=== PATIENT | male | born 1975 | race Two or more races ===

== ENCOUNTER 2017-02-21 17:59 | Inpatient (IN) | payer OTHER ==
--- NOTE | 2017-02-21 18:03 | PDOC ---
Rapid Medical Evaluation Time Seen by Provider: 02/21/17 18:01 Medical Evaluation: Allergies Allergy/AdvReac Type Severity Reaction Status Date / Time No Known Allergies Allergy Verified 11/16/16 15:15 02/21/17 18:01 41 year old male with a history of IDDM, HTN, dyslipidemia, complaining of lower abdominal pain, vomiting, and urinary retention since morning. V/s notable for HR 135, BP 170/100 -EKG -FSBG -Labs including CBC, comp, acetone, VBG -To Main ED for further evaluation
--- NOTE | 2017-02-21 18:34 | PDOC ---
History of Present Illness <Cas Jason - Last Filed: 02/21/17 23:07> - History of Present Illness Initial Comments: 02/21/17 19:25 Patient is a 41 year old male with significant medical hx of HTN, HLD, DM, and bilateral leg wounds (secondary to fall) who is presenting to the ED with lower abdominal pain, abdominal distention, and urinary retention since this morning. Patient complains of non-radiating lower abdominal pain that makes him feel as if he has to urinate but cannot. The patient endorses some associated nausea and multiple episodes of vomiting. His last BM occurred one hour prior to the onset of his symptoms and it was reported normal without any blood or mucous. The patient was able to urinate once but states that he was only able to expel a very small amount. Denies fever, chills, past abdominal surgeries. <Melissa Rick - Last Filed: 02/21/17 23:15> - General Chief Complaint: Pain Stated Complaint: CONSTIPATION Time Seen by Provider: 02/21/17 18:01 Past History - Past Medical History Diabetes: Yes HTN: Yes Hypercholesterolemia: Yes - Psycho/Social/Smoking Cessation Hx Suicidal Ideation: No Smoking History: Never smoked Have you smoked in the past 12 months: No Information on smoking cessation initiated: No <Cas Jason - Last Filed: 02/21/17 23:07> <Melissa Rick - Last Filed: 02/21/17 23:15> - Past Medical History Allergies/Adverse Reactions: Allergies Allergy/AdvReac Type Severity Reaction Status Date / Time No Known Allergies Allergy Verified 02/21/17 18:04 Home Medications: Ambulatory Orders Atorvastatin Ca [Lipitor] 10 mg PO DAILY 11/16/16 Exenatide Microspheres [Bydureon Pen] 2 mg SQ WEEKLY 11/16/16 Insulin Lispro Protamin/Lispro [Humalog Mix 75-25 Kwikpen] 8 unit SQ TID Lisinopril 5 mg PO DAILY 11/16/16 Metformin HCl [Metformin HCl ER] 2 tab PO DAILY 11/16/16 Lasix 20 mg PO DAILY 12/13/16 Review of Systems - Review of Systems Comments:: 02/21/17 19:27 GENERAL/CONSTITUTIONAL: No fever or chills. No weakness. HEAD, EYES, EARS, NOSE AND THROAT: No change in vision. No ear pain or discharge. No sore throat. CARDIOVASCULAR: No chest pain or shortness of breath. RESPIRATORY: No cough, wheezing, or hemoptysis. GASTROINTESTINAL: Lower abdominal pain, abdominal distention, nausea, vomiting. No diarrhea or constipation. GENITOURINARY: Urinary retention. No dysuria, or frequency. MUSCULOSKELETAL: No joint or muscle swelling or pain. No neck or back pain. SKIN: No rash NEUROLOGIC: No headache, vertigo, loss of consciousness, or change in strength/ sensation. <Melissa Rick - Last Filed: 02/21/17 23:15> *Physical Exam - Vital Signs Last Vital Signs Temp Pulse Resp BP Pulse Ox 97.6 F 130 H 18 170/100 96 02/21/17 18:00 02/21/17 18:00 02/21/17 18:00 02/21/17 18:00 02/21/17 18:00 <Cas Jason - Last Filed: 02/21/17 23:07> - Vital Signs Last Vital Signs Temp Pulse Resp BP Pulse Ox 97.6 F 130 H 18 170/100 96 02/21/17 18:00 02/21/17 18:00 02/21/17 18:00 02/21/17 18:00 02/21/17 18:00 - Physical Exam Comments: 02/21/17 19:28 GENERAL: Morbidly obese. Awake, alert, and fully oriented. Obviously very uncomfortable, cannot sit still on bed, secondary to inability to urinate. HEAD: No signs of trauma EYES: PERRLA, EOMI, sclera anicteric, conjunctiva clear ENT: Auricles normal inspection, hearing grossly normal, nares patent, oropharynx clear without exudates. Moist mucosa NECK: Normal ROM, supple, no lymphadenopathy, JVD, or masses LUNGS: Breath sounds equal, clear to auscultation bilaterally. No wheezes, and no crackles HEART: Regular rate and rhythm, normal S1 and S2, no murmurs, rubs or gallops ABDOMEN: Massive, protuberant, distended. Bowel sounds are high pitched and far apart. No guarding, no rebound. EXTREMITIES: Normal range of motion, no edema. No clubbing or cyanosis. No cords, erythema, or tenderness NEUROLOGICAL: Cranial nerves II through XII grossly intact. Normal speech, normal gait SKIN: Ulcers on both feet, draining green pus. Warm, Dry, normal turgor, no rashes or lesions noted. ENDOCRINE: No increased thirst. No abnormal weight change. HEMATOLOGIC/LYMPHATIC: No anemia, easy bleeding, or history of blood clots. ALLERGIC/IMMUNOLOGIC: No hives or skin allergy. <Melissa Rick - Last Filed: 02/21/17 23:15> ED Treatment Course - LABORATORY CBC & Chemistry Diagram: 02/21/17 19:00 02/21/17 19:00 <Cas Jason - Last Filed: 02/21/17 23:07> - LABORATORY CBC & Chemistry Diagram: 02/21/17 19:00 02/21/17 19:00 <Melissa Rick - Last Filed: 02/21/17 23:15> Medical Decision Making - Medical Decision Making 02/21/17 23:13 Unable to receive good abdominal x-ray film of the patient due to the impediment of his size. The patient is also too large to receive CAT scan, so he will be treated based on clinical impression. <Melissa Rick - Last Filed: 02/21/17 23:15> *DC/Admit/Observation/Transfer - Discharge Dispostion Admit: Yes - Attestations Physician Attestion: 02/21/17 18:34 I, Dr. Cas Jason, attest that this document has been prepared under my direction and personally reviewed by me in its entirety. I further attest, that it accurately reflects all work, treatment, procedures and medical decision -making performed by me. <Cas Jason - Last Filed: 02/21/17 23:07> - Attestations Scribe Attestion: 02/21/17 19:31 Documentation prepared by Melissa Rick, acting as medical laboratory assistant for Cas Jason MD. <Melissa Rick - Last Filed: 02/21/17 23:15> Diagnosis at time of Disposition: Lymphedema, Bilateral lower leg cellulitis, Acute urinary retention, Partial obstruction of small intestine Uncontrolled diabetes mellitus Qualifiers: Diabetes mellitus type: due to underlying condition Diabetes mellitus complication status: with unspecified complications - Referrals Referrals: New De Guzman MD [Primary Care Provider] -
[2017-02-21 19:31] LABS: VENOUS BLOOD GAS HCO3 24.4 meq/L (19-25); VENOUS PH 7.42 (7.32-7.42)
[2017-02-21 19:52] LABS: BASOPHIL 0.8 % (0-2.0); EOSINOPHIL 0.2 % (0-4.5); MCH 28.3 pg (25.7-33.7); MCHC 33.2 g/dl (32.0-35.9); MEAN CELL VOLUME 85.3 fl (80-96); MEAN PLT VOLUME 8.9 fl (7.5-11.1); NEUTROPHILS 76.8 % (42.8-82.8); PLATELET COUNT 256 K/MM3 (134-434); RDW 14.3 % (11.9-15.9); WHITE BLOOD COUNT 12.3 K/mm3 (4.0-10.0)
[2017-02-21 19:58] LABS: URINE APPEARANCE SLCLOUDY; URINE BILIRUBIN NEGATIVE (NEGATIVE); URINE COLOR LTYELLOW; URINE GLUCOSE (UA) NEGATIVE (NEGATIVE); URINE KETONE TRACE (NEGATIVE); URINE LEUK ESTERASE NEGATIVE (NEGATIVE); URINE NITRITE NEGATIVE (NEGATIVE); URINE PROTEIN NEGATIVE (NEGATIVE); URINE UROBILINOGEN NEGATIVE E.U./dl (0.2-1.0)
[2017-02-21 19:59] LABS: URINE BLOOD 3+ (NEGATIVE)
[2017-02-21 20:04] LABS: URIC ACID CRYSTALS RARE /hpf (NONE SEEN); URINE MUCUS RARE; URINE RBC 386 /hpf (0-3); URINE WBC 18 /hpf (3-5)
[2017-02-21] MEDS ORDERED: ONDANSETRON 4 MG/2 ML VIAL IVPB ONE (20:08)
[2017-02-21] MEDS ORDERED: HYDROmorphone HCL CARPU-JECT 2 MG/1 ML DISP.SYRIN IVPB ONE (20:08)
[2017-02-21] MEDS ORDERED: SODIUM CHLORIDE 1,000 ML IV STA (20:09)
[2017-02-21] MEDS ORDERED: HYDROmorphone HCL CARPU-JECT 1 MG/1 ML DISP.SYRIN ONE (20:10)
[2017-02-21] MEDS ORDERED: ONDANSETRON 4 MG/2 ML VIAL ONE (20:10)
[2017-02-21 20:16] LABS: ALBUMIN 3.6 g/dl (3.4-5.0); ANION GAP 11 (8-16); CALCIUM 9.2 mg/dL (8.5-10.1); CO2 25 mmol/L (21-32); GLUCOSE,RANDOM 184 mg/dL (74-106); SGOT/AST 15 U/L (15-37); SGPT/ALT 23 U/L (12-78)
[2017-02-21 20:18] LABS: ALK PHOS 72 U/L (45-117); BILIRUBIN,TOTAL 0.4 mg/dL (0.2-1.0); TOT PROT 7.3 g/dl (6.4-8.2)
[2017-02-21] MEDS ORDERED: PIPERACILLIN/TAZOB 3.375 GM/50 ML PRE-DOCKED IV ONE (21:27)
[2017-02-21] MEDS ORDERED: VANCOMYCIN 1 GRAM (PRE-DOCKED) 1,000 MG/250 ML BAG IVPB ONE (21:27)
[2017-02-21] MEDS ORDERED: PIPERACILLIN/TAZOB 3.375 GM 50 ML IVPB ONE (23:07)
[2017-02-21] MEDS ORDERED: VANCOMYCIN 1 GRAM (PRE-DOCKED) 250 ML IVPB ONE (23:07)
[2017-02-21] MEDS ORDERED: FAMOTIDINE 20 MG/50 ML IVPB 50 ML IVPB ONE ×2 (23:36→23:47)
[2017-02-21] MEDS ORDERED: methylPREDNISolone NA SUCC 125 MG/2 ML VIAL IVPB ONE (23:37)
[2017-02-21] MEDS ORDERED: methylPREDNISolone NA SUCC 125 MG/2 ML VIAL ONE (23:47)
[2017-02-21 23:51] LABS: ACETONE SERUM NEGATIVE (NEGATIVE)
--- NOTE | 2017-02-22 00:03 | PN ---
<Lupe Villeda - Last Filed: 02/22/17 00:03> Teaching Attending Note Name of Resident: Alison Sanchez <Sayda Merchant - Last Filed: 02/22/17 01:19> Teaching Attending Note ATTENDING PHYSICIAN STATEMENT I saw and evaluated the patient. I reviewed the resident's note and discussed the case with the resident. I agree with the resident's findings and plan as documented. SUBJECTIVE: 41 yo M with PMHx of morbid obesity, who presents to the ED with lower abdominal pain and urinary retention since this morning. The patient reports associated nausea, and multiple episodes of vomiting after having lunch ( vegetable soup). He notes his last BM occurred before the onset of his pain ( nonbloody, nonmucoid). The patient states he was able to void urine however denies any dysuria, frequency, urgency or hematuria. He denies chest pain, headache or dizziness. He denies fever, chills, diarrhea or constipation. PMHx: HTN, HLD, DM, bilateral leg wounds s/p fall, kidney stones PSHx: Denies Social History: Denies toxic habits Family hx: Mother diagnosed with bone CA, HTN, liver chirrosis OBJECTIVE: Last Vital Signs Temp Pulse Resp BP Pulse Ox 97.9 F 78 16 145/88 99 02/22/17 00:15 02/22/17 00:15 02/22/17 00:15 02/22/17 00:15 02/22/17 00:15 GENERAL: +Morbidly obese. Awake, alert, and fully oriented, in no acute distress. +Pseudomonas like odor. HEENT: Atraumatic. PERRLA, EOMI. Moist mucosa. No JVD. +NG tube in place at low suction in place with clear fluid w food particles draining. LUNGS: No distress, speaks full sentences, clear to auscultation bilaterally HEART: Regular rate and rhythm, normal S1 and S2, no murmurs, rubs or gallops, peripheral pulses normal and equal bilaterally. ABDOMEN: + Obese. Soft, nontender, normoactive bowel sounds. No guarding, no rebound. No masses.+Lower abdomen with slight erythema and peau dorange appearance. : +Genitalia with oconnell catheter and dark brown and yellow urine with some blood at urethra. +Folliculitis at groin area. EXTREMITIES: +Bilateral LE edematous with weeping lesions with hyperkeratosis with clean dressing in place. +Palpable pulses and limited ROM secondary to obesity. Normal inspection, Normal range of motion. No clubbing or cyanosis. NEUROLOGICAL: Cranial nerves II through XII grossly intact. Normal speech, gait deffered, no focal sensorimotor deficits SKIN: Warm, Dry, normal turgor, no rashes or lesions noted. CBCD WBC 12.3 K/mm3 (4.0-10.0) H 02/21/17 19:00 RBC 4.62 M/mm3 (4.00-5.60) 02/21/17 19:00 Hgb 13.1 GM/dL (11.7-16.9) 02/21/17 19:00 Hct 39.4 % (35.4-49) 02/21/17 19:00 MCV 85.3 fl (80-96) 02/21/17 19:00 MCHC 33.2 g/dl (32.0-35.9) 02/21/17 19:00 RDW 14.3 % (11.9-15.9) 02/21/17 19:00 Plt Count 256 K/MM3 (134-434) 02/21/17 19:00 MPV 8.9 fl (7.5-11.1) 02/21/17 19:00 CMP Sodium 136 mmol/L (136-145) 02/21/17 19:00 Potassium 4.2 mmol/L (3.5-5.1) 02/21/17 19:00 Chloride 100 mmol/L (98-107) 02/21/17 19:00 Carbon Dioxide 25 mmol/L (21-32) 02/21/17 19:00 Anion Gap 11 (8-16) 02/21/17 19:00 BUN 19 mg/dL (7-18) H 02/21/17 19:00 Creatinine 1.0 mg/dL (0.7-1.3) D 02/21/17 19:00 Creat Clearance w eGFR > 60 (>60) 02/21/17 19:00 Calcium 9.2 mg/dL (8.5-10.1) 02/21/17 19:00 Total Bilirubin 0.4 mg/dL (0.2-1.0) D 02/21/17 19:00 AST 15 U/L (15-37) 02/21/17 19:00 ALT 23 U/L (12-78) D 02/21/17 19:00 Alkaline Phosphatase 72 U/L (45-117) D 02/21/17 19:00 Total Protein 7.3 g/dl (6.4-8.2) 02/21/17 19:00 Albumin 3.6 g/dl (3.4-5.0) 02/21/17 19:00 ASSESSMENT AND PLAN: Wound care consult Vancomycin and Zosyn Add Flagyl Surgical consult for possible obstruction NGtube at low suction IV protonix Zofran PRN Follow up Lactic Acid and labs in AM Sliding Scale insulin NPO IVF-- D5 half NS Nutrition consult Social work and PT consult Fluconazole powder DVT PPx Heparin 5,000 SQ Surgical consult- Dr. Pang Documentation prepared by Sayda Merchant, acting as certified court/medical interpreter for Lupe Villeda MD
[2017-02-22] MEDS ORDERED: ONDANSETRON 4 MG/2 ML VIAL IVPB PRN (00:05)
[2017-02-22] MEDS ORDERED: DEXTROSE 5%-0.45% SALINE 1,000 ML IV SCH (00:15)
--- NOTE | 2017-02-22 01:45 | HP ---
CHIEF COMPLAINT: Abdominal pain and urinary retention PCP: No PCP ( would like to find a PCP in [place]) Yasir Jarvis ( Wound care at [facility]) HISTORY OF PRESENT ILLNESS: Patient is a 41 year old male presented with the chief complaints of severe abdominal pain and urinary retention. As per the patient, it started yesterday morning with abdominal discomfort, feeling 'queasy', burning sensation over the supra pubic area, had a small bowel movement then had vomiting, non projectile, non bloody, containing food particles. Initially thought it was a stomach bug. He then drank a couple of glasses of water but was able to urinate only scanty in amount. He was surprised as normally he has increased frequency since he is on Lasix. He then had 6 episodes of vomiting all day with severe suprapubic and left/ right lumbar area pain, intermittent in nature, 7/10 in intensity, non radiating. Also had gassy feeling upto his throat. Due to his abdominal pain, he was unable to move. No aggravating or relieving factors. Since it was unbearable, he came to the ED. No other urinary symptoms except for mild urinary retention. Patient mentioned he tried to eat vegetable soup for lunch but couldn't keep anything down. He states that he has had B/L leg wound, since 2 years after he scracted both legs in stairs with a metal at the edge. Now the wound is getting worse, describes as draining fowl smelling serosanguinous fluids from the wounds. Patient has been going to wound care once a week at [facility] which seems to be helping. Hasn't gone since 2 weeks. He says its difficult for him to take care of the wound himself as he can't bend due to obesity. Due to his leg wound and ankle sprain (2 years ago), his mobility has been limited and gained weight quickly. Has been on DASH diet since a month and has lost about 16 lbs. While performing a physical examination in the ED, and noticed rashes around his face with hives. Found out that patient had just received zosyn. Hence, zosyn was immediately stopped and he was given IV Benadryl, IV solumedrol 125mg and IV Famotidine stat. ER course was notable for: (1) Afebrile, Tachycardic (130bpm), Hypertensive 170/100 mmHg); Leukocytosis 12.3; RBS 184; UA-Trace ketones (2) Abdominal X-ray- Dilated bowel loops (3) Nacl 1L; Dilaudid 2mg Recent Travel: None PAST MEDICAL HISTORY: Hypertension, HLD, Diabetes Mellitus, Lymphedema, B/L leg wound, ankle sprain, Nephrolithiasis PAST SURGICAL HISTORY: None Social History: Smoking: Denies Alcohol: Denies Drugs: Denies Family History: Mother diagnosed with bone CA, HTN, liver chirrosis Allergies Penicillins Allergy (Verified 02/21/17 23:40) HOME MEDICATIONS: Home Medications Medication Instructions Recorded Atorvastatin Ca [Lipitor] 10 mg PO DAILY 11/16/16 Exenatide Microspheres [Bydureon 2 mg SQ WEEKLY 11/16/16 Pen] Insulin Lispro Protamin/Lispro 8 unit SQ TID 11/16/16 [Humalog Mix 75-25 Kwikpen] Lisinopril 5 mg PO DAILY 11/16/16 Metformin HCl [Metformin HCl ER] 2 tab PO DAILY 11/16/16 Lasix 20 mg PO DAILY 12/13/16 REVIEW OF SYSTEMS CONSTITUTIONAL: Absent: fever, chills, diaphoresis, generalized weakness, malaise, loss of appetite, weight change HEENT: Absent: rhinorrhea, nasal congestion, throat pain, throat swelling, difficulty swallowing, mouth swelling, ear pain, eye pain, visual changes CARDIOVASCULAR: Absent: chest pain, syncope, palpitations, irregular heart rate, lightheadedness , peripheral edema RESPIRATORY: Absent: cough, shortness of breath, dyspnea with exertion, orthopnea, wheezing, stridor, hemoptysis GASTROINTESTINAL: Present: abdominal pain, abdominal distension, nausea, vomiting Absent: diarrhea, constipation, melena, hematochezia GENITOURINARY: Present: urinary retention Absent: dysuria, frequency, urgency, hesitancy, hematuria, flank pain, genital pain MUSCULOSKELETAL: Absent: myalgia, arthralgia, joint swelling, back pain, neck pain SKIN: Absent: rash, itching, pallor HEMATOLOGIC/IMMUNOLOGIC: Absent: easy bleeding, easy bruising, lymphadenopathy, frequent infections ENDOCRINE: Absent: unexplained weight gain, unexplained weight loss, heat intolerance, cold intolerance NEUROLOGIC: Absent: headache, focal weakness or paresthesias, dizziness, unsteady gait, seizure, mental status changes, bladder or bowel incontinence PSYCHIATRIC: Absent: anxiety, depression, suicidal or homicidal ideation, hallucinations. PHYSICAL EXAMINATION Vital Signs - 24 hr 02/22/17 00:15 Temperature 97.9 F Pulse Rate [ 78 Apical] Respiratory 16 Rate Blood Pressure 145/88 [Left Arm] O2 Sat by Pulse 99 Oximetry (%) GENERAL: Morbidly obese, Awake, alert, and fully oriented, in no acute distress , NGT in place. HEAD: Normal with no signs of trauma. EYES: EOM intact, no pallor or icterus. EARS, NOSE, THROAT: Ears normal. Moist mucous membranes. NECK: Normal range of motion, supple without lymphadenopathy, JVD, or masses. LUNGS: Breath sounds equal, clear to auscultation bilaterally. No wheezes, and no crackles. No accessory muscle use. HEART: Regular rate and rhythm, normal S1 and S2 without murmur, rub or gallop. ABDOMEN: Soft, tenderness over the supra pubic area and left and right lumbar area, distended +, normoactive bowel sounds, no guarding, no rebound, no masses. Hepatosplenomegaly couldn't be appreciated due to obesity. MUSCULOSKELETAL: Normal range of motion at all joints. No bony deformities or tenderness. No CVA tenderness. UPPER EXTREMITIES: 2+ pulses, warm, well-perfused. No cyanosis. No clubbing. No peripheral edema. LOWER EXTREMITIES: B/L lymphedema, dressing applied over the wound, no soakage, fowl smellling. NEUROLOGICAL: Cranial nerves II-XII intact. Normal speech. Gait not observed. PSYCHIATRIC: Cooperative. Good eye contact. Appropriate mood and affect. GENITOURINARY: Oconnell catheter in place, dark brown and yellow urine with some blood at urethra. SKIN: Warm, dry, normal turgor, rashes with hives all over the face; folliculitis over the pubic area; fungal infection over the supra pubic area. ASSESSMENT/PLAN: Patient is a 41 year old male with significant past medical history of Hypertension, HLD, Diabetes Mellitus, Lymphedema, B/L leg wound, ankle sprain, Nephrolithiasis presented with the chief complaints of severe abdominal pain and urinary retention. # Possible Small bowel Obstruction Patient presented with severe abdominal pain with nausea, 6 episodes of vomiting and mild urinary retention On arrival, Afebrile, Tachycardic (130bpm), Hypertensive 170/100 mmHg); Leukocytosis 12.3; RBS 184; UA-Trace ketones In the ED, he received Nacl 1L; Dilaudid 2mg, Vancomycin and Zosyn. As soon as he received zosyn, he developed rashes with hives all over his face. It was stopped immediately and IV Benadryl, IV solumedrol and IV famotidine was given Stat. CT scan of abdomen/pelvis couldn't be done as patient is morbidly obese and overweight for the CT scan. Abdominal x-ray report as mentioned above. Admitted in Med-Surg NPO NG tube IV fluids-D5-1/2 NS IV Flagyl Q8H IV Levofloxacin 750mg Daily Pain control Zofran 8mg Q6H PRN Dr. Pang consult placed # Sepsis likely due to B/L leg wound Has B/L leg wound since 2 years, getting worse, visits wound care once a week x 2months, hasn't visited since 2 weeks. Draining serosanguinous fluids, fowl smelling SIRS criteria (leukocytosis of 12.3; Tachycardic 130bpm + source) Lactic acid 0.9 IVF continued IV Vancomycin 1250mg continued, vanc trough to be sent one hour before the 4th dose Wound care consult placed Wound culture pending Needs penitentiary rehab vamp cut out worker consult placed # Morbidly obese Discussed in depth about various possiblities to reduce weight. Patient currently unable to exercise due to his leg wounds. Swimming would be an option after his wound heals Wash Driller Helper consult placed Needs penitentiary rehab # Uncontrolled Diabetes Last HbA1c- 16 Finger stick glucose monitoring Insulin sliding scale HbA1c pending # Mild urinary retention with no other urinary symptoms In the ED, while placing oconnell, got 300mls of urine. Oconnell catheter in place. # Hypertension Lisinopril 5mg on hold due to NPO RN to notify MD if BP > 150/90mmHg # Hyperlipidemia Lipitor on hold Lipid panel pending # Lymphedema Tried the pressure machine but is unable to do so due to muscle cramps. Maybe after the wound heals, compression stockings can help. # Fungal Infection In the groin area Nystatin powder Maintain hygiene, keep the area dry # FEN IV D5-1/2 NS @ 100mls/hr Electrolytes to be repeated tomorrow NPO # Prophylaxis For DVT- On Heparin 5000 IU sq For GI- IV Pantoprazole 40mg BID # Code Status: Full Code # Dispo: Admitted in Med-Surg. Duration of stay unknown. Case seen and discussed with Dr. Villeda. Illness, Investigation and Plan of care explained to the patient. He verbalized understanding. Case seen and discussed with Dr. Villeda. Visit type - Emergency Visit Emergency Visit: Yes ED Registration Date: 02/21/17 Care time: The patient presented to the Emergency Department on the above date and was hospitalized for further evaluation of their emergent condition. - New Patient This patient is new to me today: Yes Date on this admission: 02/21/17 - Critical Care Critical Care patient: No
[2017-02-22 04:14] VITALS: BMI 90.8
[2017-02-22] MEDS: METRONIDAZOLE PREMIXED IVPB 50 ML IVPB SCH ×2 (04:26→09:51)
[2017-02-22] MEDS: HEPARIN NA (PORCINE) 5,000 UNITS/ML 1ML VIAL SQ SCH ×3 (05:58→21:34)
[2017-02-22] MEDS: LEVOFLOXACIN 750 MG IVPB 150 ML IVPB SCH (05:58)
[2017-02-22] MEDS: INSULIN SLIDING SCALE (NOVOLOG) 1 VIAL SQ SCH ×4 (06:09→21:36)
[2017-02-22 08:25] LABS: BASOPHIL 0.3 % (0-2.0); MCH 28.3 pg (25.7-33.7); MCHC 32.7 g/dl (32.0-35.9); MEAN CELL VOLUME 86.4 fl (80-96); MEAN PLT VOLUME 8.6 fl (7.5-11.1); NEUTROPHILS 89.2 % (42.8-82.8); PLATELET COUNT 242 K/MM3 (134-434); RDW 14.6 % (11.9-15.9); WHITE BLOOD COUNT 8.6 K/mm3 (4.0-10.0)
[2017-02-22 08:30] LABS: INR 1.17 (0.82-1.09); PROTHROMBIN TIME (PATIENT) 12.9 SEC (9.98-11.88)
[2017-02-22 08:33] LABS: ACTIVATED PTT 29.2 SECONDS (26.9-34.4)
[2017-02-22 08:47] LABS: CHOLESTEROL 109 mg/dL (50-200)
[2017-02-22 08:53] LABS: ALBUMIN 3.2 g/dl (3.4-5.0); ANION GAP 11 (8-16); CALCIUM 8.9 mg/dL (8.5-10.1); CO2 27 mmol/L (21-32); GLUCOSE,RANDOM 289 mg/dL (74-106); MAGNESIUM 2.3 mg/dL (1.8-2.4); PHOSPHOROUS 3.4 mg/dL (2.5-4.9); SGOT/AST 12 U/L (15-37)
[2017-02-22 09:01] LABS: ALK PHOS 62 U/L (45-117); BILIRUBIN,TOTAL 0.5 mg/dL (0.2-1.0); CREATININE 0.9 mg/dL (0.7-1.3); SGPT/ALT 20 U/L (12-78); TOT PROT 6.8 g/dl (6.4-8.2)
[2017-02-22] MEDS: PANTOPRAZOLE SODIUM 40 MG/100 ML PRE-DOCKED IVPB SCH ×2 (09:50→21:34)
[2017-02-22] MEDS ORDERED: PANTOPRAZOLE SODIUM 40 MG in SODIUM CHLORIDE 100 ML IVPB SCH (10:00)
[2017-02-22] MEDS ORDERED: FUROSEMIDE 40 MG/4 ML INJECTABLE VIAL IVPB SCH (10:00)
[2017-02-22] MEDS ORDERED: VANCOMYCIN 1,250 MG in DEXTROSE 5%-WATER - 250 ML IVPB SCH (10:00)
--- NOTE | 2017-02-22 10:03 | EKG ---
Test Reason : Blood Pressure : / mmHG Vent. Rate : 088 BPM Atrial Rate : 088 BPM P-R Int : 120 ms QRS Dur : 108 ms QT Int : 384 ms P-R-T Axes : 020 027 017 degrees QTc Int : 464 ms POOR DATA QUALITY, INTERPRETATION MAY BE ADVERSELY AFFECTED NORMAL SINUS RHYTHM INCOMPLETE RIGHT BUNDLE BRANCH BLOCK NO PREVIOUS ECGS AVAILABLE Confirmed by SID GREEN MD ([id number]) on 02/22/2017 10:03:26 AM Referred By: Confirmed By:SID GREEN MD
--- NOTE | 2017-02-22 11:15 | CONSULT ---
Consult Consult Specialty:: surgery Reason for Consultation:: SBO? - History of Present Illness Chief Complaint: abd pain History of Present Illness: pt is a 41M with lower abd pain and urinary retention. he is a BMI 90 patient and only had xray. could not fit in CT. Patient got NGT and put out 150cc overnight. +flatus. got oconnell and it is full of clear urine. his wbc is now 8. glucose poorly controlled. he denies any kind of abd pain right now. - Smoking History Smoking history: Never smoked Have you smoked in the past 12 months: No Home Medications - Allergies Allergies/Adverse Reactions: Allergies Allergy/AdvReac Type Severity Reaction Status Date / Time Penicillins Allergy Verified 02/21/17 23:40 piperacillin sodium Allergy Verified 02/22/17 03:52 [From Zosyn] tazobactam sodium Allergy Verified 02/22/17 03:52 [From Zosyn] - Home Medications Home Medications: Ambulatory Orders Atorvastatin Ca [Lipitor] 10 mg PO DAILY 11/16/16 Exenatide Microspheres [Bydureon Pen] 2 mg SQ WEEKLY 11/16/16 Insulin Lispro Protamin/Lispro [Humalog Mix 75-25 Kwikpen] 8 unit SQ TID Lisinopril 5 mg PO DAILY 11/16/16 Metformin HCl [Metformin HCl ER] 2 tab PO DAILY 11/16/16 Lasix 20 mg PO DAILY 12/13/16 Family Disease History - Family Disease History Family History: Denies Review of Systems - Review of Systems Constitutional: denies: Chills, Fever Eyes: denies: Blind Spots, Blurred Vision HENT: denies: Difficult Swallowing, Mouth Swelling Neck: denies: Decreased ROM, Lumps Cardiovascular: denies: Chest Pain, Edema Respiratory: denies: Cough, SOB Gastrointestinal: reports: Abdominal Pain Genitourinary: reports: Other (retention?) Breasts: denies: Pain, Skin Changes Musculoskeletal: denies: Back Pain, Crepitus Integumentary: reports: Other (legs with chronic infection/venous stasis?) Neurological: denies: Change in LOC, Incoordination, Unsteady Gait Endocrine: reports: Other (poor DM control). denies: Excessive Sweating, Flushing Hematology/Lymphatic: denies: Easily Bruised, Excessive Bleeding Psychiatric: denies: Altered Sleep Pattern, Anxiety Physical Exam Vital Signs: Vital Signs Temperature 97.8 F 02/22/17 10:04 Pulse Rate 94 H 02/22/17 10:04 Respiratory Rate 19 02/22/17 10:04 Blood Pressure 120/55 02/22/17 10:04 O2 Sat by Pulse Oximetry (%) 93 L 02/22/17 02:10 Constitutional: Yes: No Distress, Calm Eyes: Yes: Conjunctiva Clear, EOM Intact HENT: Yes: Atraumatic, Normocephalic Neck: Yes: Supple, Trachea Midline Cardiovascular: Yes: Regular Rate and Rhythm Respiratory: Yes: Regular, CTA Bilaterally Gastrointestinal: Yes: Soft, Abdomen, Obese, Other (could not appreciate hernias but abd obesity is very impressive). No: Distention, Tenderness ...Rectal Exam: Yes: Deferred Renal/: Yes: Oconnell Present. No: CVA Tenderness - Left, CVA Tenderness - Right Musculoskeletal: No: Joint Stiffness, Joint Swelling Extremities: No: Calf Tenderness, Erythema Integumentary: No: Erythema, Rash Neurological: Yes: Alert, Oriented Psychiatric: Yes: Alert, Oriented Labs: CBC, BMP 02/22/17 06:30 02/22/17 06:30 Imaging - Results X-ray: Image Reviewed Problem List - Problems (1) Acute urinary retention Code(s): R33.8 - OTHER RETENTION OF URINE (2) Lymphedema Code(s): I89.0 - LYMPHEDEMA, NOT ELSEWHERE CLASSIFIED (3) Partial obstruction of small intestine Assessment/Plan: doubt SBO as dx no prior surgical hx ngt d/belen start clear liquid diet may have had some ileus from urinary retention? oconnell as per medicine adv diet as tolerated reconsult prn Code(s): K56.69 - OTHER INTESTINAL OBSTRUCTION (4) Uncontrolled diabetes mellitus Code(s): E11.65 - TYPE 2 DIABETES MELLITUS WITH HYPERGLYCEMIA Qualifiers: Diabetes mellitus type: due to underlying condition Diabetes mellitus complication status: with unspecified complications
[2017-02-22] MEDS: VANCOMYCIN 1,250 MG in DEXTROSE 5%-WATER - 250 ML IVPB SCH (11:49)
[2017-02-22] MEDS: NYSTATIN POWDER 100,000 UNITS/GM - 15 GM TOPICAL POWDER TP SCH (11:49)
[2017-02-22] MEDS ORDERED: SODIUM CHLORIDE 1,000 ML IV SCH (12:30)
[2017-02-22 13:13] LABS: LDL CHOLESTEROL (ONLY SJRH) 62 mg/dL (5-100)
[2017-02-22 13:37] LABS: THYROID STIMULATING HORMONE 0.69 uIU/ml (0.358-3.74)
--- NOTE | 2017-02-22 13:40 | PN ---
Physical Exam: SUBJECTIVE: Patient seen and examined Patient resting in bed NAD. afebrilke hemodynamically stable. NGT pulled out this morning. tolerating liquids. Denies n/v, abd pain. No BM since yesterday. Denies having buring with urineation before oconnell was placed. denies f/c, chest pain, sob. States he missed 2 wound care appointments but thinks his legs look about the same as baseline. OBJECTIVE: Vital Signs Period Temp Pulse Resp BP Sys/Eric Pulse Ox Last 24 Hr 97.3 F-98.1 F 78-94 16-19 120-145/55-88 93-99 GENERAL: The patient is awake, alert, and fully oriented, in no acute distress. HEAD: Normal with no signs of trauma. EYES: PERRL, extraocular movements intact, sclera anicteric, conjunctiva clear. No ptosis. ENT: moist mucous membranes. NECK: supple. LUNGS: restricted air movement, distal breath sounds. HEART: Regular rate and rhythm, S1, S2 ABDOMEN: obese, Soft, nontender, nondistended, normoactive bowel sounds, no guarding, no rebound, no hepatosplenomegaly, no masses. Lower EXTREMITIES: 1+ pulses, warm, well-perfused, b/l 3+ edema, chronic lumphadenopathy, reddish discoloration, posterior b/l calf ulcers, minimal foul smelling green discharge, pink granulation tissue. No apparent cellulitis NEUROLOGICAL: Cranial nerves II through XII grossly intact. Normal speech, gait not observed. PSYCH: Normal mood, normal affect. SKIN: Warm, dry, lesions as above Laboratory Results - last 24 hr 02/22/17 02/22/17 02/22/17 00:49 05:42 06:30 WBC 8.6 D RBC 4.70 Hgb 13.3 Hct 40.6 MCV 86.4 MCHC 32.7 RDW 14.6 Plt Count 242 MPV 8.6 Neutrophils % 89.2 H Lymphocytes % 9.3 D Monocytes % 1.2 L D Eosinophils % 0.0 D Basophils % 0.3 INR PTT (Actin FS) Sodium Potassium Chloride Carbon Dioxide Anion Gap BUN Creatinine Creat Clearance w eGFR POC Glucometer 259 Random Glucose Lactic Acid 0.973 Calcium Phosphorus Magnesium Total Bilirubin AST ALT Alkaline Phosphatase Total Protein Albumin Triglycerides Cholesterol Total LDL Cholesterol HDL Cholesterol 0302/22/17 02/22/17 06:30 06:30 06:30 WBC RBC Hgb Hct MCV MCHC RDW Plt Count MPV Neutrophils % Lymphocytes % Monocytes % Eosinophils % Basophils % INR 1.17 H PTT (Actin FS) 29.2 Sodium 138 Potassium 4.6 Chloride 100 Carbon Dioxide 27 Anion Gap 11 BUN 15 D Creatinine 0.9 Creat Clearance w eGFR > 60 POC Glucometer Random Glucose 289 H D Lactic Acid Calcium 8.9 Phosphorus 3.4 Magnesium 2.3 Total Bilirubin 0.5 D AST 12 L ALT 20 Alkaline Phosphatase 62 Total Protein 6.8 Albumin 3.2 L Triglycerides 51 Cholesterol 109 Total LDL Cholesterol 62 HDL Cholesterol 44 02/22/17 11:51 WBC RBC Hgb Hct MCV MCHC RDW Plt Count MPV Neutrophils % Lymphocytes % Monocytes % Eosinophils % Basophils % INR PTT (Actin FS) Sodium Potassium Chloride Carbon Dioxide Anion Gap BUN Creatinine Creat Clearance w eGFR POC Glucometer 273 Random Glucose Lactic Acid Calcium Phosphorus Magnesium Total Bilirubin AST ALT Alkaline Phosphatase Total Protein Albumin Triglycerides Cholesterol Total LDL Cholesterol HDL Cholesterol Active Medications Generic Name Dose Route Start Last Admin Trade Name Ezequiel PRN Reason Stop Dose Admin Heparin Sodium (Porcine) 5,000 unit 02/22/17 06:00 02/22/17 05:58 Heparin - SQ 5,000 unit TID NANCY Administration Levofloxacin 150 mls @ 100 mls/hr 02/22/17 06:00 02/22/17 05:58 Levaquin 750 Mg Premixed Ivpb - IVPB 100 mls/hr DAILY NANCY Administration Vancomycin HCl 1,250 mg/ 250 mls @ 166.667 mls/hr 02/22/17 10:00 02/22/17 11:49 Dextrose IVPB 166.667 mls/hr DAILY NANCY Administration Protocol Sodium Chloride 1,000 mls @ 75 mls/hr 02/22/17 12:30 Normal Saline - IV ASDIR NANCY Metronidazole 100 mls @ 100 mls/hr 02/22/17 18:00 Flagyl 500mg Premixed Ivpb - IVPB Q8H-IV NANCY Insulin Aspart 1 vial 02/22/17 07:00 02/22/17 11:53 Novolog Vial Sliding Scale - SQ 6 units ACHS ANNCY Administration Protocol Nystatin 1 applic 02/22/17 10:00 02/22/17 11:49 Nystop Powder - TP 1 applic DAILY NANCY Administration Ondansetron HCl 8 mg 02/22/17 00:05 Zofran Injection IVPB Q6H PRN NAUSEA Pantoprazole Sodium 40 mg 02/22/17 10:00 02/22/17 09:50 Protonix 40mg Ivpb (Pre-Docked) IVPB 40 mg BID NANCY Administration ASSESSMENT/PLAN: Patient is a 41 year old male with significant past medical history of Hypertension, HLD, Diabetes Mellitus, Lymphedema, B/L leg wound, ankle sprain, Nephrolithiasis presented with the chief complaints of severe abdominal pain and urinary retention. Urinary retention r/o renal stone obstruction, r/o UTI -accompanied by n/v (resolved) -abd xray no evident of bowel obstruction -ho history bowel surgery -Tiffanie consult appreciated, sign off -history of renal stones -Oconnell 600 cc UO, input 1450 -UA hematuria, 18 wbc -Renal US r/o hydro -Ideally pelvic CT but unable due to obesity -flomax -can stop IVF -consider urology consult B/L leg wound -chronic x 2 yrs -chronic lymphedema -regular wound care visits -posterior calf wounds, minimal foul smelling green discharge, doesn't appear infected -wound care consult appreciated, wounds at baseline, no acute infection -f/u in wound care outpatient -daily dressing changes -contine MRSA and Pseudominas coverage (abner Anand, keyshawn: zosyn allergy) until ID evaluates -ID counsult -hold lasix Morbid obesity -Discussed weight loss strategy. -Director Asset consult placed Uncontrolled IDDM2 -Last HbA1c- 16 -repeat -Insulin sliding scale -will likely require basal coverage HTN -hold Lisinopril 5mg -currently normotensive off meds. will start on ca channel myles if hypertensive HLD -Lipitor on hold -Lipid panel pending Fungal Infection -groin area -Nystatin powder FEN No ivf lytes stable soft diabetic diet PPX: For DVT- On Heparin 5000 IU sq For GI- IV Pantoprazole 40mg BID Dispo: Med-Surg Problem List - Problems (1) Acute urinary retention Code(s): R33.8 - OTHER RETENTION OF URINE (2) Bilateral lower leg cellulitis Code(s): L03.116 - CELLULITIS OF LEFT LOWER LIMB L03.115 - CELLULITIS OF RIGHT LOWER LIMB (3) Lymphedema Code(s): I89.0 - LYMPHEDEMA, NOT ELSEWHERE CLASSIFIED (4) Uncontrolled diabetes mellitus Code(s): E11.65 - TYPE 2 DIABETES MELLITUS WITH HYPERGLYCEMIA Qualifiers: Diabetes mellitus type: due to underlying condition Diabetes mellitus complication status: with unspecified complications Visit type - Emergency Visit Emergency Visit: Yes ED Registration Date: 02/21/17 Care time: The patient presented to the Emergency Department on the above date and was hospitalized for further evaluation of their emergent condition. - New Patient This patient is new to me today: Yes Date on this admission: 02/22/17 - Critical Care Critical Care patient: No - Discharge Referral Referred to [facility] No
[2017-02-22] MEDS ORDERED: TAMSULOSIN HCL 0.4 MG CAP.ER.24H (FP) PO ONE (14:15)
--- NOTE | 2017-02-22 15:40 | PN ---
Teaching Attending Note Name of Resident: Emi Fisher ATTENDING PHYSICIAN STATEMENT I saw and evaluated the patient. I reviewed the resident's note and discussed the case with the resident. I agree with the resident's findings and plan as documented. SUBJECTIVE: no fever or chills, no abd pain , denies any N/V now . s/p removal of NG tube and he tolerated clears. abd pain resolved OBJECTIVE: NAD , AAox3 Lungs : CTAb Abd : morbidly obese, NT, NL BS . Ext : chronic discolored skin changes on lower legs . Green discharge from posterior lower legs . no increased warmth . ASSESSMENT AND PLAN: 41 y/o MAn withh/o HTN, HLP, Dm, chronic wounds on LE , and lymphedema who presented with severe abd pain , N/V , and urinary retention 1- Abd pain /N/V : KUB with no signs of obstruction . probably his pain was due to urinary retention and bladder distention, now resolved. possible UTI due to pyuria , but also possible nephrolithiasis with his significant hematuria . - s/p removal of NGT. advance diet to soft - follow urine cx - cont oconnell for now , and do voidal trials tomorrow - will get US of kidneys , and bladder although , it might be of limited benefit 2- DM : takes mixed insulin and exenetide and metformin at home . -hold metformin - cont SSI - add levemir this evening 3- infected LE wounds ; past cultures of wounds showed MRSa , eneterococcas Feacalis and strep - cont vanco - He is allergic to zosyn ( rash in Er with zosyn ) . started on levaquin and flagyl. will appreciate ID recs 4- HTN : will repeat renal function and resume lisinopril dc IVF as started diet 5- DVT pX
--- NOTE | 2017-02-22 17:17 | CONSULT ---
Consult Consult Specialty:: infectious diseases Reason for Consultation:: bilateral cellulitis of the legs,int obstruction - History of Present Illness History of Present Illness: 41 year old male with a past medical history of HTN, DM, bilateral leg wounds and lymphedema was admitted initially wiht increased blood sugars since patient has not been taking insulin . hospital course included abd pain and urinary issues. patient was evaluated by surgery and ng tube was placed which was then removed and foleys was placed patient currently feeling much better and has had flatus patient has chronic issues with the legs left leg worse than right and has greenish discharge with foul smell - History Source History Provided By: Patient Limitations to Obtaining History: No Limitations - Smoking History Smoking history: Never smoked Have you smoked in the past 12 months: No Home Medications - Allergies Allergies/Adverse Reactions: Allergies Allergy/AdvReac Type Severity Reaction Status Date / Time Penicillins Allergy Verified 02/21/17 23:40 piperacillin sodium Allergy Verified 02/22/17 03:52 [From Zosyn] tazobactam sodium Allergy Verified 02/22/17 03:52 [From Zosyn] - Home Medications Home Medications: Ambulatory Orders Atorvastatin Ca [Lipitor] 10 mg PO DAILY 11/16/16 Exenatide Microspheres [Bydureon Pen] 2 mg SQ WEEKLY 11/16/16 Insulin Lispro Protamin/Lispro [Humalog Mix 75-25 Kwikpen] 8 unit SQ TID Lisinopril 5 mg PO DAILY 11/16/16 Metformin HCl [Metformin HCl ER] 2 tab PO DAILY 11/16/16 Lasix 20 mg PO DAILY 12/13/16 Family Disease History - Family Disease History Other Family History: no relevant Review of Systems - Review of Systems Constitutional: reports: No Symptoms Eyes: reports: No Symptoms HENT: reports: No Symptoms Neck: reports: No Symptoms Cardiovascular: reports: No Symptoms Respiratory: reports: No Symptoms Gastrointestinal: reports: No Symptoms Musculoskeletal: reports: Extremity Pain, Muscle Pain Integumentary: reports: Erythema, Wound, Other Neurological: reports: No Symptoms Endocrine: reports: No Symptoms Hematology/Lymphatic: reports: No Symptoms Psychiatric: reports: No Symptoms Physical Exam Vital Signs: Vital Signs Temperature 98 F 02/22/17 16:42 Pulse Rate 90 02/22/17 16:42 Respiratory Rate 18 02/22/17 16:42 Blood Pressure 109/66 02/22/17 16:42 O2 Sat by Pulse Oximetry (%) 94 L 02/22/17 09:00 Constitutional: Yes: Calm, Obese (morbidly obese) Eyes: Yes: Conjunctiva Clear HENT: Yes: Atraumatic Neck: Yes: Supple Cardiovascular: Yes: Regular Rate and Rhythm Respiratory: Yes: Regular, Poor Air Entry, Other Gastrointestinal: Yes: Normal Bowel Sounds, Soft Renal/: Yes: [place] Present Musculoskeletal: Yes: Other Extremities: Yes: Other (patient has chr lymph edema of both legs alsobilateral wounds on both legs left worse than right,draianing greenish discharge) Edema: LLE: 1+, RLE: 1+ Integumentary: Yes: Erythema, Skin Tear, Other Wound/Incision: Yes: Clean/Dry, Dressing Removed, Other (mild draiange) Neurological: Yes: Alert, Oriented Psychiatric: Yes: Alert, Oriented Labs: CBC, BMP 02/22/17 06:30 02/22/17 15:25 Imaging - Results X-ray: Report Reviewed, Image Reviewed Assessment/Plan sunny List - Problems (1) Acute urinary retention Code(s): R33.8 - OTHER RETENTION OF URINE (2) Lymphedema Code(s): I89.0 - LYMPHEDEMA, NOT ELSEWHERE CLASSIFIED (3) Partial obstruction of small intestine Code(s): K56.69 - OTHER INTESTINAL OBSTRUCTION (4) Uncontrolled diabetes mellitus Code(s): E11.65 - TYPE 2 DIABETES MELLITUS WITH HYPERGLYCEMIA Qualifiers: Diabetes mellitus type: due to underlying condition Diabetes mellitus complication status: with unspecified complications morbid obesity bilateral wound of the legs patient was started on levo and flagyl patient started on vanco plan continue current mgmt wound care rest as per surgery physio if possible continue abx
[2017-02-22] MEDS: METRONIDAZOLE 500 MG PREMIXED 100 ML IVPB SCH (17:49)
[2017-02-22] MEDS ORDERED: ATORVASTATIN CA 10 MG TABLET (FP) PO SCH (22:00)
[2017-02-22] MEDS ORDERED: INSULIN DETEMIR 100 UNITS/ML MDV SQ SCH (22:00)
[2017-02-23] MEDS: METRONIDAZOLE 500 MG PREMIXED 100 ML IVPB SCH ×2 (01:04→10:02)
[2017-02-23] MEDS: INSULIN SLIDING SCALE (NOVOLOG) 1 VIAL SQ SCH ×2 (06:20→11:38)
[2017-02-23] MEDS: HEPARIN NA (PORCINE) 5,000 UNITS/ML 1ML VIAL SQ SCH ×2 (06:20→13:29)
[2017-02-23 07:27] LABS: MCH 28.3 pg (25.7-33.7); MCHC 32.9 g/dl (32.0-35.9); MEAN PLT VOLUME 8.4 fl (7.5-11.1); PLATELET COUNT 216 K/MM3 (134-434); RDW 14.7 % (11.9-15.9); WHITE BLOOD COUNT 11.4 K/mm3 (4.0-10.0)
[2017-02-23 07:56] LABS: CALCIUM 8.8 mg/dL (8.5-10.1); MAGNESIUM 2.1 mg/dL (1.8-2.4)
[2017-02-23 07:58] LABS: CREATININE 0.9 mg/dL (0.7-1.3)
[2017-02-23] MEDS ORDERED: LISINOPRIL 5 MG TABLET (FP) PO SCH (10:00)
[2017-02-23] MEDS: PANTOPRAZOLE SODIUM 40 MG/100 ML PRE-DOCKED IVPB SCH (10:02)
[2017-02-23] MEDS: LEVOFLOXACIN 750 MG IVPB 150 ML IVPB SCH (10:04)
[2017-02-23] MEDS: NYSTATIN POWDER 100,000 UNITS/GM - 15 GM TOPICAL POWDER TP SCH (10:06)
[2017-02-23] MEDS: VANCOMYCIN 1,250 MG in DEXTROSE 5%-WATER - 250 ML IVPB SCH (11:38)
--- NOTE | 2017-02-23 13:09 | PN ---
Progress Note, Physician History of Present Illness: patient doing well no new issues says he is doing well leg drainage better - Current Medication List Current Medications: Active Medications Atorvastatin Calcium (Lipitor -) 10 mg PO HS [facility] Last Admin: 02/22/17 21:33 Dose: 10 mg Heparin Sodium (Porcine) (Heparin -) 5,000 unit SQ TID [facility] Last Admin: 02/23/17 06:20 Dose: 5,000 unit Levofloxacin (Levaquin 750 Mg Premixed Ivpb -) 150 mls @ 100 mls/hr IVPB DAILY [facility] Last Admin: 02/23/17 10:04 Dose: 100 mls/hr Vancomycin HCl 1,250 mg/ (Dextrose) 250 mls @ 166.667 mls/hr IVPB DAILY [facility] PRN Reason: Protocol Last Admin: 02/23/17 11:38 Dose: 166.667 mls/hr Metronidazole (Flagyl 500mg Premixed Ivpb -) 100 mls @ 100 mls/hr IVPB Q8H-IV [facility] Last Admin: 02/23/17 10:02 Dose: 100 mls/hr Insulin Aspart (Novolog Vial Sliding Scale -) 1 vial SQ ACHS [facility] PRN Reason: Protocol Last Admin: 02/23/17 11:38 Dose: 4 units Insulin Detemir (Levemir Vial) 20 units SQ [facility] Lisinopril (Prinivil) 5 mg PO DAILY [facility] Last Admin: 02/23/17 10:06 Dose: 5 mg Nystatin (Nystop Powder -) 1 applic TP DAILY [facility] Last Admin: 02/23/17 10:06 Dose: 1 applic Ondansetron HCl (Zofran Injection) 8 mg IVPB Q6H PRN PRN Reason: NAUSEA Pantoprazole Sodium (Protonix 40mg Ivpb (Pre-Docked)) 40 mg IVPB BID [facility] Last Admin: 02/23/17 10:02 Dose: 40 mg - Objective Vital Signs: Vital Signs Temperature 97.6 F 02/23/17 10:09 Pulse Rate 80 02/23/17 10:09 Respiratory Rate 20 02/23/17 10:09 Blood Pressure 111/61 02/23/17 10:09 O2 Sat by Pulse Oximetry (%) 94 L 02/23/17 09:56 Constitutional: Yes: No Distress, Calm, Obese (morbid obesity) Cardiovascular: Yes: Regular Rate and Rhythm Respiratory: Yes: Regular, CTA Bilaterally Gastrointestinal: Yes: Normal Bowel Sounds, Soft Musculoskeletal: Yes: WNL Extremities: Yes: Other (left leg draiange resolving) Integumentary: Yes: Venous Stasis Changes Wound/Incision: Yes: Dressing Dry and Intact Neurological: Yes: Alert, Oriented Psychiatric: Yes: Alert Labs: CBC, BMP 02/23/17 06:05 02/23/17 06:05 INR, PTT INR 1.17 (0.82-1.09) H 02/22/17 06:30 Assessment/Plan [facility] List - Problems (1) Acute urinary retention Code(s): R33.8 - OTHER RETENTION OF URINE (2) Lymphedema Code(s): I89.0 - LYMPHEDEMA, NOT ELSEWHERE CLASSIFIED (3) Partial obstruction of small intestine Code(s): K56.69 - OTHER INTESTINAL OBSTRUCTION (4) Uncontrolled diabetes mellitus Code(s): E11.65 - TYPE 2 DIABETES MELLITUS WITH HYPERGLYCEMIA Qualifiers: Diabetes mellitus type: due to underlying condition Diabetes mellitus complication status: with unspecified complications morbid obesity bilateral wound of the legs patient was started on levo and flagyl patient started on vanco plan continue current mgmt wound care rest as per surgery physio if possible continue abx
[2017-02-23 13:35] VITALS: BP 113/66; PULSE 74; TEMP 98.1
--- NOTE | 2017-02-23 13:54 | PN ---
Physical Exam: SUBJECTIVE: Patient seen and examined Patient resting in bed NAD. afebrilke hemodynamically stable. tolerating soft diet w/o n/v. no abd pain. + NB nonmelenous BM today. oconnell removed, + void 600 cc. denies f/c, chest pain, sob. OBJECTIVE: Vital Signs Period Temp Pulse Resp BP Sys/Eric Pulse Ox Last 24 Hr 97.6 F-98.1 F 68-99 18-22 103-131/60-66 94-95 GENERAL: The patient is awake, alert, and fully oriented, in no acute distress. HEAD: Normal with no signs of trauma. EYES: PERRL, extraocular movements intact, sclera anicteric, conjunctiva clear. No ptosis. ENT: moist mucous membranes. NECK: supple. LUNGS: restricted air movement, distal breath sounds. HEART: Regular rate and rhythm, S1, S2 ABDOMEN: obese, Soft, nontender, nondistended, normoactive bowel sounds, no guarding, no rebound, no hepatosplenomegaly, no masses. Lower EXTREMITIES: 1+ pulses, warm, well-perfused, b/l 3+ edema, chronic lumphadenopathy, reddish discoloration, posterior b/l calf ulcers, minimal foul smelling green discharge, pink granulation tissue. No apparent cellulitis. less drainage NEUROLOGICAL: Cranial nerves II through XII grossly intact. Normal speech, gait not observed. PSYCH: Normal mood, normal affect. SKIN: Warm, dry, lesions as above Laboratory Results - last 24 hr 02/22/17 02/22/17 02/22/17 00:00 06:30 15:25 WBC RBC Hgb Hct MCV MCHC RDW Plt Count MPV Sodium 140 Potassium 4.0 Chloride 101 Carbon Dioxide 28 Anion Gap 11 BUN 13 Creatinine 1.0 POC Glucometer Random Glucose 283 H Hemoglobin A1c % 9.8 H Calcium 9.0 Phosphorus Magnesium TSH 0.69 02/22/17 02/22/17 02/23/17 17:51 21:04 06:05 WBC 11.4 H D RBC 4.44 Hgb 12.6 Hct 38.2 MCV 86.0 MCHC 32.9 RDW 14.7 Plt Count 216 MPV 8.4 Sodium Potassium Chloride Carbon Dioxide Anion Gap BUN Creatinine POC Glucometer 234 287 Random Glucose Hemoglobin A1c % Calcium Phosphorus Magnesium TSH 0302/23/17 02/23/17 06:05 06:05 11:37 WBC RBC Hgb Hct MCV MCHC RDW Plt Count MPV Sodium 140 Potassium 3.7 Chloride 102 Carbon Dioxide 29 Anion Gap 9 BUN 14 Creatinine 0.9 POC Glucometer 219 224 Random Glucose 206 H D Hemoglobin A1c % Calcium 8.8 Phosphorus 4.0 Magnesium 2.1 TSH Active Medications Generic Name Dose Route Start Last Admin Trade Name Freq PRN Reason Stop Dose Admin Atorvastatin Calcium 10 mg 02/22/17 22:00 02/22/17 21:33 Lipitor - PO 10 mg HS NANCY Administration Heparin Sodium (Porcine) 5,000 unit 02/22/17 06:00 02/23/17 13:29 Heparin - SQ 5,000 unit TID NANCY Administration Levofloxacin 150 mls @ 100 mls/hr 02/22/17 06:00 02/23/17 10:04 Levaquin 750 Mg Premixed Ivpb - IVPB 100 mls/hr DAILY NANCY Administration Vancomycin HCl 1,250 mg/ 250 mls @ 166.667 mls/hr 02/22/17 10:00 02/23/17 11:38 Dextrose IVPB 166.667 mls/hr DAILY NANCY Administration Protocol Metronidazole 100 mls @ 100 mls/hr 02/22/17 18:00 02/23/17 10:02 Flagyl 500mg Premixed Ivpb - IVPB 100 mls/hr Q8H-IV NANCY Administration Insulin Aspart 1 vial 02/22/17 07:00 02/23/17 11:38 Novolog Vial Sliding Scale - SQ 4 units ACHS NANCY Administration Protocol Insulin Detemir 20 units 02/23/17 22:00 Levemir Vial SQ HS NANCY Lisinopril 5 mg 02/23/17 10:00 02/23/17 10:06 Prinivil PO 5 mg DAILY NANCY Administration Nystatin 1 applic 02/22/17 10:00 02/23/17 10:06 Nystop Powder - TP 1 applic DAILY NANCY Administration Ondansetron HCl 8 mg 02/22/17 00:05 Zofran Injection IVPB Q6H PRN NAUSEA Pantoprazole Sodium 40 mg 02/22/17 10:00 02/23/17 10:02 Protonix 40mg Ivpb (Pre-Docked) IVPB 40 mg BID NANCY Administration ASSESSMENT/PLAN: Patient is a 41 year old male with significant past medical history of Hypertension, HLD, Diabetes Mellitus, Lymphedema, B/L leg wound, ankle sprain, Nephrolithiasis presented with the chief complaints of severe abdominal pain and urinary retention. Urinary retention r/o UTI r/o renal stone obstruction, -accompanied by n/v (resolved) -abd xray no evident of bowel obstruction -no history bowel surgery -Tiffanie consult appreciated, sign off -history of renal stones -admission UA hematuria, 18 wbc -Oconnell removed, prior to removal diuresed over 4L -Renal US wnl -Ideally pelvic CT but unable due to obesity -s/p 1 dose flomax -f/u urology outpatient B/L leg wound -chronic x 2 yrs -chronic lymphedema -regular wound care visits -posterior calf wounds, minimal foul smelling green discharge, now lessened -wound care consult appreciated, wounds at baseline, no acute infection -f/u in wound care outpatient -daily dressing changes -contine MRSA and Pseudominas coverage (Van, levaquin, flagyl: zosyn allergy) until ID evaluates -ID counsult appreciated. can switch to PO ampicillin + levaquin tomorrow for 13 days. -hold lasix Morbid obesity -Discussed weight loss strategy. -Big Machine Consultant consult placed Uncontrolled IDDM2 -Last HbA1c- 16 -repeat -Insulin sliding scale -will likely require basal coverage HTN -lisinopril 5mg HLD -Lipitor on hold -Lipid panel wnl Fungal Infection -groin area -Nystatin powder FEN No ivf lytes stable soft diabetic diet PPX: For DVT- On Heparin 5000 IU sq For GI- IV Pantoprazole 40mg BID Dispo: Med-Surg Problem List - Problems (1) Acute urinary retention Code(s): R33.8 - OTHER RETENTION OF URINE (2) Bilateral lower leg cellulitis Code(s): L03.116 - CELLULITIS OF LEFT LOWER LIMB L03.115 - CELLULITIS OF RIGHT LOWER LIMB (3) Lymphedema Code(s): I89.0 - LYMPHEDEMA, NOT ELSEWHERE CLASSIFIED (4) Uncontrolled diabetes mellitus Code(s): E11.65 - TYPE 2 DIABETES MELLITUS WITH HYPERGLYCEMIA Qualifiers: Diabetes mellitus type: due to underlying condition Diabetes mellitus complication status: with unspecified complications Visit type - Emergency Visit Emergency Visit: Yes ED Registration Date: 02/21/17 Care time: The patient presented to the Emergency Department on the above date and was hospitalized for further evaluation of their emergent condition. - New Patient This patient is new to me today: No - Critical Care Critical Care patient: No - Discharge Referral Referred to [facility] No
--- NOTE | 2017-02-23 14:39 | PN ---
Teaching Attending Note Name of Resident: Emi Fisher ATTENDING PHYSICIAN STATEMENT I saw and evaluated the patient. I reviewed the resident's note and discussed the case with the resident. I agree with the resident's findings and plan as documented. SUBJECTIVE: no abd pain . no fever or chills. OBJECTIVE: NAD, AAOx3. Lungs: CTAB Abd : morbidly obese, NT, NL BS . Ext : chronic discolored skin changes on lower legs . Green discharge from posterior lower legs. no increased warmth . ASSESSMENT AND PLAN: 41 y/o Man with h/o HTN, HLP, Dm, chronic wounds on LE , and lymphedema who presented with severe abd pain , N/V , and urinary retention 1- Abd pain /N/V : probably his pain was due to urinary retention and bladder distention, now resolved. urine cx is neg . US not remarkable - dc oconnell 2- DM : takes mixed insulin( humalog 75-25) , exenetide and metformin at home . -hold metformin - cont SSI -increase levemir to 20 units 3- Infected LE wounds ; past cultures of wounds showed MRSa , eneterococcas Feacalis and strep . Now with proteus - cont vanco , levaquin and flagyl . will switch to po tomorrow 4- HTN : will repeat renal function and resume lisinopril 5- DVT pX
--- NOTE | 2017-02-23 15:30 | DS ---
Physical Exam: SUBJECTIVE: Patient seen and examined OBJECTIVE: Vital Signs Period Temp Pulse Resp BP Sys/Eric Pulse Ox Last 24 Hr 97.6 F-98.1 F 68-91 18-22 103-131/60-66 94-96 PHYSICAL EXAM GENERAL: The patient is awake, alert, and fully oriented, in no acute distress. HEAD: Normal with no signs of trauma. EYES: PERRL, extraocular movements intact, sclera anicteric, conjunctiva clear. ENT: Ears normal, nares patent, oropharynx clear without exudates, moist mucous membranes. NECK: Trachea midline, full range of motion, supple. LUNGS: Breath sounds equal, clear to auscultation bilaterally, no wheezes, no crackles, no accessory muscle use. HEART: Regular rate and rhythm, S1, S2 without murmur, rub or gallop. ABDOMEN: Soft, nontender, nondistended, normoactive bowel sounds, no guarding, no rebound, no hepatosplenomegaly, no masses. EXTREMITIES: 2+ pulses, warm, well-perfused, no edema. NEUROLOGICAL: Cranial nerves II through XII grossly intact. Normal speech, gait not observed. PSYCH: Normal mood, normal affect. SKIN: Warm, dry, normal turgor, no rashes or lesions noted. LABS Laboratory Results - last 24 hr 02/22/17 02/22/17 02/22/17 00:00 15:25 17:51 WBC RBC Hgb Hct MCV MCHC RDW Plt Count MPV Sodium 140 Potassium 4.0 Chloride 101 Carbon Dioxide 28 Anion Gap 11 BUN 13 Creatinine 1.0 POC Glucometer 234 Random Glucose 283 H Hemoglobin A1c % 9.8 H Calcium 9.0 Phosphorus Magnesium 02/22/17 02/23/17 02/23/17 21:04 06:05 06:05 WBC 11.4 H D RBC 4.44 Hgb 12.6 Hct 38.2 MCV 86.0 MCHC 32.9 RDW 14.7 Plt Count 216 MPV 8.4 Sodium 140 Potassium 3.7 Chloride 102 Carbon Dioxide 29 Anion Gap 9 BUN 14 Creatinine 0.9 POC Glucometer 287 Random Glucose 206 H D Hemoglobin A1c % Calcium 8.8 Phosphorus 4.0 Magnesium 2.1 02/23/17 02/23/17 06:05 11:37 WBC RBC Hgb Hct MCV MCHC RDW Plt Count MPV Sodium Potassium Chloride Carbon Dioxide Anion Gap BUN Creatinine POC Glucometer 219 224 Random Glucose Hemoglobin A1c % Calcium Phosphorus Magnesium HOSPITAL COURSE: Date of Admission:02/21/17 Date of Discharge: 02/23/17 Discharge Summary Reason For Visit: LYMPHEDEMA, BILATERAL LOWER LEG CELLULIT Current Active Problems Acute urinary retention (Acute) Bilateral lower leg cellulitis (Acute) Lymphedema (Acute) Partial obstruction of small intestine (Acute) Uncontrolled diabetes mellitus (Acute) Condition: Good - Instructions Diet, Activity, Other Instructions: You were in the hospital for abdominal pain and urinary retention Because we were unable to get an abdominal CT, we are not completely sure of the cause of your issues. It way have been due to a kidney stone, urinary tract infection or bowel obstruction. Even though your symptoms resolved, please follow up with a primary doctor to do a CT scan of your abdomen. You also had an infection of your chronic leg ulcers. You were treated with IV antibiotics but could not finish course due to emergent need to leave hospital. please take ampicillin (4 times a day) and levaquin (once a day) for 14 days. Follow up in wound care [place] You have poorly controlled diabetes. resume your home medication and follow up with asp net developer Dr Quintana to adjust dosage. Return to hospital if symptoms worsen Referrals: Wilfredo Oropeza MD [Staff Physician] - 1 Week Shirlene Quintana MD [Staff Physician] - 2 Weeks Yasir Flannery MD [Staff Physician] - 1 Week Disposition: HOME - Home Medications Comprehensive Discharge Medication List: Ambulatory Orders Atorvastatin Ca [Lipitor] 10 mg PO DAILY 11/16/16 Exenatide Microspheres [Bydureon Pen] 2 mg SQ WEEKLY 11/16/16 Insulin Lispro Protamin/Lispro [Humalog Mix 75-25 Kwikpen] 20 unit SQ BID Lisinopril 5 mg PO DAILY 11/16/16 Metformin HCl [Metformin HCl ER] 2 tab PO DAILY 11/16/16 Lasix 20 mg PO DAILY 12/13/16 Ampicillin Trihydrate [Ampicillin Trihydrate Capsule] 500 mg PO QID #56 cap Levofloxacin [Levaquin] 750 mg PO DAILY #14 tab 02/23/17 Problem List - Problems (1) Acute urinary retention Code(s): R33.8 - OTHER RETENTION OF URINE (2) Bilateral lower leg cellulitis Code(s): L03.116 - CELLULITIS OF LEFT LOWER LIMB L03.115 - CELLULITIS OF RIGHT LOWER LIMB (3) Lymphedema Code(s): I89.0 - LYMPHEDEMA, NOT ELSEWHERE CLASSIFIED (4) Uncontrolled diabetes mellitus Code(s): E11.65 - TYPE 2 DIABETES MELLITUS WITH HYPERGLYCEMIA Qualifiers: Diabetes mellitus type: due to underlying condition Diabetes mellitus complication status: with unspecified complications - Discharge Referral Referred to [facility] Med P.C.: No
--- NOTE | 2017-02-23 15:37 | DS ---
Physical Exam: SUBJECTIVE: Patient seen and examined Patient resting in bed NAD. afebrilke hemodynamically stable. tolerating soft diet w/o n/v. no abd pain. + NB nonmelenous BM today. oconnell removed, + void 600 cc. denies f/c, chest pain, sob. OBJECTIVE: Vital Signs Period Temp Pulse Resp BP Sys/Eric Pulse Ox Last 24 Hr 97.6 F-98.1 F 68-91 18-22 103-131/60-66 94-96 PHYSICAL EXAM GENERAL: The patient is awake, alert, and fully oriented, in no acute distress. HEAD: Normal with no signs of trauma. EYES: PERRL, extraocular movements intact, sclera anicteric, conjunctiva clear. No ptosis. ENT: moist mucous membranes. NECK: supple. LUNGS: restricted air movement, distal breath sounds. HEART: Regular rate and rhythm, S1, S2 ABDOMEN: obese, Soft, nontender, nondistended, normoactive bowel sounds, no guarding, no rebound, no hepatosplenomegaly, no masses. Lower EXTREMITIES: 1+ pulses, warm, well-perfused, b/l 3+ edema, chronic lumphadenopathy, reddish discoloration, posterior b/l calf ulcers, minimal foul smelling green discharge, pink granulation tissue. No apparent cellulitis. less drainage NEUROLOGICAL: Cranial nerves II through XII grossly intact. Normal speech, gait not observed. PSYCH: Normal mood, normal affect. SKIN: Warm, dry, lesions as above LABS Laboratory Results - last 24 hr 02/22/17 02/22/17 02/22/17 00:00 15:25 17:51 WBC RBC Hgb Hct MCV MCHC RDW Plt Count MPV Sodium 140 Potassium 4.0 Chloride 101 Carbon Dioxide 28 Anion Gap 11 BUN 13 Creatinine 1.0 POC Glucometer 234 Random Glucose 283 H Hemoglobin A1c % 9.8 H Calcium 9.0 Phosphorus Magnesium 02/22/17 02/23/17 02/23/17 21:04 06:05 06:05 WBC 11.4 H D RBC 4.44 Hgb 12.6 Hct 38.2 MCV 86.0 MCHC 32.9 RDW 14.7 Plt Count 216 MPV 8.4 Sodium 140 Potassium 3.7 Chloride 102 Carbon Dioxide 29 Anion Gap 9 BUN 14 Creatinine 0.9 POC Glucometer 287 Random Glucose 206 H D Hemoglobin A1c % Calcium 8.8 Phosphorus 4.0 Magnesium 2.1 02/23/17 02/23/17 06:05 11:37 WBC RBC Hgb Hct MCV MCHC RDW Plt Count MPV Sodium Potassium Chloride Carbon Dioxide Anion Gap BUN Creatinine POC Glucometer 219 224 Random Glucose Hemoglobin A1c % Calcium Phosphorus Magnesium HOSPITAL COURSE: Date of Admission:02/21/17 Patient is a 41 year old male with significant past medical history of Hypertension, HLD, Diabetes Mellitus, Lymphedema, B/L leg wound, ankle sprain, Nephrolithiasis presented with the chief complaints of severe abdominal pain and urinary retention. The day before admission he experienced abdominal discomfort after lunch, then a normal solid BM and then NBNB nonprojective vomiting x6 after dinner. He developed diffuse pelvic/abd pain. He also noticed urinary retention despite being on lasix and hydrating. He has chronic b/l LE lymphedema cared for in wound clinic at [facility] but has missed last 2 apt. His wounds have been oozing green foul smelling fluid. He has not had f/c. He was assessed by hospitalist, Surgery, ID and Wound care. He was found to have Urinary retention due to either renal stone obstruction or bowel obstruction. He was treated with NGT and oconnell. NGT was removed on hosp day 1 and oconnell was removed on hosp day 2. Abd X ray and renal US was unremarkable. Patient was unable to receive CT due to weight limitation. He tolerated regular diet, had several normal BM and voided adequate amount of urine. He was treated with IV abx (vanco, levaquin and flagyl) for 2 days but had to leave hospital one day early due to family emergency. He was sent home on PO doxycycline and levaquin for 14 days. His DM is poorly managed with his current home meds and he required adjustment, likely increased in HS basal insulin. He was found to be allergic to zosyn (hives) He requires f/u with wound care, endocrinology and PCP. Date of Discharge: 02/23/17 Minutes to complete discharge: 30 (na) Discharge Summary Reason For Visit: LYMPHEDEMA, BILATERAL LOWER LEG CELLULIT Current Active Problems Acute urinary retention (Acute) Bilateral lower leg cellulitis (Acute) Lymphedema (Acute) Partial obstruction of small intestine (Acute) Uncontrolled diabetes mellitus (Acute) Condition: Good - Instructions Diet, Activity, Other Instructions: You were in the hospital for abdominal pain and urinary retention Because we were unable to get an abdominal CT, we are not completely sure of the cause of your issues. It way have been due to a kidney stone or bowel obstruction. Even though your symptoms resolved, please follow up with a primary doctor to do a CT scan of your abdomen. You also had an infection of your chronic leg ulcers. You were treated with IV antibiotics but could not finish course due to emergent need to leave hospital. please take doxicyclin (2 times a day) and levaquin (once a day) for 14 days. Follow up in wound care [place] You have poorly controlled diabetes. resume your home medication and follow up with installation superintendent Dr Quintana to adjust dosage. Return to hospital if symptoms worsen Referrals: Yasir Flannery MD [Staff Physician] - 1 Week Wilfredo Oropeza MD [Staff Physician] - 1 Week Shirlene Quintana MD [Staff Physician] - 2 Weeks Disposition: HOME - Home Medications Comprehensive Discharge Medication List: Ambulatory Orders Atorvastatin Ca [Lipitor] 10 mg PO DAILY 11/16/16 Exenatide Microspheres [Bydureon Pen] 2 mg SQ WEEKLY 11/16/16 Insulin Lispro Protamin/Lispro [Humalog Mix 75-25 Kwikpen] 20 unit SQ BID Lisinopril 5 mg PO DAILY 11/16/16 Metformin HCl [Metformin HCl ER] 2 tab PO DAILY 11/16/16 Lasix 20 mg PO DAILY 12/13/16 Doxycycline Hyclate [Vibramycin -] 100 mg PO BID #14 cap 02/23/17 Levofloxacin [Levaquin] 750 mg PO DAILY #14 tab 02/23/17 Problem List - Problems (1) Acute urinary retention Code(s): R33.8 - OTHER RETENTION OF URINE (2) Bilateral lower leg cellulitis Code(s): L03.116 - CELLULITIS OF LEFT LOWER LIMB L03.115 - CELLULITIS OF RIGHT LOWER LIMB (3) Lymphedema Code(s): I89.0 - LYMPHEDEMA, NOT ELSEWHERE CLASSIFIED (4) Uncontrolled diabetes mellitus Code(s): E11.65 - TYPE 2 DIABETES MELLITUS WITH HYPERGLYCEMIA Qualifiers: Diabetes mellitus type: due to underlying condition Diabetes mellitus complication status: with unspecified complications This patient is new to me today: Yes Date on this admission: 02/23/17 Emergency Visit: No Critical Care patient: No - Discharge Referral Referred to [facility] Med P.C.: No
[2017-02-23] MEDS ORDERED: INSULIN DETEMIR 100 UNITS/ML MDV SQ SCH (22:00)
--- NOTE | 2017-02-25 16:23 | HOSP ---
Subjective - Review of Symptoms Events since last encounter: Called patient to inform about ESBL in wound culture urged him to come to ED for IV abx, explained the dangers of leaving infection untreated or inadequately treated. He said he will come back tomorrow Physical Examination Vital Signs: Vital Signs Temperature 98.1 F 02/23/17 13:34 Pulse Rate 74 02/23/17 13:34 Respiratory Rate 19 02/23/17 13:34 Blood Pressure 113/66 02/23/17 13:34 O2 Sat by Pulse Oximetry (%) 94 L 02/23/17 09:56 Labs: CBC, BMP 02/23/17 06:05 02/23/17 06:05 Visit type - Emergency Visit Emergency Visit: No - New Patient This patient is new to me today: No - Critical Care Critical Care patient: No
== END 2017-02-23 16:22 | disposition home or self-care (01) | DRG 468 ==
LOC: JER 17:59 → JERBED 23:10 → J4S 02-22 02:24
PROVIDERS: ADMIT Internal Medicine; ATTEND Internal Medicine
DX: R33.8 Other retention of urine (principal); E11.65 Type 2 diabetes mellitus with hyperglycemia; E66.01 Morbid (severe) obesity due to excess calories; Z68.44 Body mass index [BMI] 60.0-69.9, adult; L03.116 Cellulitis of left lower limb; L03.115 Cellulitis of right lower limb; N32.89 Other specified disorders of bladder; I89.0 Lymphedema, not elsewhere classified; I10 Essential (primary) hypertension; B35.6 Tinea cruris; E78.5 Hyperlipidemia, unspecified; Z79.4 Long term (current) use of insulin; Z88.0 Allergy status to penicillin
CPT/HCPCS: 36415; 74020-TC; 76775-TC; 80048; 80053; 80061; 81003; 81015; 82009; 82803; 83036; 83605; 83690; 83721; 83735; 84100; 84443; 85025; 85027; 85610; 85730; 87040; 87070; 87086; 87186; 87205; 93005; 93010; 99285-25; J1644

== ENCOUNTER 2017-02-25 19:42 | Inpatient (IN) | payer OTHER ==
--- NOTE | 2017-02-25 21:37 | PDOC ---
History of Present Illness - General Chief Complaint: Wound Infection Stated Complaint: PCP ADMIT Time Seen by Provider: 02/25/17 21:00 History Source: Patient Exam Limitations: No Limitations - History of Present Illness Initial Comments: CHIEF COMPLAINT: 41 y/o afebrile male with PMH HTN, HLD, DM, b/l LE wounds here for IV abx for his wound infection. HISTORY OF PRESENT ILLNESS: THe patient signed out AMA from ICU 3 days ago due to family emergency(admitted for bowel/bladder obstruction). He was called by the resident today and instructed his left leg wound culture came back positive and would require IV antibiotics. The resident instructed him to come back for admission. He denies f/c, n/v/d, CP, SOB, abd pain. Vital signs on arrival are notable for pulse of 118. REVIEW OF SYSTEMS: GENERAL/CONSTITUTIONAL: No fever/chills. No weakness. No weight change. HEAD, EYES, EARS, NOSE AND THROAT: No change in vision. No ear pain or discharge. No sore throat. CARDIOVASCULAR: No chest pain or shortness of breath. RESPIRATORY: No cough, wheezing, or hemoptysis. GASTROINTESTINAL: No abd pain, nausea, vomiting, diarrhea. GENITOURINARY: No dysuria, frequency, or change in urination. MUSCULOSKELETAL: +lower extremity swelling with green discharge from left. No neck or back pain. SKIN: No rash or easy bruising. NEUROLOGIC: No headache, vertigo, loss of consciousness, or loss of sensation. PHYSICAL EXAM: GENERAL: The patient is awake, alert, and fully oriented, in no acute distress. He is morbidly obese. HEAD: Normal with no signs of trauma. ENT: Pupils equal, round and reactive to light, extraocular movements intact, sclera anicteric, conjunctiva clear. Neck supple. LUNGS: Clear to auscultation bilaterally. Normal excursion. No respiratory distress or use of accessory muscles. CV: RRR, S1/S2, no MRG. Cap refill < 2 sec. ABDOMEN: Soft, non-distended, non-tender even to deep palpation, no hepatomegaly or splenomegaly, no masses. EXTREMITIES: 2+ pitting edema. Left lower leg wound covered with bandage. No erythema or streaking. NEUROLOGICAL: Normal speech, normal gait. CN II-XII grossly intact. PSYCH: Normal mood, normal affect. SKIN: Warm, dry, normal turgor, no rashes or lesions noted. Past History - Past Medical History Allergies/Adverse Reactions: Allergies Allergy/AdvReac Type Severity Reaction Status Date / Time Penicillins Allergy Verified 02/25/17 19:49 piperacillin sodium Allergy Verified 02/25/17 19:49 [From Zosyn] tazobactam sodium Allergy Verified 02/25/17 19:49 [From Zosyn] Home Medications: Ambulatory Orders Atorvastatin Ca [Lipitor] 10 mg PO DAILY 11/16/16 Exenatide Microspheres [Bydureon Pen] 2 mg SQ WEEKLY 11/16/16 Insulin Lispro Protamin/Lispro [Humalog Mix 75-25 Kwikpen] 20 unit SQ BID Lisinopril 5 mg PO DAILY 11/16/16 Metformin HCl [Metformin HCl ER] 2 tab PO DAILY 11/16/16 Lasix 20 mg PO DAILY 12/13/16 Doxycycline Hyclate [Vibramycin -] 100 mg PO BID #28 cap 02/23/17 Levofloxacin [Levaquin -] 500 mg PO DAILY #14 tablet 02/23/17 Diabetes: Yes GI Disorders: No HTN: Yes Hypercholesterolemia: Yes - Psycho/Social/Smoking Cessation Hx Suicidal Ideation: No Smoking History: Never smoked Have you smoked in the past 12 months: No *Physical Exam - Vital Signs Last Vital Signs Temp Pulse Resp BP Pulse Ox 98.4 F 118 H 20 120/94 98 02/25/17 19:52 02/25/17 19:52 02/25/17 19:52 02/25/17 19:52 02/25/17 19:52 Medical Decision Making - Medical Decision Making A/P: 41 y/o male here for admission for antibiotics for left lower leg infection. Plan is as follows: 1. Labs Spoke with Dr. Burns and she accepts admission to med/surg. She does not want abx until labs are drawn. *DC/Admit/Observation/Transfer Diagnosis at time of Disposition: Lymphedema, Bilateral lower leg cellulitis, Leg wound, left - Discharge Dispostion Condition at time of disposition: Stable Admit: Yes
--- NOTE | 2017-02-25 22:18 | PN ---
<KatyGilbertame - Last Filed: 02/25/17 22:17> Teaching Attending Note Name of Resident: Mansoor Hirsch ATTENDING PHYSICIAN STATEMENT I saw and evaluated the patient. I reviewed the resident's note and discussed the case with the resident. I agree with the resident's findings and plan as documented. SUBJECTIVE: OBJECTIVE: ASSESSMENT AND PLAN: <MarianaSantiago - Last Filed: 02/25/17 23:20> Teaching Attending Note ATTENDING PHYSICIAN STATEMENT I saw and evaluated the patient. I reviewed the resident's note and discussed the case with the resident. I agree with the resident's findings and plan as documented. SUBJECTIVE: The patient is a 41 year old male with a past medical history of HTN, HLD, DM, bilateral lower extremity wounds and nephrolithiasis here for IV antibiotics for his wound infection. The patient was discharged from ICU 3 days ago ( admitted for abdominal pain and sepsis). Now is called back for ESBL proteus in wound. OBJECTIVE: Vital Signs: Last Vital Signs Temp Pulse Resp BP Pulse Ox 98.4 F 118 H 20 120/94 98 02/25/17 19:52 02/25/17 19:52 02/25/17 19:52 02/25/17 19:52 02/25/17 19:52 Physical Exam: GEN: (+) Morbidly obese male HEENT: NCAT, PERRL CARD: RRR, S1 S2 RESP: CTAB ABD: NT, BWS x4 EXT: - (+) Bilateral lower extremity edema with mild discharge from bilateral legs and mild surrounding erythema Labs: CBCD WBC 11.0 K/mm3 (4.0-10.0) H 02/25/17 22:15 RBC 4.55 M/mm3 (4.00-5.60) 02/25/17 22:15 Hgb 12.8 GM/dL (11.7-16.9) 02/25/17 22:15 Hct 38.8 % (35.4-49) 02/25/17 22:15 MCV 85.3 fl (80-96) 02/25/17 22:15 MCHC 33.1 g/dl (32.0-35.9) 02/25/17 22:15 RDW 14.3 % (11.9-15.9) 02/25/17 22:15 Plt Count 243 K/MM3 (134-434) 02/25/17 22:15 MPV 8.3 fl (7.5-11.1) 02/25/17 22:15 CMP Sodium Cancelled 02/25/17 22:15 Potassium Cancelled 02/25/17 22:15 Chloride Cancelled 02/25/17 22:15 Carbon Dioxide Cancelled 02/25/17 22:15 Anion Gap Cancelled 02/25/17 22:15 BUN Cancelled 02/25/17 22:15 Creatinine Cancelled 02/25/17 22:15 Creat Clearance w eGFR Cancelled 02/25/17 22:15 Calcium Cancelled 02/25/17 22:15 Total Bilirubin Cancelled 02/25/17 22:15 AST Cancelled 02/25/17 22:15 ALT Cancelled 02/25/17 22:15 Alkaline Phosphatase Cancelled 02/25/17 22:15 Total Protein Cancelled 02/25/17 22:15 Albumin Cancelled 02/25/17 22:15 ASSESSMENT AND PLAN: The patient is a 41 year old male with a past medical history of HTN, HLD, DM, bilateral lower extremity wounds here for IV antibiotics for his wound infection. Now with ESBL producing proteus in wound. 1. Wound infection- proteus sensitive to Levaquin -Contitune levaquin IV -Wound care consult 2. Diabetes -Finger stick Q4H -Insulin sliding scale 3. HTN -Continue home meds 4. HLD -Continue home meds 5. DVT PPX -Heparin 5000 units Q8H Admit to med surg. Documentation prepared by Santiago Peña, acting as medical secretary receptionist for Dr. Logan Burns MD.
[2017-02-25 22:31] LABS: BASOPHIL 1.2 % (0-2.0); EOSINOPHIL 1.7 % (0-4.5); MCH 28.2 pg (25.7-33.7); MCHC 33.1 g/dl (32.0-35.9); MEAN CELL VOLUME 85.3 fl (80-96); MEAN PLT VOLUME 8.3 fl (7.5-11.1); NEUTROPHILS 58.4 % (42.8-82.8); PLATELET COUNT 243 K/MM3 (134-434); RDW 14.3 % (11.9-15.9)
--- NOTE | 2017-02-25 23:21 | HP ---
CHIEF COMPLAINT: positive wound culture PCP: no pcp HISTORY OF PRESENT ILLNESS: 41 y/o M with PMH of morbid obesity, HTN, HLD, DM, b/l LE lymphedema presents to the ER after being called back due to positive wound cultures from LE which grew ESBL proteus mirabilus. Pt was recently discharged from [facility] on 02/23/17, earlier than intended because pt had to leave for family emergency. At that time he came in for abd pain, nausea, vomiting, urinary retention. At this time he has none of these symptoms and feels close to baseline. He was discharged with prescriptions for doxy and levaquin which he only started taking yesterday. He states his LLE leg wound is about the same as when he was discharged and has not worsened. He denies any N/V/F/C, diarrhea, constipation, dysuria, difficulty urinating, CP, palpitations, SOB, abd pain, headache, or pain in the legs. Pt would not like to see same ID doctor as he did on last admission. ER course was notable for: (1) (2) (3) PAST MEDICAL HISTORY: morbid obesity, HTN, HLD, DM, b/l LE lymphedema PAST SURGICAL HISTORY: none Social History: Smoking: denies Alcohol: denies Drugs: denies Family History: mother: bone ca, htn, liver cirrhosis Allergies Penicillins Allergy (Verified 02/25/17 19:49) piperacillin sodium [From Zosyn] Allergy (Verified 02/25/17 19:49) tazobactam sodium [From Zosyn] Allergy (Verified 02/25/17 19:49) HOME MEDICATIONS: Home Medications Medication Instructions Recorded Atorvastatin Ca [Lipitor] 10 mg PO DAILY 11/16/16 Exenatide Microspheres [Bydureon 2 mg SQ WEEKLY 11/16/16 Pen] Insulin Lispro Protamin/Lispro 20 unit SQ BID 11/16/16 [Humalog Mix 75-25 Kwikpen] Lisinopril 5 mg PO DAILY 11/16/16 Metformin HCl [Metformin HCl ER] 2 tab PO DAILY 11/16/16 Lasix 20 mg PO DAILY 12/13/16 Doxycycline Hyclate [Vibramycin -] 100 mg PO BID #28 cap 02/23/17 Levofloxacin [Levaquin -] 500 mg PO DAILY #14 tablet 02/23/17 REVIEW OF SYSTEMS CONSTITUTIONAL: Absent: fever, chills, diaphoresis, generalized weakness, malaise, loss of appetite, weight change HEENT: Absent: rhinorrhea, nasal congestion, throat pain, throat swelling, difficulty swallowing, mouth swelling, ear pain, eye pain, visual changes CARDIOVASCULAR: Absent: chest pain, syncope, palpitations, irregular heart rate, lightheadedness , peripheral edema RESPIRATORY: Absent: cough, shortness of breath, dyspnea with exertion, orthopnea, wheezing, stridor, hemoptysis GASTROINTESTINAL: Absent: abdominal pain, abdominal distension, nausea, vomiting, diarrhea, constipation, melena, hematochezia GENITOURINARY: Absent: dysuria, frequency, urgency, hesitancy, hematuria, flank pain, genital pain MUSCULOSKELETAL: Absent: myalgia, arthralgia, joint swelling, back pain, neck pain SKIN: Absent: rash, itching, pallor HEMATOLOGIC/IMMUNOLOGIC: Absent: easy bleeding, easy bruising, lymphadenopathy, frequent infections ENDOCRINE: Absent: unexplained weight gain, unexplained weight loss, heat intolerance, cold intolerance NEUROLOGIC: Absent: headache, focal weakness or paresthesias, dizziness, unsteady gait, seizure, mental status changes, bladder or bowel incontinence PSYCHIATRIC: Absent: anxiety, depression, suicidal or homicidal ideation, hallucinations. PHYSICAL EXAMINATION Vital Signs - 24 hr 02/25/17 19:52 Temperature 98.4 F Pulse Rate 118 H Respiratory 20 Rate Blood Pressure 120/94 O2 Sat by Pulse 98 Oximetry (%) GENERAL: Awake, alert, and fully oriented, in no acute distress. Morbidly obese. HEAD: Normal with no signs of trauma. EYES: extraocular movements intact, sclera anicteric, conjunctiva clear. No lid lag. EARS, NOSE, THROAT: Ears normal, nares patent, Moist mucous membranes. NECK: Normal range of motion, supple without lymphadenopathy, JVD, or masses. LUNGS: Breath sounds equal, clear to auscultation bilaterally. No wheezes, and no crackles. No accessory muscle use. HEART: Regular rate and rhythm, normal S1 and S2 without murmur, rub or gallop. ABDOMEN: Soft, obese, mild L sided tenderness, not distended, normoactive bowel sounds, no guarding, no rebound, no masses. No hepatomegaly or splenomegaly. LOWER EXTREMITIES: warm, well-perfused. B/L lymphedema, LLE covered in yellow ointment, foul smelling, no active drainage seen, crusted skin.. NEUROLOGICAL: Cranial nerves II-XII intact. Normal speech.Gait not observed. PSYCHIATRIC: Cooperative. Good eye contact. Appropriate mood and affect. SKIN: Warm, dry, normal turgor, no rashes or lesions noted, normal capillary refill. Laboratory Results - last 24 hr 02/25/17 02/25/17 02/25/17 22:15 22:15 22:15 WBC 11.0 H RBC 4.55 Hgb 12.8 Hct 38.8 MCV 85.3 MCHC 33.1 RDW 14.3 Plt Count 243 MPV 8.3 Neutrophils % 58.4 D Lymphocytes % 28.9 D Monocytes % 9.8 D Eosinophils % 1.7 D Basophils % 1.2 D Sodium Cancelled Potassium Cancelled Chloride Cancelled Carbon Dioxide Cancelled Anion Gap Cancelled BUN Cancelled Creatinine Cancelled Creat Clearance w eGFR Cancelled Random Glucose Cancelled Lactic Acid 1.149 Calcium Cancelled Total Bilirubin Cancelled AST Cancelled ALT Cancelled Alkaline Phosphatase Cancelled Total Protein Cancelled Albumin Cancelled ASSESSMENT/PLAN: 41 y/o M with PMH of morbid obesity, HTN, HLD, DM, b/l LE lymphedema presents to the ER after being called back due to positive wound cultures from LE which grew ESBL proteus mirabilus. -Positive LE wound culture -Grew: ESBL Proteus mirabilus, pt was called back today -IV meropenem -ID Consult, Pt did not want to see Dr. Dupree who he saw last time. -wound care -Morbid obesity -weight loss -Uncontrolled DM -A1C on last admission 9.8 -BGMs, ISS -HTN -controlled -c/w Lisinopril 5 mg po qd -HLD -c/w atorvastatin 10 mg po qd -DVT ppx -Hep sq -FEN -no fluids -monitor lytes -sodium/diabetic diet -Dispo: -Admit to M/S Problem List - Problem (1) Bilateral lower leg cellulitis Code(s): L03.116 - CELLULITIS OF LEFT LOWER LIMB L03.115 - CELLULITIS OF RIGHT LOWER LIMB (2) Leg wound, left Code(s): S81.802A - UNSPECIFIED OPEN WOUND, LEFT LOWER LEG, INITIAL ENCOUNTER (3) Lymphedema Code(s): I89.0 - LYMPHEDEMA, NOT ELSEWHERE CLASSIFIED (4) Uncontrolled diabetes mellitus Code(s): E11.65 - TYPE 2 DIABETES MELLITUS WITH HYPERGLYCEMIA Qualifiers: Diabetes mellitus type: due to underlying condition Diabetes mellitus complication status: with unspecified complications (5) HTN (hypertension) Code(s): I10 - ESSENTIAL (PRIMARY) HYPERTENSION (6) HLD (hyperlipidemia) Code(s): E78.5 - HYPERLIPIDEMIA, UNSPECIFIED Visit type - Emergency Visit Emergency Visit: Yes ED Registration Date: 02/25/17 Care time: The patient presented to the Emergency Department on the above date and was hospitalized for further evaluation of their emergent condition. - New Patient This patient is new to me today: Yes Date on this admission: 02/26/17 - Critical Care Critical Care patient: No
[2017-02-26 01:17] LABS: ALBUMIN 3.1 g/dl (3.4-5.0); ANION GAP 10 (8-16); BILIRUBIN,TOTAL 0.6 mg/dL (0.2-1.0); CALCIUM 9.2 mg/dL (8.5-10.1); CO2 29 mmol/L (21-32); CREATININE 0.8 mg/dL (0.7-1.3); GLUCOSE,RANDOM 167 mg/dL (74-106); SGPT/ALT 32 U/L (12-78)
[2017-02-26 01:18] LABS: ALK PHOS 62 U/L (45-117); TOT PROT 6.6 g/dl (6.4-8.2)
[2017-02-26 01:21] LABS: SGOT/AST 32 U/L (15-37)
[2017-02-26] MEDS ORDERED: MEROPENEM 500 MG VIAL (RESTRICTED TO ID) IVPB ONE (07:40)
[2017-02-26 08:25] LABS: EOSINOPHIL 2.4 % (0-4.5); MCH 28.3 pg (25.7-33.7); MCHC 32.8 g/dl (32.0-35.9); MEAN CELL VOLUME 86.2 fl (80-96); MEAN PLT VOLUME 8.2 fl (7.5-11.1); NEUTROPHILS 52.9 % (42.8-82.8); PLATELET COUNT 219 K/MM3 (134-434); RDW 14.5 % (11.9-15.9); WHITE BLOOD COUNT 7.6 K/mm3 (4.0-10.0)
[2017-02-26] MEDS ORDERED: DEXTROSE 5% IVPB ONE (08:30)
[2017-02-26] MEDS ORDERED: MEROPENEM IVPB ONE (08:30)
[2017-02-26] MEDS ORDERED: WATER IVPB ONE (08:30)
[2017-02-26] MEDS ORDERED: MEROPENEM 500 MG in DEXTROSE 5%-WATER - 100 ML IVPB ONE (08:33)
[2017-02-26 09:21] LABS: ALBUMIN 3.3 g/dl (3.4-5.0); ALK PHOS 67 U/L (45-117); ANION GAP 9 (8-16); BILIRUBIN,TOTAL 0.5 mg/dL (0.2-1.0); CALCIUM 9.3 mg/dL (8.5-10.1); CO2 28 mmol/L (21-32); CREATININE 0.8 mg/dL (0.7-1.3); GLUCOSE,RANDOM 208 mg/dL (74-106); SGOT/AST 34 U/L (15-37); SGPT/ALT 40 U/L (12-78); TOT PROT 6.8 g/dl (6.4-8.2)
[2017-02-26] MEDS: ATORVASTATIN CA 10 MG TABLET (FP) PO SCH (10:52)
[2017-02-26] MEDS: LISINOPRIL 5 MG TABLET (FP) PO SCH (10:52)
[2017-02-26] MEDS: INSULIN SLIDING SCALE (NOVOLOG) 1 VIAL SQ SCH ×2 (11:48→17:31)
[2017-02-26] MEDS ORDERED: INSULIN (NOVOLOG) ASPART 100 UNITS/ML 10ML VIAL ONE (11:50)
--- NOTE | 2017-02-26 12:59 | PN ---
Physical Exam: SUBJECTIVE: Patient seen and examined Patient resting in bed NAD. Afebrile and hemodynamically stable. Feels well. Was asked to return to hospital fo IV abx for wound culture ESBL. Denies leg pain, excessive drainage, more difficulty walking than baseline, n/v, abd pain or urinary retention. Has been having BM and urinating w/o issue. OBJECTIVE: Vital Signs Period Temp Pulse Resp BP Sys/Eric Pulse Ox Last 24 Hr 97.4 F-98.4 F 80-92 16-18 115-124/65-70 94-99 GENERAL: The patient is awake, alert, and fully oriented, in no acute distress. HEAD: Normal with no signs of trauma. EYES: PERRL, extraocular movements intact, sclera anicteric, conjunctiva clear. No ptosis. ENT: moist mucous membranes. NECK: supple. LUNGS: restricted air movement, distal breath sounds. HEART: Regular rate and rhythm, S1, S2 ABDOMEN: obese, Soft, nontender, nondistended, normoactive bowel sounds, no guarding, no rebound, no hepatosplenomegaly, no masses. Lower EXTREMITIES: 1+ pulses, warm, well-perfused, b/l 3+ edema, chronic lumphadenopathy, reddish discoloration, posterior b/l calf ulcers, minimal foul smelling green discharge, pink granulation tissue. No apparent cellulitis NEUROLOGICAL: Cranial nerves II through XII grossly intact. Normal speech, gait not observed. PSYCH: Normal mood, normal affect. SKIN: Warm, dry, lesions as above Laboratory Results - last 24 hr 02/25/17 02/25/17 02/25/17 22:15 22:15 22:15 WBC 11.0 H Corrected WBC (auto) RBC 4.55 Hgb 12.8 Hct 38.8 MCV 85.3 MCHC 33.1 RDW 14.3 Plt Count 243 MPV 8.3 Add Manual Diff Neutrophils % 58.4 D Lymphocytes % 28.9 D Monocytes % 9.8 D Eosinophils % 1.7 D Basophils % 1.2 D Differential Comment Smudge Cells Platelet Estimate Platelet Comment Normal RBC Morphology RBC Morphology Sodium Cancelled Potassium Cancelled Chloride Cancelled Carbon Dioxide Cancelled Anion Gap Cancelled BUN Cancelled Creatinine Cancelled Creat Clearance w eGFR Cancelled POC Glucometer Random Glucose Cancelled Lactic Acid 1.149 Calcium Cancelled Total Bilirubin Cancelled AST Cancelled ALT Cancelled Alkaline Phosphatase Cancelled Total Protein Cancelled Albumin Cancelled 02/26/17 02/26/17 02/26/17 00:01 06:30 06:30 WBC Cancelled Corrected WBC (auto) Cancelled RBC Cancelled Hgb Cancelled Hct Cancelled MCV Cancelled MCHC Cancelled RDW Cancelled Plt Count Cancelled MPV Cancelled Add Manual Diff Cancelled Neutrophils % Cancelled Lymphocytes % Cancelled Monocytes % Cancelled Eosinophils % Cancelled Basophils % Cancelled Differential Comment Cancelled Smudge Cells Cancelled Platelet Estimate Cancelled Platelet Comment Cancelled Normal RBC Morphology Cancelled RBC Morphology Cancelled Sodium 139 Cancelled Potassium 4.4 Cancelled Chloride 100 Cancelled Carbon Dioxide 29 Cancelled Anion Gap 10 Cancelled BUN 12 Cancelled Creatinine 0.8 Cancelled Creat Clearance w eGFR > 60 POC Glucometer Random Glucose 167 H Cancelled Lactic Acid Calcium 9.2 Cancelled Total Bilirubin 0.6 AST 32 D ALT 32 D Alkaline Phosphatase 62 Total Protein 6.6 Albumin 3.1 L 02/26/17 02/26/17 02/26/17 07:57 09:00 11:46 WBC 7.6 D Corrected WBC (auto) RBC 4.71 Hgb 13.3 Hct 40.6 MCV 86.2 MCHC 32.8 RDW 14.5 Plt Count 219 MPV 8.2 Add Manual Diff Neutrophils % 52.9 Lymphocytes % 31.6 Monocytes % 12.1 H Eosinophils % 2.4 Basophils % 1.0 Differential Comment Smudge Cells Platelet Estimate Platelet Comment Normal RBC Morphology RBC Morphology Sodium 138 Potassium 4.3 Chloride 101 Carbon Dioxide 28 Anion Gap 9 BUN 12 Creatinine 0.8 Creat Clearance w eGFR > 60 POC Glucometer 304.05239 Random Glucose 208 H D Lactic Acid Calcium 9.3 Total Bilirubin 0.5 AST 34 ALT 40 D Alkaline Phosphatase 67 Total Protein 6.8 Albumin 3.3 L Active Medications Generic Name Dose Route Start Last Admin Trade Name Freq PRN Reason Stop Dose Admin Atorvastatin Calcium 10 mg 02/26/17 10:00 02/26/17 10:52 Lipitor - PO 10 mg DAILY [facility] Administration Heparin Sodium (Porcine) 5,000 unit 02/26/17 14:00 Heparin - SQ TID [facility] Insulin Aspart 1 vial 02/26/17 11:00 02/26/17 11:48 Novolog Vial Sliding Scale - SQ 8 unit TIDAC [facility] Administration Protocol Insulin Detemir 20 units 02/26/17 22:00 Levemir Vial SQ HS [facility] Lisinopril 5 mg 02/26/17 10:00 02/26/17 10:52 Prinivil PO 5 mg DAILY [facility] Administration ASSESSMENT/PLAN: Patient is a 41 year old male with significant past medical history of Hypertension, HLD, Diabetes Mellitus, Lymphedema, B/L leg wound, ankle sprain, Nephrolithiasis, who presented for IV abx because his LE wound cultures grew ESBL proteus mirabilus. B/L calf wounds -chronic x 2 yrs -chronic lymphedema -possibly worsened infection during last admission, left early due to family emergency before culture came back -Cultuer ESBL+ -Wounds appear improved from last admission, do not appear acutely infected. -wound care -daily dressing changes -Meropenem IV -ID counsult -continue lasix -f/u in wound care outpatient Morbid obesity Uncontrolled IDDM2 -Last HbA1c 9.8 -Insulin sliding scale -Levemir 20 HS -BGM HTN -Lisinopril 5mg HLD -atorvastatin 10 FEN No ivf lytes stable diabetic diet PPX: For DVT- On Heparin 5000 IU sq Dispo: Med-Surg Problem List - Problems (1) HLD (hyperlipidemia) Code(s): E78.5 - HYPERLIPIDEMIA, UNSPECIFIED (2) HTN (hypertension) Code(s): I10 - ESSENTIAL (PRIMARY) HYPERTENSION (3) Leg wound, left Code(s): S81.802A - UNSPECIFIED OPEN WOUND, LEFT LOWER LEG, INITIAL ENCOUNTER (4) Leg wound, right Code(s): S81.801A - UNSPECIFIED OPEN WOUND, RIGHT LOWER LEG, INITIAL ENCOUNTER (5) ESBL (extended spectrum beta-lactamase) producing bacteria infection Code(s): A49.9 - BACTERIAL INFECTION, UNSPECIFIED Z16.12 - EXTENDED SPECTRUM BETA LACTAMASE (ESBL) RESISTANCE Visit type - Emergency Visit Emergency Visit: Yes ED Registration Date: 02/25/17 Care time: The patient presented to the Emergency Department on the above date and was hospitalized for further evaluation of their emergent condition. - New Patient This patient is new to me today: No - Critical Care Critical Care patient: No - Discharge Referral Referred to [facility] Med P.C.: No
[2017-02-26 14:08] VITALS: BMI 65.8
[2017-02-26] MEDS ORDERED: HEPARIN NA (PORCINE) 5,000 UNITS/ML 1ML VIAL ONE (14:11)
[2017-02-26] MEDS ORDERED: FUROSEMIDE 40 MG TABLET (FP) ONE (14:11)
--- NOTE | 2017-02-26 14:16 | PN ---
Teaching Attending Note Name of Resident: Emi Fisher ATTENDING PHYSICIAN STATEMENT I saw and evaluated the patient. I reviewed the resident's note and discussed the case with the resident. I agree with the resident's findings and plan as documented. SUBJECTIVE: no fever or chills, feels his legs are better. no cp ro SOB . OBJECTIVE: NAD CV: RRR Lungs : CTAB Ext : chronic changes, thick skin, . posterior legs with pink skin, with yellowish material seen ( he places yellow cream on his legs ) no increased warmth ASSESSMENT AND PLAN: 41 y/o male with h/o HTN, IDDM, Lymphedema , LE wounds, and recent admission for urinary retention , and lE infection who presented after being called due to wound cx growing ESBL 1- B/l infected lower extremities wounds : cx few days ago with ESBL producing E coli, Strep B and coag Neg . - Gave one dose of meropenem pending ID consultation - Clean dressing on wounds 2- HTN: cont lisinopril 3- DM : don't carry mixed insulin here - place on levemir 20 units HS - SSI dispo : HLOC
[2017-02-26] MEDS: HEPARIN NA (PORCINE) 5,000 UNITS/ML 1ML VIAL SQ SCH ×2 (14:39→22:45)
[2017-02-26] MEDS: FUROSEMIDE 20 MG TABLET (FP) PO SCH (14:39)
--- NOTE | 2017-02-26 16:50 | PN ---
Progress Note (short form) - Note Progress Note: Infected chronic venous stasis ulcers mixed pathogens incl ESBL Diabetes mellitus Morbid obesity Levaquin 750mg IVPB q24h Wound care evaluation
[2017-02-26] MEDS: LEVOFLOXACIN 750 MG IVPB 150 ML IVPB SCH (17:53)
[2017-02-26] MEDS ORDERED: INSULIN DETEMIR 100 UNITS/ML MDV SQ SCH (22:00)
[2017-02-27] MEDS: INSULIN SLIDING SCALE (NOVOLOG) 1 VIAL SQ SCH ×2 (06:29→11:20)
[2017-02-27] MEDS: HEPARIN NA (PORCINE) 5,000 UNITS/ML 1ML VIAL SQ SCH (06:29)
[2017-02-27 07:04] VITALS: TEMP 97.6
[2017-02-27 07:19] LABS: MCH 28.3 pg (25.7-33.7); MCHC 32.5 g/dl (32.0-35.9); MEAN CELL VOLUME 87.1 fl (80-96); MEAN PLT VOLUME 8.3 fl (7.5-11.1); PLATELET COUNT 226 K/MM3 (134-434); RDW 14.5 % (11.9-15.9); WHITE BLOOD COUNT 8.3 K/mm3 (4.0-10.0)
[2017-02-27 07:54] LABS: CALCIUM 9.6 mg/dL (8.5-10.1)
--- NOTE | 2017-02-27 08:08 | DS ---
Physical Exam: SUBJECTIVE: Patient seen and examined Patient resting in bed NAD. No acute events. afebrile and hemodynamically stable. does not complain of leg pain, f/c, n/v, chest pain, sob or abd pain. OBJECTIVE: Vital Signs Period Temp Pulse Resp BP Sys/Eric Pulse Ox Last 24 Hr 97.6 F-98.4 F 71-97 18-20 118-129/67-81 97-99 PHYSICAL EXAM GENERAL: The patient is awake, alert, and fully oriented, in no acute distress. HEAD: Normal with no signs of trauma. EYES: PERRL, extraocular movements intact, sclera anicteric, conjunctiva clear. No ptosis. ENT: moist mucous membranes. NECK: supple. LUNGS: restricted air movement, distal breath sounds. HEART: Regular rate and rhythm, S1, S2 ABDOMEN: obese, Soft, nontender, nondistended, normoactive bowel sounds, no guarding, no rebound, no hepatosplenomegaly, no masses. Lower EXTREMITIES: 1+ pulses, warm, well-perfused, b/l 3+ edema, chronic lumphadenopathy, reddish discoloration, posterior b/l calf ulcers, no discharge , pink granulation tissue. No apparent cellulitis NEUROLOGICAL: Cranial nerves II through XII grossly intact. Normal speech, gait not observed. PSYCH: Normal mood, normal affect. SKIN: Warm, dry, lesions as above LABS Laboratory Results - last 24 hr 02/26/17 02/26/17 02/26/17 07:57 09:00 11:46 WBC 7.6 D RBC 4.71 Hgb 13.3 Hct 40.6 MCV 86.2 MCHC 32.8 RDW 14.5 Plt Count 219 MPV 8.2 Neutrophils % 52.9 Lymphocytes % 31.6 Monocytes % 12.1 H Eosinophils % 2.4 Basophils % 1.0 Sodium 138 Potassium 4.3 Chloride 101 Carbon Dioxide 28 Anion Gap 9 BUN 12 Creatinine 0.8 Creat Clearance w eGFR > 60 POC Glucometer [phone] Random Glucose 208 H D Calcium 9.3 Total Bilirubin 0.5 AST 34 ALT 40 D Alkaline Phosphatase 67 Total Protein 6.8 Albumin 3.3 L 02/26/17 02/26/17 02/27/17 17:28 22:42 06:10 WBC 8.3 RBC 4.82 Hgb 13.6 Hct 42.0 MCV 87.1 MCHC 32.5 RDW 14.5 Plt Count 226 MPV 8.3 Neutrophils % Lymphocytes % Monocytes % Eosinophils % Basophils % Sodium Potassium Chloride Carbon Dioxide Anion Gap BUN Creatinine Creat Clearance w eGFR POC Glucometer 137 175 Random Glucose Calcium Total Bilirubin AST ALT Alkaline Phosphatase Total Protein Albumin 02/27/17 06:27 WBC RBC Hgb Hct MCV MCHC RDW Plt Count MPV Neutrophils % Lymphocytes % Monocytes % Eosinophils % Basophils % Sodium Potassium Chloride Carbon Dioxide Anion Gap BUN Creatinine Creat Clearance w eGFR POC Glucometer 225 Random Glucose Calcium Total Bilirubin AST ALT Alkaline Phosphatase Total Protein Albumin HOSPITAL COURSE: Date of Admission:02/25/17 Patient is a 41 year old male with significant past medical history of Hypertension, HLD, Diabetes Mellitus, Lymphedema, B/L leg wound, ankle sprain, Nephrolithiasis, who presented for IV abx because his LE wound cultures grew ESBL proteus mirabilus. Pt was recently discharged from [facility] on 02/23/17, earlier than intended because pt had to leave for family emergency. His LLE leg wounds are about the same as when he was discharged and has not worsened. He denies any N/V/F/C, diarrhea, constipation, dysuria, difficulty urinating, CP , palpitations, SOB, abd pain, headache, or pain in the legs. He was given IV dose of Meropenem, then evaluated by ID. Culture sensitivities showed that his organism was susceptible to Levaquin. His legs were stable w/o abscess or cellulitis and he was sent home on PO abx with wound care f/u. Date of Discharge: 02/27/17 Minutes to complete discharge: 30 (na) Discharge Summary Reason For Visit: LEG WOUND,LEFT Current Active Problems Bilateral lower leg cellulitis (Acute) ESBL (extended spectrum beta-lactamase) producing bacteria infection (Acute) HLD (hyperlipidemia) (Acute) HTN (hypertension) (Acute) Leg wound, left (Acute) Leg wound, right (Acute) Lymphedema (Acute) Condition: Good - Instructions Diet, Activity, Other Instructions: You were admitted for an additional dose of IV antibiotic for your wound infection (ESBL bacteria) Your legs are in an improved condition, Please take antibiotic Levaqin 750 mg daily for 9 more days follow up with primary care in 1 week. return to hospital if symptoms worsen. Referrals: Wilfredo Oropeza MD [Staff Physician] - 1 Week Yasir Flannery MD [Staff Physician] - 1 Week Disposition: HOME - Home Medications Comprehensive Discharge Medication List: Ambulatory Orders Atorvastatin Ca [Lipitor] 10 mg PO DAILY 11/16/16 Exenatide Microspheres [Bydureon Pen] 2 mg SQ WEEKLY 11/16/16 Insulin Lispro Protamin/Lispro [Humalog Mix 75-25 Kwikpen] 20 unit SQ BID Lisinopril 5 mg PO DAILY 11/16/16 Metformin HCl [Metformin HCl ER] 2 tab PO DAILY 11/16/16 Lasix 20 mg PO DAILY 12/13/16 Levofloxacin 750 mg Ivpb [Levaquin 750 mg Premixed Ivpb -] 150 ml IVPB DAILY #9 bag 02/27/17 Problem List - Problems (1) HLD (hyperlipidemia) Code(s): E78.5 - HYPERLIPIDEMIA, UNSPECIFIED (2) HTN (hypertension) Code(s): I10 - ESSENTIAL (PRIMARY) HYPERTENSION (3) Leg wound, left Code(s): S81.802A - UNSPECIFIED OPEN WOUND, LEFT LOWER LEG, INITIAL ENCOUNTER (4) Leg wound, right Code(s): S81.801A - UNSPECIFIED OPEN WOUND, RIGHT LOWER LEG, INITIAL ENCOUNTER (5) ESBL (extended spectrum beta-lactamase) producing bacteria infection Code(s): A49.9 - BACTERIAL INFECTION, UNSPECIFIED Z16.12 - EXTENDED SPECTRUM BETA LACTAMASE (ESBL) RESISTANCE This patient is new to me today: No Emergency Visit: Yes ED Registration Date: 02/25/17 Care time: The patient presented to the Emergency Department on the above date and was hospitalized for further evaluation of their emergent condition. Critical Care patient: No - Discharge Referral Referred to [facility] Med P.C.: No
[2017-02-27 09:19] VITALS: BP 115/67; PULSE 83
[2017-02-27] MEDS: ATORVASTATIN CA 10 MG TABLET (FP) PO SCH (09:21)
[2017-02-27] MEDS: FUROSEMIDE 20 MG TABLET (FP) PO SCH (09:21)
[2017-02-27] MEDS: LISINOPRIL 5 MG TABLET (FP) PO SCH (09:21)
[2017-02-27] MEDS: LEVOFLOXACIN 750 MG IVPB 150 ML IVPB SCH (09:21)
--- NOTE | 2017-02-27 10:31 | CONS ---
DATE OF CONSULTATION: DATE OF DICTATION: 02/27/2016 HISTORY OF PRESENT ILLNESS: The patient is a 41-year-old morbidly obese male who is evaluated for positive wound culture. He was recently admitted to [facility] from February 21 through February 23 with abdominal pain and acute urinary retention. He was seen by surgery and felt to have acute urinary retention with secondary ileus. Patient has a history of chronic lymphedema and morbid obesity. A wound culture done on that admission grew mixed organisms including a Proteus ESBL as well as a group B streptococcus and coagulase negative staphylococcus. Patient reports history of chronic venous stasis dermatitis. He developed an ulceration recently after a traumatic injury. He has noted some purulent drainage and some foul odor. He denies any fever or chills. PAST MEDICAL HISTORY: Positive for morbid obesity, diabetes mellitus, chronic lower extremity lymphedema, hypertension, hyperlipidemia. ALLERGIES: To PENICILLIN. Patient had reported facial rash and swelling with PENICILLIN last admission. LABORATORY DATA: White count 7.6. Creatinine 0.8. PHYSICAL EXAMINATION: General: He is awake and alert. He is not acutely toxic-appearing. He is morbidly obese, in excess of 400 pounds. Vital signs: His temperature 98.2. HEENT: Sclerae anicteric. Heart: Heart sounds S1, S2. Lungs: Clear. Abdomen: Soft and nontender, massively obese. Extremities: Positive for lower extremity lymphedema. He has bilateral lower extremity chronic venous stasis dermatitis. A superficial ulceration is present on the posterior aspect of the left lower extremity. IMPRESSION: 1. Positive wound culture, mixed organisms including extended-spectrum beta-lactamase of uncertain significance, may represent colonization of chronic venous stasis ulcer. 2. Chronic venous stasis dermatitis and ulceration. 3. Morbid obesity. 4. Chronic lymphedema. Continue Levaquin. Will give 750 mg IV piggyback. May substitute p.o. Levaquin 750 mg daily, and follow up in the [facility]. Contact precautions for ESBL. Thank you for the kind referral. SID ZAMBRANO M.D. [facility]A/[id number]
--- NOTE | 2017-02-27 19:39 | PN ---
Teaching Attending Note Name of Resident: Emi Fisher ATTENDING PHYSICIAN STATEMENT I saw and evaluated the patient. I reviewed the resident's note and discussed the case with the resident. I agree with the resident's findings and plan as documented. Vital Signs Temperature 97.6 F 02/27/17 09:17 Pulse Rate 83 02/27/17 09:17 Respiratory Rate 18 02/27/17 09:17 Blood Pressure 115/67 02/27/17 09:17 O2 Sat by Pulse Oximetry (%) 96 02/27/17 09:00 CBCD WBC 8.3 K/mm3 (4.0-10.0) 02/27/17 06:10 RBC 4.82 M/mm3 (4.00-5.60) 02/27/17 06:10 Hgb 13.6 GM/dL (11.7-16.9) 02/27/17 06:10 Hct 42.0 % (35.4-49) 02/27/17 06:10 MCV 87.1 fl (80-96) 02/27/17 06:10 MCHC 32.5 g/dl (32.0-35.9) 02/27/17 06:10 RDW 14.5 % (11.9-15.9) 02/27/17 06:10 Plt Count 226 K/MM3 (134-434) 02/27/17 06:10 MPV 8.3 fl (7.5-11.1) 02/27/17 06:10 CMP Sodium 138 mmol/L (136-145) 02/27/17 06:10 Potassium 4.4 mmol/L (3.5-5.1) 02/27/17 06:10 Chloride 96 mmol/L (98-107) L 02/27/17 06:10 Carbon Dioxide 31 mmol/L (21-32) 02/27/17 06:10 Anion Gap 11 (8-16) 02/27/17 06:10 BUN 12 mg/dL (7-18) 02/27/17 06:10 Creatinine 1.0 mg/dL (0.7-1.3) D 02/27/17 06:10 Creat Clearance w eGFR > 60 (>60) 02/26/17 09:00 Random Glucose 215 mg/dL (74-106) H 02/27/17 06:10 Calcium 9.6 mg/dL (8.5-10.1) 02/27/17 06:10 Total Bilirubin 0.5 mg/dL (0.2-1.0) 02/26/17 09:00 AST 34 U/L (15-37) 02/26/17 09:00 ALT 40 U/L (12-78) D 02/26/17 09:00 Alkaline Phosphatase 67 U/L (45-117) 02/26/17 09:00 Total Protein 6.8 g/dl (6.4-8.2) 02/26/17 09:00 Albumin 3.3 g/dl (3.4-5.0) L 02/26/17 09:00 Home Medications Medication Instructions Recorded Atorvastatin Ca [Lipitor] 10 mg PO DAILY 11/16/16 Exenatide Microspheres [Bydureon 2 mg SQ WEEKLY 11/16/16 Pen] Insulin Lispro Protamin/Lispro 20 unit SQ BID 11/16/16 [Humalog Mix 75-25 Kwikpen] Lisinopril 5 mg PO DAILY 11/16/16 Metformin HCl [Metformin HCl ER] 2 tab PO DAILY 11/16/16 Lasix 20 mg PO DAILY 12/13/16 Levofloxacin [Levaquin] 750 mg PO DAILY #10 tab 02/27/17 ASSESSMENT AND PLAN: Patient is a 41 y/o male with h/o HTN, IDDM, Lymphedema , LE wounds, and recent admission for urinary retention , and lE infection who presented after being called back to the hospital due to wound cx growing ESBL # B/l infected lower extremities wounds : culture positive for ESBL producing E coli, Strep B and coag Neg .s/p one dose of meropenem. ID seen the patient and recommended Levaquin, patient was discharged on oral Levaquin 750mg daily for 10 days. # HTN: cont lisinopril # DM : continue home meds.
== END 2017-02-27 11:55 | disposition home or self-care (01) | DRG 383 ==
LOC: JER 19:42 → JERBED 22:03 → J7W 02-26 15:50
PROVIDERS: ADMIT Internal Medicine; ATTEND Internal Medicine
DX: L03.115 Cellulitis of right lower limb (principal); L03.116 Cellulitis of left lower limb; I10 Essential (primary) hypertension; I89.0 Lymphedema, not elsewhere classified; E78.5 Hyperlipidemia, unspecified; E11.622 Type 2 diabetes mellitus with other skin ulcer; E66.01 Morbid (severe) obesity due to excess calories; Z68.44 Body mass index [BMI] 60.0-69.9, adult; Z71.3 Dietary counseling and surveillance; I83.029 Varicose veins of left lower extremity with ulcer of unspecified site; L97.829 Non-pressure chronic ulcer of other part of left lower leg with unspecified severity; E11.65 Type 2 diabetes mellitus with hyperglycemia; A49.9 Bacterial infection, unspecified; Z16.12 Extended spectrum beta lactamase (ESBL) resistance; Z87.442 Personal history of urinary calculi; Z88.0 Allergy status to penicillin
CPT/HCPCS: 36415; 80048; 80053; 83605; 85025; 85027; 87040; 99285-25; J1644

== ENCOUNTER 2017-04-02 17:39 | Emergency (ER) | payer OTHER ==
[2017-04-02 18:32] VITALS: PULSE 93; TEMP 97.8; BMI 80.8
[2017-04-02] MEDS ORDERED: ONDANSETRON 4 MG/2 ML VIAL IVPB ONE (19:15)
[2017-04-02] MEDS ORDERED: SODIUM CHLORIDE 1,000 ML IV STA (19:15)
[2017-04-02] MEDS ORDERED: PANTOPRAZOLE SODIUM 40 MG in SODIUM CHLORIDE 100 ML IVPB ONE (19:15)
--- NOTE | 2017-04-02 19:17 | PDOC ---
History of Present Illness - General Chief Complaint: Respiratory Stated Complaint: SOB Time Seen by Provider: 04/02/17 18:51 History Source: Patient Exam Limitations: No Limitations - History of Present Illness Initial Comments: 04/02/17 19:21 42yo Male patient w/ PmHx: HTN, HLD, Morbid obesity w/ lymphedema (chronic), IDDM, Cellulitis, presents to ED c/o having "undiagnosed condition," vomiting, no appetite, bloating, gas, extreme pressure in abdomen which has been ongoing for past month. Patient states he has been admitted in the past for this same condition, stating no one knows whats wrong with me, and I am to [facility] for [facility]- Scan. However, patient reports, he has not seen a GI specialist. He states he has not eaten in several days, + Diarrhea. Denies CP, Back pain, diff breathing , fever, or any other complaints at this time. 22:09- Patient told provider that Nimesh Loyd was his PCP. After contacting Dr. Loyd; he stated that patient is not under his service. Patient then stated Dr. De Guzman was his PCP. After contacting Dr. De Guzman; he stated he had not seen patient in over a year, and patient was discharged from his practice do to non-compliance of medical care. Patient stated he saw Gab 1 1/2 weeks ago. Hospitalist contacted for admission. Timing/Duration: constant Severity: moderate Modifying Factors: worse with: cold therapy, eating, immobilization, medication , movement, rest, other Associated Symptoms: reports: loss of appetite, nausea/vomiting, shortness of breath. denies: denies symptoms, chest pain, cough, diaphoresis, fever/chills, headaches, malaise, rash, seizure, syncope, weakness, other Asa Contraindications(Core Measure): No: Allergy, Other, Active Blding w/i 24 hrs., Plavix, Receiving Warfarin Beta Parker Contraindications(Core Measure): No: Not Prescribed, Allergy, Bradycardia (HR <60bpm), Advanced Heart Block, Pacemaker, Other Past History - Travel Traveled outside of the country in the last 30 days: No Close contact w/someone who was outside of country & ill: No - Past Medical History Allergies/Adverse Reactions: Allergies Allergy/AdvReac Type Severity Reaction Status Date / Time Penicillins Allergy Verified 04/02/17 17:46 piperacillin sodium Allergy Verified 04/02/17 17:46 [From Zosyn] tazobactam sodium Allergy Verified 04/02/17 17:46 [From Zosyn] Home Medications: Ambulatory Orders Atorvastatin Ca [Lipitor] 10 mg PO DAILY 11/16/16 Insulin Lispro Protamin/Lispro [Humalog Mix 75-25 Kwikpen] 20 unit SQ BID Lisinopril 5 mg PO DAILY 11/16/16 Metformin HCl [Metformin HCl ER] 2 tab PO DAILY 11/16/16 Famotidine [Pepcid -] 40 mg PO BID #14 tablet 04/03/17 Ondansetron [Zofran Odt -] 4 mg SL Q6H PRN #30 od.tablet 04/03/17 Pantoprazole Sodium [Protonix -] 40 mg PO BID #14 tablet.ec 04/03/17 Diabetes: Yes GI Disorders: Yes (OBESITY.) HTN: Yes Hypercholesterolemia: Yes - Psycho/Social/Smoking Cessation Hx Anxiety: No Suicidal Ideation: No Smoking History: Never smoked Have you smoked in the past 12 months: No Hx Alcohol Use: No Drug/Substance Use Hx: No Substance Use Type: None Review of Systems - Review of Systems Able to Perform ROS?: Yes Is the patient limited [place] proficient: No Constitutional: Yes: Loss of Appetite. No: Chills, Fever Respiratory: Yes: Shortness of Breath. No: Cough, Stridor, Wheezing, Hemoptysis Cardiac (ROS): No: Chest Pain, Palpitations, Syncope, Chest Tightness ABD/GI: Yes: Diarrhea, Nausea, Poor Appetite, Poor Fluid Intake, Vomiting. No: Abd. Pain w/ defecation, Difficulty Swallowing, Rectal Bleeding, Abdominal cramping : No: Dysuria, Flank Pain Musculoskeletal: No: Back Pain Integumentary: Yes: Other (Lymphedema). No: Erythema, Rash, Sweating Neurological: No: Headache, Seizure, Ataxia, Dizziness All Other Systems: Reviewed and Negative *Physical Exam - Vital Signs Last Vital Signs Temp Pulse Resp BP Pulse Ox 97.8 F 93 H 22 131/77 98 04/02/17 17:45 04/02/17 17:45 04/02/17 17:45 04/02/17 17:45 04/02/17 17:45 - Physical Exam General Appearance: Yes: Appropriately Dressed, Obese (Morbid). No: Apparent Distress, Mild Distress, Moderate Distress, Severe Distress HEENT: positive: EOMI, CARRI, Normal ENT Inspection, Normal Voice, Symmetrical, TMs Normal, Pharynx Normal (Mild erythema. No exudates, sores, vesicles, bleeding.) Neck: positive: Trachea midline, Supple. negative: Stridor, Lymphadenopathy (R) , Lymphadenopathy (L) Respiratory/Chest: positive: Lungs Clear, Normal Breath Sounds. negative: Respiratory Distress, Accessory Muscle Use, Labored Respiration, Rapid RR, Wheezing Cardiovascular: positive: Regular Rhythm, Regular Rate Gastrointestinal/Abdominal: positive: Soft, Increased Bowel Sounds, Other ( Large Abdomen). negative: Distended, Guarding, Rebound, Tenderness Musculoskeletal: positive: Normal Inspection. negative: CVA Tenderness Extremity: positive: Normal Capillary Refill, Normal Inspection, Normal Range of Motion, Pedal Edema (Weeping), Swelling (BLE) Integumentary: positive: Normal Color, Warm, Moist, Swelling. negative: Erythema Neurologic: positive: fisher trap II-XII NML intact, Fully Oriented, Alert, Normal Mood/ Affect, Normal Response ED Treatment Course - LABORATORY CBC & Chemistry Diagram: 04/02/17 19:49 04/02/17 19:49 - RADIOLOGY Radiology Studies Ordered: Category Date Time Status CHEST X-RAY PORTABLE* [RAD] Stat Radiology 04/02/17 19:13 Ordered Medical Decision Making - Medical Decision Making 04/03/17 02:34 DISCUSSED CASE WITH ATTENDING. RECOMMENDED TO D/C PATIENT HOME WITH OUTPATIENT FOLLOW-UP. *DC/Admit/Observation/Transfer Diagnosis at time of Disposition: Hiccups, Bilateral lower leg cellulitis Nausea & vomiting Qualifiers: Vomiting type: unspecified Vomiting Intractability: non-intractable Qualified Code(s): R11.2 - Nausea with vomiting, unspecified - Discharge Dispostion Disposition: HOME Condition at time of disposition: Stable Admit: No - Prescriptions Prescriptions: Famotidine [Pepcid -] 40 mg PO BID #14 tablet Pantoprazole Sodium [Protonix -] 40 mg PO BID #14 tablet.ec Ondansetron [Zofran Odt -] 4 mg SL Q6H PRN #30 od.tablet PRN Reason: Nausea - Patient Instructions Printed Discharge Instructions: Nausea and Vomiting-Adult Additional Instructions: FOLLOW UP WITH YOUR PRIMARY CARE PROVIDER THIS WEEK FOR FURTHER EVALUATION. CALL DR. HUYNH (GASTEROENTEROLOGY) THIS WEEK FOR APPOINTMENT. TAKE MEDICATIONS PRESCRIBED. Print Language: ARGENTINE
[2017-04-02] MEDS ORDERED: ONDANSETRON 4 MG/2 ML VIAL ONE (19:26)
[2017-04-02] MEDS ORDERED: PANTOPRAZOLE SODIUM 100 ML IVPB ONE (19:26)
[2017-04-02 20:05] LABS: BASOPHIL 0.6 % (0-2.0); EOSINOPHIL 0.1 % (0-4.5); MCH 27.8 pg (25.7-33.7); MCHC 33.5 g/dl (32.0-35.9); MEAN PLT VOLUME 9.4 fl (7.5-11.1); NEUTROPHILS 74.6 % (42.8-82.8); RDW 14.7 % (11.9-15.9); WHITE BLOOD COUNT 11.2 K/mm3 (4.0-10.0)
[2017-04-02 20:08] LABS: PLATELET COUNT 134 K/MM3 (134-434)
[2017-04-02 20:46] LABS: ALBUMIN 2.5 g/dl (3.4-5.0); AMYLASE 21 U/L (25-115); ANION GAP 14 (8-16); CALCIUM 7.5 mg/dL (8.5-10.1); CO2 27 mmol/L (21-32); COCKROFT - GAULT 125.19; GLUCOSE,RANDOM 130 mg/dL (74-106); SGOT/AST 35 U/L (15-37); SGPT/ALT 27 U/L (12-78)
[2017-04-02 20:50] LABS: ALK PHOS 55 U/L (45-117); BILIRUBIN,TOTAL 0.9 mg/dL (0.2-1.0); TOT PROT 6.4 g/dl (6.4-8.2); TROPONIN I < 0.02 ng/ml (0.00-0.05)
--- NOTE | 2017-04-02 21:34 | PDOC ---
*Physical Exam - Vital Signs Last Vital Signs Temp Pulse Resp BP Pulse Ox 97.8 F 93 H 22 131/77 98 04/02/17 17:45 04/02/17 17:45 04/02/17 17:45 04/02/17 17:45 04/02/17 17:45 ED Treatment Course - LABORATORY CBC & Chemistry Diagram: 04/02/17 19:49 04/02/17 19:49 - ADDITIONAL ORDERS Additional order review: Laboratory Results 04/02/17 04/02/17 19:49 19:49 Sodium 131 L Potassium 3.6 Chloride 90 L Carbon Dioxide 27 Anion Gap 14 BUN 26 H D Creatinine 2.0 H D Creat Clearance w eGFR 36.48 Random Glucose 130 H D Calcium 7.5 L D Total Bilirubin 0.9 D AST 35 ALT 27 D Alkaline Phosphatase 55 Creatine Kinase 232 Creatine Kinase Index 0.4 CK-MB (CK-2) 1.018 CK-MB (CK-2) Rel Index Cancelled Troponin I < 0.02 Total Protein 6.4 Albumin 2.5 L D Total Amylase 21 L Lipase 142 04/02/17 19:49 RBC 4.07 MCV 83.0 MCHC 33.5 RDW 14.7 MPV 9.4 D Neutrophils % 74.6 D Lymphocytes % 7.6 L D Monocytes % 17.1 H Eosinophils % 0.1 D Basophils % 0.6 - Medications Given in the ED: ED Medications Discontinued Medications Generic Name Dose Route Start Last Admin Trade Name Freq PRN Reason Stop Dose Admin Pantoprazole Sodium 40 mg/ 100 mls @ 200 mls/hr 04/02/17 19:15 04/02/17 19:53 Sodium Chloride IVPB 04/02/17 19:44 200 mls/hr ONCE ONE Administration Sodium Chloride 1,000 mls @ 1,000 mls/hr 04/02/17 19:15 04/02/17 19:53 Normal Saline - IV 04/02/17 20:14 1,000 mls/hr ASDIR STA Administration Ondansetron HCl 4 mg 04/02/17 19:15 04/02/17 19:53 Zofran Injection IVPB 04/02/17 19:16 4 mg ONCE ONE Administration Medical Decision Making - Medical Decision Making 04/02/17 21:34 agree with care from CHIDI Kowalski *DC/Admit/Observation/Transfer Diagnosis at time of Disposition: Nausea & vomiting, Hiccups, Bilateral lower leg cellulitis - Discharge Dispostion Disposition: HOME Condition at time of disposition: Stable - Prescriptions Prescriptions: Famotidine [Pepcid -] 40 mg PO BID #14 tablet Pantoprazole Sodium [Protonix -] 40 mg PO BID #14 tablet.ec Ondansetron [Zofran Odt -] 4 mg SL Q6H PRN #30 od.tablet PRN Reason: Nausea - Referrals Referrals: New De Guzman MD [Primary Care Provider] - - Patient Instructions Printed Discharge Instructions: Nausea and Vomiting-Adult Additional Instructions: FOLLOW UP WITH YOUR PRIMARY CARE PROVIDER THIS WEEK FOR FURTHER EVALUATION. CALL DR. HUYNH (GASTEROENTEROLOGY) THIS WEEK FOR APPOINTMENT. TAKE MEDICATIONS PRESCRIBED. Print Language: GHANAIAN
[2017-04-03 01:01] LABS: URINE APPEARANCE CLEAR; URINE BILIRUBIN NEGATIVE (NEGATIVE); URINE COLOR YELLOW; URINE GLUCOSE (UA) NEGATIVE (NEGATIVE); URINE KETONE TRACE (NEGATIVE); URINE LEUK ESTERASE NEGATIVE (NEGATIVE); URINE NITRITE NEGATIVE (NEGATIVE); URINE UROBILINOGEN NEGATIVE E.U./dl (0.2-1.0)
[2017-04-03 01:08] LABS: URINE BLOOD 2+ (NEGATIVE); URINE PROTEIN 2+ (NEGATIVE)
[2017-04-03 01:09] LABS: URINE BACTERIA MODERATE /hpf (NONE SEEN); URINE MUCUS RARE; URINE RBC 11 /hpf (0-3); URINE WBC 5 /hpf (3-5)
[2017-04-03 02:00] VITALS: BP 122/85
--- NOTE | 2017-04-03 14:21 | EKG ---
Test Reason : Blood Pressure : / mmHG Vent. Rate : 108 BPM Atrial Rate : 108 BPM P-R Int : 122 ms QRS Dur : 100 ms QT Int : 320 ms P-R-T Axes : 021 018 033 degrees QTc Int : 428 ms SINUS TACHYCARDIA OTHERWISE NORMAL ECG WHEN COMPARED WITH ECG OF 21-FEB-2017 20:11, NO SIGNIFICANT CHANGE WAS FOUND Confirmed by SRUTHI DUMONT MD ([id number]) on 04/03/2017 2:21:33 PM Referred By: Confirmed By:SRUTHI DUMONT MD
== END 2017-04-03 03:17 | disposition home or self-care (01) ==
LOC: JER 17:39
PROC: 3E033GC Introduction of Other Therapeutic Substance into Peripheral Vein, Percutaneous Approach (ICD-10-PCS; principal; 2017-04-02)
DX: L03.116 Cellulitis of left lower limb (principal); L03.115 Cellulitis of right lower limb; I89.0 Lymphedema, not elsewhere classified; I10 Essential (primary) hypertension; E11.9 Type 2 diabetes mellitus without complications; Z79.84 Long term (current) use of oral hypoglycemic drugs; E78.00 Pure hypercholesterolemia, unspecified; E66.01 Morbid (severe) obesity due to excess calories; Z68.45 Body mass index [BMI] 70 or greater, adult
CPT/HCPCS: 36415; 71010-TC; 80053; 81003; 81015; 82150; 82550; 82553; 83690; 84484; 85025; 87040; 87186; 93005; 93010; 96365; 96375; 99284-25

== ENCOUNTER 2017-04-04 20:56 | Inpatient (IN) | payer OTHER ==
[2017-04-04 21:10] VITALS: BMI 75.7
--- NOTE | 2017-04-04 22:48 | PDOC ---
History of Present Illness - General History Source: Patient Exam Limitations: No Limitations - History of Present Illness Initial Comments: 04/04/17 22:57 The patient is a 42 year old male with significant past medical history of hypertension, hyperlipidemia, morbid obesity w/ chronic lymphedema, IDDM and cellulitis who presents to the ED for evaluation of positive blood cultures. Patient reports he was seen here 2 days ago for persistent vomiting, which he has had for some time and states no one knows whats wrong me. He was treated, received antibiotics and discharge. States he received a phone call today and was notified that his blood cultures came back positive. Patient is positive for gram negative bacilli. At time of evaluation, patient does not have any complaints. The patient denies fever, chills, cough, SOB, chest pain, and palpitations. The patient denies abdominal pain, nausea, vomiting, and diarrhea. Allergies: Penicillins, piperacillin sodium, tazobactam sodium Social History: No alcohol, tobacco, or drug use reported. Past Surgical History: None reported PCP: Unknown <Shellie Duckworth - Last Filed: 04/05/17 00:02> - General History Source: Patient <LatrellCelso romero - Last Filed: 04/08/17 19:21> - General Chief Complaint: Revisit, Lab Variance Stated Complaint: PCP REF.-ADMISSION Time Seen by Provider: 04/04/17 22:24 Past History <Shellie Duckworth - Last Filed: 04/05/17 00:02> - Past Medical History Diabetes: Yes GI Disorders: Yes (OBESITY.) HTN: Yes Hypercholesterolemia: Yes - Psycho/Social/Smoking Cessation Hx Anxiety: No Suicidal Ideation: No Smoking History: Never smoked Have you smoked in the past 12 months: No Hx Alcohol Use: No Drug/Substance Use Hx: No Substance Use Type: None <Celso Gutierrez - Last Filed: 04/08/17 19:21> - Past Medical History Allergies/Adverse Reactions: Allergies Allergy/AdvReac Type Severity Reaction Status Date / Time Penicillins Allergy Verified 04/04/17 21:02 piperacillin sodium Allergy Verified 04/04/17 21:02 [From Zosyn] tazobactam sodium Allergy Verified 04/04/17 21:02 [From Zosyn] Home Medications: Ambulatory Orders Atorvastatin Ca [Lipitor] 10 mg PO DAILY 11/16/16 Insulin Lispro Protamin/Lispro [Humalog Mix 75-25 Kwikpen] 20 unit SQ BID Lisinopril 5 mg PO DAILY 11/16/16 Metformin HCl [Metformin HCl ER] 2 tab PO DAILY 11/16/16 Famotidine [Pepcid -] 40 mg PO BID #14 tablet 04/03/17 Ondansetron [Zofran Odt -] 4 mg SL Q6H PRN #30 od.tablet 04/03/17 Pantoprazole Sodium [Protonix -] 40 mg PO BID #14 tablet.ec 04/03/17 Review of Systems - Review of Systems Able to Perform ROS?: Yes Comments:: 04/04/17 22:57 CONSTITUTIONAL: Absent: fever, no chills, no fatigue EYES: Absent: visual changes ENT: Absent: ear pain, no sore throat CARDIOVASCULAR: Absent: chest pain, no palpitations RESPIRATORY: Absent: cough, no SOB GI: Absent: abdominal pain, no nausea, no vomiting, no constipation, no diarrhea GENITOURINARY: Absent: dysuria, no frequency, no hematuria MUSCULOSKELETAL: Absent: back pain, no arthralgia, no myalgia SKIN: Absent: rash NEURO: Absent: headache <Shellie Duckworth - Last Filed: 04/05/17 00:02> *Physical Exam - Vital Signs Last Vital Signs Temp Pulse Resp BP Pulse Ox 98.5 F 104 H 22 131/77 94 L 04/04/17 21:03 04/04/17 21:03 04/04/17 21:03 04/04/17 21:03 04/04/17 21:03 - Physical Exam Comments: 04/04/17 22:57 GENERAL: Morbidity obesity. Well-appearing, well-nourished. No apparent distress. HEENT: Normocephalic, atraumatic. PERRL, EOM intact. CARDIOVASCULAR: Normal S1, S2. Regular rate and rhythm. PULMONARY: Clear to auscultation bilaterally. ABDOMEN: Soft, non-distended, non-tender. EXTREMITIES: Normal ROM in all four extremities. No gross deformities. SKIN: Warm, dry. No rash NEUROLOGICAL: No focal neurological deficits. <Shellie Duckworth - Last Filed: 04/05/17 00:02> - Vital Signs Last Vital Signs Temp Pulse Resp BP Pulse Ox 98.5 F 104 H 22 131/77 94 L 04/04/17 21:03 04/04/17 21:03 04/04/17 21:03 04/04/17 21:03 04/04/17 21:03 <Celso Gutierrez - Last Filed: 04/08/17 19:21> Heart Score/ECG Review - ECG Impressions Comment:: 04/05/17 00:02 NSR @92bpm Incomplete RBBB Borderline ECG <Shellie Duckworth - Last Filed: 04/05/17 00:02> ED Treatment Course - LABORATORY CBC & Chemistry Diagram: 04/08/17 06:45 04/08/17 06:45 <Celso Gutierrez - Last Filed: 04/08/17 19:21> Medical Decision Making - Medical Decision Making 04/05/17 02:45 Dr. Gutierrez: The scribe's documentation has been prepared under my direction and personally reviewed by me in its entirery. I confirm that the note above accurately reflects all work, treatment, procedures, and medical decision making performed by me. Pt recalled because of abnormal blood cultures. Found to have gram negative bacilli. PT started on Levaquin 500mg IV <Celso Gutierrez - Last Filed: 04/08/17 19:21> *DC/Admit/Observation/Transfer - Attestations Scribe Attestion: 04/04/17 22:57 Documentation prepared by Shellie Duckworth, acting as medical certification specialist for Celso Gutierrez MD/DO. <Shellie Duckworth - Last Filed: 04/05/17 00:02> <Celso Gutierrez - Last Filed: 04/08/17 19:21> Diagnosis at time of Disposition: ADMITTED, Bilateral lower leg cellulitis - Discharge Dispostion Condition at time of disposition: Stable - Referrals
[2017-04-04] MEDS ORDERED: SODIUM CHLORIDE 1,000 ML IV STA (22:58)
[2017-04-04] MEDS ORDERED: LEVOFLOXACIN 500 MG IVPB 100 ML IVPB ONE (23:00)
[2017-04-05 00:48] LABS: BASOPHIL 0.5 % (0-2.0); EOSINOPHIL 1.6 % (0-4.5); MCH 27.5 pg (25.7-33.7); MCHC 33.3 g/dl (32.0-35.9); MEAN CELL VOLUME 82.5 fl (80-96); MEAN PLT VOLUME 10.8 fl (7.5-11.1); NEUTROPHILS 70.3 % (42.8-82.8); PLATELET COUNT 194 K/MM3 (134-434); RDW 15.4 % (11.9-15.9); WHITE BLOOD COUNT 15.2 K/mm3 (4.0-10.0)
[2017-04-05] MEDS ORDERED: LEVOFLOXACIN 500 MG IVPB 100 ML IVPB ONE ×2 (00:57→10:00)
[2017-04-05 01:04] LABS: INR 1.05 (0.82-1.09); PROTHROMBIN TIME (PATIENT) 11.6 SEC (9.98-11.88)
[2017-04-05 01:07] LABS: ACTIVATED PTT 20.5 SECONDS (26.9-34.4)
[2017-04-05 02:02] LABS: VENOUS PH 7.43 (7.32-7.42)
[2017-04-05 02:03] LABS: VENOUS BLOOD GAS HCO3 23.8 meq/L (19-25)
[2017-04-05 02:36] LABS: ANION GAP 12 (8-16); BILIRUBIN,TOTAL 0.6 mg/dL (0.2-1.0); CALCIUM 7.5 mg/dL (8.5-10.1); CO2 24 mmol/L (21-32); COCKROFT - GAULT 131.78; CREATININE 1.9 mg/dL (0.7-1.3); GLUCOSE,RANDOM 154 mg/dL (74-106); SGOT/AST 84 U/L (15-37); SGPT/ALT 71 U/L (12-78); TOT PROT 5.8 g/dl (6.4-8.2)
[2017-04-05 02:38] LABS: ALK PHOS 88 U/L (45-117); TROPONIN I < 0.02 ng/ml (0.00-0.05)
[2017-04-05] MEDS ORDERED: POTASSIUM CHLORIDE TABS 20 MEQ TABLET.ER (FP) PO ONE ×2 (02:45→17:23)
[2017-04-05] MEDS ORDERED: ONDANSETRON 4 MG/2 ML VIAL IVPB PRN (03:37)
[2017-04-05] MEDS ORDERED: ACETAMINOPHEN 325 MG TABLET (FP) PO PRN (03:37)
--- NOTE | 2017-04-05 03:43 | HP ---
CHIEF COMPLAINT: Positive blood culture PCP: Nimesh Loyd HISTORY OF PRESENT ILLNESS: Patient is a 42 year old male with significant PMH of HTN, HLD, DM, Morbid obesity w/ chronic lower extremity lymphedema who presents to ED for positive blood culture. As per patient, he came to our ED two days ago with nausea & vomiting. He was worked up and sent home on Zofran and instrcuted to f/u with cut off worker this week. He was called today and told to return to ED for positive blood culture for gram (-) bacilli. Patient denies fever, chills, dysuria, chest pain, SOB, abdominal pain, diarrhea or constipation. ER course was notable for: (1) Leukocytosis 14 (2) ROSALVA, Creatinine 1.9 (was 1.0 in December) with UA 3+ Leukocyte esterase > 100WBC (3) IVF & Levaquin started Recent Travel: none reported PAST MEDICAL HISTORY: as above PAST SURGICAL HISTORY: none reported Social History: Smoking:none reported Alcohol:none reported Drugs:none reported Family History: noncontributory Allergies Penicillins Allergy (Verified 04/04/17 21:02) piperacillin sodium [From Zosyn] Allergy (Verified 04/04/17 21:02) tazobactam sodium [From Zosyn] Allergy (Verified 04/04/17 21:02) HOME MEDICATIONS: Home Medications Medication Instructions Recorded Atorvastatin Ca [Lipitor] 10 mg PO DAILY 11/16/16 Insulin Lispro Protamin/Lispro 20 unit SQ BID 11/16/16 [Humalog Mix 75-25 Kwikpen] Lisinopril 5 mg PO DAILY 11/16/16 Metformin HCl [Metformin HCl ER] 2 tab PO DAILY 11/16/16 Famotidine [Pepcid -] 40 mg PO BID #14 tablet 04/03/17 Ondansetron [Zofran Odt -] 4 mg SL Q6H PRN #30 od.tablet 04/03/17 Pantoprazole Sodium [Protonix -] 40 mg PO BID #14 tablet.ec 04/03/17 REVIEW OF SYSTEMS CONSTITUTIONAL: Absent: fever, chills, diaphoresis, generalized weakness, malaise, loss of appetite, weight change HEENT: Absent: rhinorrhea, nasal congestion, throat pain, throat swelling, difficulty swallowing, mouth swelling, ear pain, eye pain, visual changes CARDIOVASCULAR: Absent: chest pain, syncope, palpitations, irregular heart rate, lightheadedness , peripheral edema RESPIRATORY: Absent: cough, shortness of breath, dyspnea with exertion, orthopnea, wheezing, stridor, hemoptysis GASTROINTESTINAL: Absent: abdominal pain, abdominal distension, nausea, vomiting, diarrhea, constipation, melena, hematochezia GENITOURINARY: Absent: dysuria, frequency, urgency, hesitancy, hematuria, flank pain, genital pain MUSCULOSKELETAL: Absent: myalgia, arthralgia, joint swelling, back pain, neck pain SKIN: Absent: rash, itching, pallor HEMATOLOGIC/IMMUNOLOGIC: Absent: easy bleeding, easy bruising, lymphadenopathy, frequent infections ENDOCRINE: Absent: unexplained weight gain, unexplained weight loss, heat intolerance, cold intolerance NEUROLOGIC: Absent: headache, focal weakness or paresthesias, dizziness, unsteady gait, seizure, mental status changes, bladder or bowel incontinence PSYCHIATRIC: Absent: anxiety, depression, suicidal or homicidal ideation, hallucinations. PHYSICAL EXAMINATION GENERAL: Awake, alert, and fully oriented, in no acute distress. Morbidly obese. HEENT: Atraumatic, EOMI, PERRLA, No lymphadenopathy noted, dry membranes LUNGS: Breath sounds equal, clear to auscultation bilaterally. No wheezes, and no crackles. No accessory muscle use. HEART: Tachycardic with regular rhythm, normal S1 and S2 without murmur, rub or gallop. ABDOMEN: Soft, nontender, not distended, normoactive bowel sounds, no guarding, no rebound, no masses. No hepatomegaly or splenomegaly. MUSCULOSKELETAL: ROM limited to body habitus. No bony deformities or tenderness. No CVA tenderness. UPPER EXTREMITIES: 2+ pulses, warm, well-perfused. No cyanosis. No clubbing. No peripheral edema. LOWER EXTREMITIES: 2+ pulses, warm, well-perfused. Chronic lymphedema (>2years) with venous stasis skin changes in bilateral LE. NEUROLOGICAL: Cranial nerves II-XII intact. Normal speech. Normal gait. PSYCHIATRIC: Cooperative. Good eye contact. Appropriate mood and affect. SKIN: as above ASSESSMENT/PLAN: 42 year old male with significant PMH of HTN, HLD, DM, Morbid obesity w/ chronic lower extremity lymphedema who presents to ED for positive blood culture. #Gram (-) bacteremia, UTI most likely site of origin -Levaquin 500mg IVPB daily started (patient has multiple AB allergies) -IVF NS@100cc/hr -lactic acid normal, will f/u -awaiting sensitivities of blood culture -ordered Urine cultures as well given UA findings -afebrile & normotensive -may need ID consult, defer to day messer given final UA/Ur culture findings #ROSALVA, liekly secondary to UTI -IVF NS@100cc/hr -f/u kidney function in AM -avoid nephrotoxic meds #Hypokalmeia -40mEq given of K-Dur -trend in AM #DM -ISS -BGM ACHS -HbA1C ordered for AM -holding oral meds #HTN/HLD -restarted home meds: Lisinopril 5mg PO daily, Lipitor 10mg PO HS #Morbid obesity -importance of weight loss stressed to patient -needs human resources clerk consult Prophylaxis/FEN -Heparin -SCD's -Protonix 40mg BID PO -IVF NS@100cc/hr -Monitor electrolytes -diabetic diet Visit type - Emergency Visit Emergency Visit: Yes ED Registration Date: 04/05/17 Care time: The patient presented to the Emergency Department on the above date and was hospitalized for further evaluation of their emergent condition. - New Patient This patient is new to me today: Yes Date on this admission: 04/07/17 - Critical Care Critical Care patient: No
[2017-04-05] MEDS ORDERED: SODIUM CHLORIDE 1,000 ML IV SCH (03:45)
[2017-04-05 03:50] LABS: URINE APPEARANCE SLCLOUDY; URINE BILIRUBIN NEGATIVE (NEGATIVE); URINE BLOOD 2+ (NEGATIVE); URINE COLOR LTYELLOW; URINE GLUCOSE (UA) NEGATIVE (NEGATIVE); URINE KETONE NEGATIVE (NEGATIVE); URINE LEUK ESTERASE 3+ (NEGATIVE); URINE NITRITE NEGATIVE (NEGATIVE); URINE PROTEIN 2+ (NEGATIVE); URINE UROBILINOGEN NEGATIVE E.U./dl (0.2-1.0)
[2017-04-05 03:54] LABS: URINE BACTERIA RARE /hpf (NONE SEEN); URINE MUCUS RARE; URINE RBC 5 /hpf (0-3); URINE WBC 105 /hpf (3-5)
--- NOTE | 2017-04-05 03:59 | PN ---
<Lupe Villeda - Last Filed: 04/05/17 03:56> Teaching Attending Note Name of Resident: Pollo Gamez <Denise Mayfield - Last Filed: 04/05/17 04:41> Teaching Attending Note ATTENDING PHYSICIAN STATEMENT I saw and evaluated the patient. I reviewed the resident's note and discussed the case with the resident. I agree with the resident's findings and plan as documented. SUBJECTIVE: 42 yo M presents for reevaluation of positive blood cultures. Patient was in the ED two days ago for persistent vomiting, abdominal distension and gas. Patient was called back to the ED today due to positive gram negative blood cultures. Patient has no complaints upon evaluation. Patient states he's been trying to lose weight recently. PMHx: hypertension, hyperlipidemia, morbid obesity w/ chronic lymphedema, IDDM and cellulitis OBJECTIVE: Last Vital Signs Temp Pulse Resp BP Pulse Ox 98.5 F 104 H 22 131/77 94 L 04/04/17 21:03 04/04/17 21:03 04/04/17 21:03 04/04/17 21:03 04/04/17 21:03 GENERAL: Morbid obesity. Awake, alert, and fully oriented, in no acute distress HEENT: Atraumatic. PERRLA, EOMI. Moist mucosa. No JVD LUNGS: No distress, speaks full sentences, clear to auscultation bilaterally HEART: Regular rate and rhythm, normal S1 and S2, no murmurs, rubs or gallops, peripheral pulses normal and equal bilaterally. ABDOMEN: Soft, nontender, normoactive bowel sounds. No guarding, no rebound. No masses EXTREMITIES: Bilateral LE serous drainage, Normal range of motion, no edema. No clubbing or Cyanosis. NEUROLOGICAL: Cranial nerves II through XII grossly intact. Normal speech, gait not accessed, no focal sensorimotor deficits SKIN: Warm, Dry, normal turgor, no rashes or lesions noted. CBCD WBC 15.2 K/mm3 (4.0-10.0) H D 04/05/17 00:11 RBC 4.00 M/mm3 (4.00-5.60) 04/05/17 00:11 Hgb 11.0 GM/dL (11.7-16.9) L 04/05/17 00:11 Hct 33.0 % (35.4-49) L 04/05/17 00:11 MCV 82.5 fl (80-96) 04/05/17 00:11 MCHC 33.3 g/dl (32.0-35.9) 04/05/17 00:11 RDW 15.4 % (11.9-15.9) 04/05/17 00:11 Plt Count 194 K/MM3 (134-434) D 04/05/17 00:11 MPV 10.8 fl (7.5-11.1) D 04/05/17 00:11 CMP Sodium 133 mmol/L (136-145) L 04/05/17 02:00 Potassium 3.1 mmol/L (3.5-5.1) L 04/05/17 02:00 Chloride 97 mmol/L (98-107) L 04/05/17 02:00 Carbon Dioxide 24 mmol/L (21-32) 04/05/17 02:00 Anion Gap 12 (8-16) 04/05/17 02:00 BUN 31 mg/dL (7-18) H 04/05/17 02:00 Creatinine 1.9 mg/dL (0.7-1.3) H 04/05/17 02:00 Creat Clearance w eGFR 38.70 (>60) 04/05/17 02:00 Calcium 7.5 mg/dL (8.5-10.1) L 04/05/17 02:00 Total Bilirubin 0.6 mg/dL (0.2-1.0) D 04/05/17 02:00 AST 84 U/L (15-37) H D 04/05/17 02:00 ALT 71 U/L (12-78) D 04/05/17 02:00 Alkaline Phosphatase 88 U/L (45-117) D 04/05/17 02:00 Total Protein 5.8 g/dl (6.4-8.2) L 04/05/17 02:00 Albumin 2.0 g/dl (3.4-5.0) L 04/05/17 02:00 ASSESSMENT AND PLAN: 1.) Bacteremia secondary to gram negative bacilli -IV Levofloxacin 750 mg Daily -IVF NS at 125/hour -Repeat BMP -Avoid nephrotoxic medications -Follow UA and UC 2.) Morbid Obesity -Patient counseled on weight loss -Refer to lead pressman [employer] 3.) NIDDM -RISS -Finger sticks ACHS Documentation prepared by Denise Mayfield acting as medical device assembler for Lupe Villeda M.D.
[2017-04-05] MEDS ORDERED: POTASSIUM CHLORIDE ORAL LIQUID 20 MEQ/15 ML ONE (06:41)
[2017-04-05 06:43] LABS: MCH 27.3 pg (25.7-33.7); MEAN CELL VOLUME 82.6 fl (80-96); MEAN PLT VOLUME 9.7 fl (7.5-11.1); PLATELET COUNT 203 K/MM3 (134-434); RDW 15.1 % (11.9-15.9); WHITE BLOOD COUNT 14.1 K/mm3 (4.0-10.0)
[2017-04-05] MEDS ORDERED: HEPARIN NA (PORCINE) 5,000 UNITS/ML 1ML VIAL ONE (06:43)
[2017-04-05] MEDS: HEPARIN NA (PORCINE) 5,000 UNITS/ML 1ML VIAL SQ SCH ×3 (06:52→22:01)
[2017-04-05] MEDS: INSULIN SLIDING SCALE (NOVOLOG) 1 VIAL SQ SCH ×4 (07:08→23:02)
[2017-04-05 07:10] LABS: ALBUMIN 2.2 g/dl (3.4-5.0); CALCIUM 7.7 mg/dL (8.5-10.1); COCKROFT - GAULT 139.1; CREATININE 1.8 mg/dL (0.7-1.3)
[2017-04-05 07:12] LABS: BILIRUBIN,TOTAL 0.9 mg/dL (0.2-1.0); TOT PROT 6.2 g/dl (6.4-8.2)
[2017-04-05] MEDS ORDERED: INSULIN DETEMIR 100 UNITS/ML MDV SQ ONE ×2 (09:54→10:13)
[2017-04-05] MEDS ORDERED: LISINOPRIL 5 MG TABLET (FP) PO SCH (10:00)
[2017-04-05] MEDS ORDERED: PANTOPRAZOLE 40 MG TABLET (FP) ONE (10:11)
[2017-04-05] MEDS ORDERED: amLODIPine BESYLATE 5 MG TABLET (FP) ONE (10:12)
[2017-04-05] MEDS: amLODIPine BESYLATE 5 MG TABLET (FP) PO SCH (10:17)
[2017-04-05] MEDS: PANTOPRAZOLE 40 MG TABLET (FP) PO SCH ×2 (10:18→23:01)
--- NOTE | 2017-04-05 10:22 | EKG ---
Test Reason : Blood Pressure : / mmHG Vent. Rate : 092 BPM Atrial Rate : 092 BPM P-R Int : 126 ms QRS Dur : 110 ms QT Int : 366 ms P-R-T Axes : 016 032 034 degrees QTc Int : 452 ms NORMAL SINUS RHYTHM INCOMPLETE RIGHT BUNDLE BRANCH BLOCK WHEN COMPARED WITH ECG OF 02-APR-2017 20:25, NO SIGNIFICANT CHANGE WAS FOUND Confirmed by SID GREEN MD ([id number]) on 04/05/2017 10:22:47 AM Referred By: Confirmed By:SID GREEN MD
[2017-04-05] MEDS ORDERED: LEVOFLOXACIN 750 MG TABLET PO SCH (11:59)
--- NOTE | 2017-04-05 13:54 | MSN ---
Progress Note (SOAP) - Subjective Chief Complaint: Positive blood culture History of Present Illness: This is a 42yo M who presented to our ER due to positive blood cultures taken before his D/C 3 days prior. He originally presented on 02/22 for urinary retention, abdominal bloating, abdominal pain, N/V and dry retching. A Gonzales was placed. He also had a LE wound which grew Proteus. He was last D/C on 04/02 with PPI's and Zofran. He was called yesterday 04/04 and asked to return because his blood cultures grew gram (-) bacilli. Today he denies chest pain, SOB, N/V, headache, lightheadedness, dizzyness, urinary trouble or abdominal pain. He states he hasn't been eating much over the last 2 weeks, and feels cold. - Current Medications Current Medications: Active Medications Acetaminophen (Tylenol -) 650 mg PO Q4H PRN PRN Reason: FEVER OR PAIN Amlodipine Besylate (Norvasc -) 5 mg PO DAILY [facility] Last Admin: 04/05/17 10:17 Dose: 5 mg Atorvastatin Calcium (Lipitor -) 10 mg PO HS [facility] Heparin Sodium (Porcine) (Heparin -) 5,000 unit SQ TID [facility] Last Admin: 04/05/17 06:52 Dose: 5,000 unit Sodium Chloride (Normal Saline -) 1,000 mls @ 100 mls/hr IV ASDIR [facility] Stop: 04/05/17 13:44 Last Admin: 04/05/17 03:58 Dose: 100 mls/hr Insulin Aspart (Novolog Vial Sliding Scale -) 1 vial SQ ACHS [facility] PRN Reason: Protocol Last Admin: 04/05/17 07:08 Dose: Not Given Insulin Detemir (Levemir Vial) 7 units SQ HS [facility] Levofloxacin (Levaquin) 750 mg PO DAILY@0600 [facility] Ondansetron HCl (Zofran Injection) 4 mg IVPB Q6H PRN PRN Reason: NAUSEA Pantoprazole Sodium (Protonix -) 40 mg PO BID [facility] Last Admin: 04/05/17 10:18 Dose: 40 mg - Objective Vital Signs: Vital Signs Temperature 97.7 F 04/05/17 11:55 Pulse Rate 87 04/05/17 11:55 Respiratory Rate 18 04/05/17 11:55 Blood Pressure 131/73 04/05/17 11:55 O2 Sat by Pulse Oximetry (%) 95 04/05/17 11:55 Constitutional: Yes: Well Nourished, No Distress, Calm, Obese Eyes: Yes: WNL, Conjunctiva Clear, EOM Intact Cardiovascular: Yes: WNL, Regular Rate and Rhythm. No: Murmur, Rub Respiratory: Yes: WNL, Regular, CTA Bilaterally. No: Rales, Wheezes Gastrointestinal: Yes: Soft, Abdomen, Obese. No: Tenderness Genitourinary: Yes: Other (No suprapubic pain or hematuria) Edema: Yes Edema: LLE: 3+, RLE: 3+ Neurological: Yes: WNL, Alert, Oriented, Cran Nerves II-XII Intact ...Motor Strength: Yes: WNL Psychiatric: Yes: WNL, Alert, Oriented Labs Lab Results: CBC, BMP 04/05/17 06:25 04/05/17 06:25 Laboratory Results - last 24 hr 04/05/17 04/05/17 04/05/17 00:11 00:11 00:11 WBC 15.2 H D RBC 4.00 Hgb 11.0 L Hct 33.0 L MCV 82.5 MCHC 33.3 RDW 15.4 Plt Count 194 D MPV 10.8 D Neutrophils % 70.3 Lymphocytes % 12.8 D Monocytes % 14.8 H Eosinophils % 1.6 D Basophils % 0.5 ESR INR 1.05 PTT (Actin FS) 20.5 L VBG pH POC VBG pCO2 POC VBG pO2 Mixed VBG HCO3 Sodium Cancelled Potassium Cancelled Chloride Cancelled Carbon Dioxide Cancelled Anion Gap Cancelled BUN Cancelled Creatinine Cancelled Creat Clearance w eGFR Cancelled Random Glucose Cancelled Hemoglobin A1c % Lactic Acid Calcium Cancelled Total Bilirubin Cancelled AST Cancelled ALT Cancelled Alkaline Phosphatase Cancelled Creatine Kinase Cancelled Troponin I Cancelled Total Protein Cancelled Albumin Cancelled Urine Color Urine Appearance Urine pH Ur Specific [place] Urine Protein Urine Glucose (UA) Urine Ketones Urine Blood Urine Nitrite Urine Bilirubin Urine Urobilinogen Ur Leukocyte Esterase Urine RBC Urine WBC Ur Epithelial Cells Urine Bacteria Urine Mucus Blood Type Antibody Screen 04/05/17 04/05/17 04/05/17 00:11 00:12 01:11 WBC RBC Hgb Hct MCV MCHC RDW Plt Count MPV Neutrophils % Lymphocytes % Monocytes % Eosinophils % Basophils % ESR INR PTT (Actin FS) VBG pH POC VBG pCO2 POC VBG pO2 Mixed VBG HCO3 Sodium Potassium Chloride Carbon Dioxide Anion Gap BUN Creatinine Creat Clearance w eGFR Random Glucose Hemoglobin A1c % Lactic Acid 0.558 Calcium Total Bilirubin AST ALT Alkaline Phosphatase Creatine Kinase Troponin I Total Protein Albumin Urine Color Ltyellow Urine Appearance Slcloudy Urine pH 6.0 Ur Specific [place] 1.010 Urine Protein 2+ H Urine Glucose (UA) Negative Urine Ketones Negative Urine Blood 2+ H Urine Nitrite Negative Urine Bilirubin Negative Urine Urobilinogen Negative Ur Leukocyte Esterase 3+ H Urine RBC 5 Urine WBC 105 Ur Epithelial Cells Rare Urine Bacteria Rare Urine Mucus Rare Blood Type O POSITIVE Antibody Screen Negative 04/05/17 04/05/17 04/05/17 01:11 02:00 06:25 WBC 14.1 H RBC 4.07 Hgb 11.1 L Hct 33.6 L MCV 82.6 MCHC 33.0 RDW 15.1 Plt Count 203 MPV 9.7 D Neutrophils % Lymphocytes % Monocytes % Eosinophils % Basophils % ESR INR PTT (Actin FS) VBG pH 7.43 H POC VBG pCO2 36.9 L POC VBG pO2 59.5 H Mixed VBG HCO3 23.8 Sodium 133 L Potassium 3.1 L Chloride 97 L Carbon Dioxide 24 Anion Gap 12 BUN 31 H Creatinine 1.9 H Creat Clearance w eGFR 38.70 Random Glucose 154 H Hemoglobin A1c % Lactic Acid Calcium 7.5 L Total Bilirubin 0.6 D AST 84 H D ALT 71 D Alkaline Phosphatase 88 D Creatine Kinase 141 Troponin I < 0.02 Total Protein 5.8 L Albumin 2.0 L Urine Color Urine Appearance Urine pH Ur Specific [place] Urine Protein Urine Glucose (UA) Urine Ketones Urine Blood Urine Nitrite Urine Bilirubin Urine Urobilinogen Ur Leukocyte Esterase Urine RBC Urine WBC Ur Epithelial Cells Urine Bacteria Urine Mucus Blood Type Antibody Screen 04/05/17 04/05/17 04/05/17 06:25 06:25 06:25 WBC RBC Hgb Hct MCV MCHC RDW Plt Count MPV Neutrophils % Lymphocytes % Monocytes % Eosinophils % Basophils % ESR 115 H INR PTT (Actin FS) VBG pH POC VBG pCO2 POC VBG pO2 Mixed VBG HCO3 Sodium 132 L Potassium 3.2 L Chloride 95 L Carbon Dioxide 26 Anion Gap 11 BUN 30 H Creatinine 1.8 H Creat Clearance w eGFR 41.19 Random Glucose 149 H Hemoglobin A1c % 7.7 H D Lactic Acid Calcium 7.7 L Total Bilirubin 0.9 D AST 78 H ALT 71 Alkaline Phosphatase 82 Creatine Kinase Troponin I Total Protein 6.2 L Albumin 2.2 L Urine Color Urine Appearance Urine pH Ur Specific [place] Urine Protein Urine Glucose (UA) Urine Ketones Urine Blood Urine Nitrite Urine Bilirubin Urine Urobilinogen Ur Leukocyte Esterase Urine RBC Urine WBC Ur Epithelial Cells Urine Bacteria Urine Mucus Blood Type Antibody Screen Last Vital Signs Temp Pulse Resp BP Pulse Ox 97.9 F 89 18 135/74 92 L 04/05/17 13:36 04/05/17 13:36 04/05/17 13:36 04/05/17 13:36 04/05/17 13:36 Imaging - Results Ultrasound: Report Reviewed (Bladder U/S: enlarged kidneys without hydronephrosis or stones.) Assessment/Plan 42yo M with PMH of HTN, HLD, DM Type 2, and morbid obesity w/ chronic lower extremity lymphedema presents to [facility] for gram negative bacteremia secondary to UTI. Bacteremia 2/2 Gram (-) organism -UTI most likely site of origin -Levaquin 750mg IVPB daily started (patient has multiple ABX allergies) -IVF NS @ 100cc/hr -awaiting sensitivities of blood culture -ordered Urine and new blood cultures -afebrile & normotensive ROSALVA -likely secondary to UTI and decreased oral intake -IVF NS @ 100cc/hr -BUN 30 and Cr 1.8 -D/C lisinopril, substitute with amlodipine 5mg PO qd Hyponatremia -most likely secondary to hypotonic hypovolemia -IVF NS @ 100cc/hr Hypokalmeia -40mEq K-Dur given overnight -Will consider administering more potassium DM Type 2 -ISS -BGM ACHS -HbA1C 7.7 -add levemir 7 units before breakfast HTN -switch Lisinopril 5mg PO daily to amlodipine 5mg PO qd to prevent renal injury HLD -Continue Lipitor 10mg PO HS Morbid obesity -importance of weight loss stressed to patient Prophylaxis/FEN -Heparin -SCD's -Protonix 40mg BID PO -IVF NS@100cc/hr -Monitor electrolytes -diabetic diet
--- NOTE | 2017-04-05 14:00 | PN ---
Teaching Attending Note Name of Resident: Alison Sanchez ATTENDING PHYSICIAN STATEMENT I saw and evaluated the patient. I reviewed the resident's note and discussed the case with the resident. I agree with the resident's findings and plan as documented. SUBJECTIVE: has no pain , SOB or CP this am , denies abd pain, reports slight stinging with urination in past few days , denies hematuria . no Nausea or vomiting OBJECTIVE: NAD , sitting in chair, no bed in ER room CV: RRR Lungs: CTAB abd : obese , NT, N LBS , slight erythema in groins under abd folds. no TTP . Ext ; thick skin with chronic skin changes, slight pitting edema on legs . slight greenish discharge form posterior R leg, no wounds . fungal infection seen between toes 4-5 on both sides ASSESSMENT AND PLAN: 41 y/o male with h/o HTN, IDDM, Lymphedema , LE wounds, and recent admission for urinary retention , and wound infection , recent ESBL infection of wounds , who presented after being called due to blood cx growing G- bacilli 1- Bacteremia : likely the source is complicated UTI. LE have much improved and minimal discharge is seen. unlikley the source if LE infection - cont levaquin pending further identification - repeat blood cx pending - follow urine x ( might not be accurate as he was on Abx as out pt ) 2- DM: we don't carry novolog mix 75/25. - cont SSI - add levemir 7 units 3- ROSALVA : likely prerenal in etiology due to decreased po intake by history. - check renal US to r/o obstructive uropathy - check post void bladder scan - cont IVF - hold lisinopril 4- HTN: hold lisinopril and add norvasc for now 5- tinea pedes : start nystatin powder dispo: HLOC
--- NOTE | 2017-04-05 15:24 | PN ---
Physical Exam: SUBJECTIVE: Patient seen and examined at bed side this morning. Slight discomfort during urination. Otherwise no complaints. Denies abdominal pain, nausea, vomiting, chest pain, sob, cough, palpitation, hematuria, burning urination or any urinary symptoms. OBJECTIVE: Vital Signs Period Temp Pulse Resp BP Sys/Eric Pulse Ox Last 24 Hr 97.7 F-98.5 F 85-89 18-18 114-136/62-75 92-96 GENERAL: The patient is a morbidly obese patient, sitting comfortably in a chair , awake, alert, and fully oriented, in no acute distress. HEAD: Normal with no signs of trauma. EYES:EOM intact, no pallor or icterus. ENT: Ears normal, nares patent, oropharynx clear without exudates, moist mucous membranes. NECK: Trachea midline, full range of motion, supple. LUNGS: Breath sounds equal, clear to auscultation bilaterally, no wheezes, no crackles, no accessory muscle use. HEART: Regular rate and rhythm, S1, S2 without murmur, rub or gallop. ABDOMEN: Slight erythema under the abdominal folds, Soft, nontender, nondistended, normoactive bowel sounds, no guarding, no rebound, no hepatosplenomegaly, no masses. UPPER EXTREMITIES: 2+ pulses, warm, well-perfused, no edema. LOWER EXTREMITIES: 2+ pulses, warm, well-perfused. B/L LE lymphedema (>2years) with chronic superficial ulcers draining minimal serosanguinous fluid on the right posterior side of LE; fungal infection in between the toes in b/l 4th- 5th digits. Dressing in place in B/L LE. NEUROLOGICAL: Cranial nerves II through XII grossly intact. Normal speech, gait not observed. PSYCH: Normal mood, normal affect. SKIN: Warm, dry, normal turgor, no rashes or lesions noted Laboratory Results - last 24 hr 04/05/17 04/05/17 04/05/17 06:25 06:25 06:25 WBC 14.1 H RBC 4.07 Hgb 11.1 L Hct 33.6 L MCV 82.6 MCHC 33.0 RDW 15.1 Plt Count 203 MPV 9.7 D ESR Sodium 132 L Potassium 3.2 L Chloride 95 L Carbon Dioxide 26 Anion Gap 11 BUN 30 H Creatinine 1.8 H Creat Clearance w eGFR 41.19 Random Glucose 149 H Hemoglobin A1c % 7.7 H D Calcium 7.7 L Total Bilirubin 0.9 D AST 78 H ALT 71 Alkaline Phosphatase 82 Total Protein 6.2 L Albumin 2.2 L 04/05/17 06:25 WBC RBC Hgb Hct MCV MCHC RDW Plt Count MPV ESR 115 H Sodium Potassium Chloride Carbon Dioxide Anion Gap BUN Creatinine Creat Clearance w eGFR Random Glucose Hemoglobin A1c % Calcium Total Bilirubin AST ALT Alkaline Phosphatase Total Protein Albumin Active Medications Generic Name Dose Route Start Last Admin Trade Name Freq PRN Reason Stop Dose Admin Acetaminophen 650 mg 04/05/17 03:37 Tylenol - PO Q4H PRN FEVER OR PAIN Amlodipine Besylate 5 mg 04/05/17 10:00 04/05/17 10:17 Norvasc - PO 5 mg DAILY [facility] Administration Atorvastatin Calcium 10 mg 04/05/17 22:00 Lipitor - PO HS [facility] Heparin Sodium (Porcine) 5,000 unit 04/05/17 06:00 04/05/17 13:53 Heparin - SQ 5,000 unit TID [facility] Administration Insulin Aspart 1 vial 04/05/17 07:00 04/05/17 13:42 Novolog Vial Sliding Scale - SQ Not Given ACHS [facility] Protocol Insulin Detemir 7 units 04/06/17 22:00 Levemir Vial SQ HS [facility] Levofloxacin 750 mg 04/05/17 14:00 Levaquin - PO DAILY@0600 [facility] Ondansetron HCl 4 mg 04/05/17 03:37 Zofran Injection IVPB Q6H PRN NAUSEA Pantoprazole Sodium 40 mg 04/05/17 10:00 04/05/17 10:18 Protonix - PO 40 mg BID [facility] Administration 04/05/2017: Renal Ultrasound: Both kidneys are enlarged without the evidence of hydronephrosis or stones. Fatty liver vs hepatocellular disease. please correlate with liver enzymes. ASSESSMENT/PLAN: Patient is a 42 year old male with significant PMH of HTN, HLD, DM, Morbid obesity w/ chronic lower extremity lymphedema who presents to ED for positive blood culture. # Gram negative bacteremia, likely from UTI - Patient was seen in the ED 2 (04/03/2017) days ago for evaluation of nausea, vomiting and abdominal pain. He was sent home on famotidine, pantoprazole and zofran and to f/up with GI doctor. Since patients blood culture grew gram negative bacteria, he was asked to come back to the hospital for further investigation and IV antibiotics. - On admission, patient was afebrile & normotensive - Continue Levaquin 750mg IVPB daily started (patient has multiple AB allergies) -IVF NS @100cc/hr -lactic acid normal, will f/u -awaiting sensitivities of blood culture and will change the antibiotics accordingly. -ordered Urine cultures- pending -avoid nephrotoxic meds # Acute Kidney Injury Likely prerenal - USG of kidney and bladder was done to r/o obstructive uropathy: which showed B /L enlarged Kidneys without any hydronephrosis - post void bladder scan - cont IVF - hold lisinopril -avoid nephrotoxic drugs #Hypokalmeia -40mEq given of K-Dur -Trend in AM # Hypovolemic Hyponatremia Na-132 Continue IV fluids # Diabetes Mellitus -ISS -BGM ACHS -HbA1C 7.7 -Added Levemir 7 U daily, will adjust the dose according to the blood sugar level. -Hold Metformin -Patient said he takes Inj Exenatide once a week. Will continue after discussing with Dr. Klein. #Hypertension- stable / Hyperlipidemia - Lisinopril 5mg on hold and started Amlodipine 5mg Daily, Lipitor 10mg PO HS # Morbid obesity - Weight loss counseling -needs language teacher consult # FEN IV NS @ 100mls/hr Electrolytes to be repeated tomorrow Diabetic diet # Prophylaxis For DVT: Heparin 5000 IU TID For GI: Protonix 40mg BID PO # Code Status: Full Code # Dispo: Admitted in Med-Surg. Duration of stay unknown. Illness, Investigation and Plan of care explained to the patient. He verbalized understanding. Case seen and discussed with Dr. Klein. Visit type - Emergency Visit Emergency Visit: Yes ED Registration Date: 04/05/17 Care time: The patient presented to the Emergency Department on the above date and was hospitalized for further evaluation of their emergent condition. - New Patient This patient is new to me today: Yes Date on this admission: 04/05/17 - Critical Care Critical Care patient: No
[2017-04-05] MEDS: LEVOFLOXACIN 250 MG TABLET (FP) PO SCH (16:57)
[2017-04-05] MEDS ORDERED: ATORVASTATIN CA 10 MG TABLET (FP) PO SCH (22:00)
[2017-04-05] MEDS: ATORVASTATIN CA 10 MG TABLET (FP) PO SCH (23:00)
[2017-04-06] MEDS: HEPARIN NA (PORCINE) 5,000 UNITS/ML 1ML VIAL SQ SCH ×3 (06:10→22:29)
[2017-04-06] MEDS: LEVOFLOXACIN 250 MG TABLET (FP) PO SCH (06:10)
[2017-04-06] MEDS: INSULIN SLIDING SCALE (NOVOLOG) 1 VIAL SQ SCH ×4 (06:47→22:32)
[2017-04-06] MEDS ORDERED: INSULIN DETEMIR 100 UNITS/ML MDV SQ SCH ×3 (08:00→22:00)
[2017-04-06 08:33] LABS: MCHC 33.5 g/dl (32.0-35.9); MEAN CELL VOLUME 83.6 fl (80-96); MEAN PLT VOLUME 8.9 fl (7.5-11.1); PLATELET COUNT 242 K/MM3 (134-434); RDW 15.5 % (11.9-15.9); WHITE BLOOD COUNT 14.2 K/mm3 (4.0-10.0)
[2017-04-06 08:55] LABS: ALBUMIN 2.3 g/dl (3.4-5.0); BILIRUBIN,TOTAL 0.7 mg/dL (0.2-1.0); CALCIUM 8.1 mg/dL (8.5-10.1); COCKROFT - GAULT 156.48; CREATININE 1.6 mg/dL (0.7-1.3); TOT PROT 6.4 g/dl (6.4-8.2)
[2017-04-06 09:03] LABS: THYROID STIMULATING HORMONE 2.76 uIU/ml (0.358-3.74)
--- NOTE | 2017-04-06 09:40 | PN ---
Progress Note (short form) - Note Progress Note: Subjective: no fever or chills, has no abd pain. no events over night Objective: Vital Signs: Last Vital Signs Temp Pulse Resp BP Pulse Ox 98.7 F 92 H 22 118/69 94 L 04/06/17 06:00 04/06/17 06:00 04/06/17 06:00 04/06/17 06:00 04/05/17 21:00 Physical Exam: NAD , sitting in chair CV: RRR Lungs: CTAB abd : obese , NT, N LBS , slight erythema in groins under abd folds. no TTP . Ext ; thick skin with chronic skin changes, slight pitting edema on legs . very minimal greenish discharge form posterior R leg on dressing, no wounds . ASSESSMENT AND PLAN: 41 y/o male with h/o HTN, IDDM, Lymphedema , LE wounds, and recent admission for urinary retention , and wound infection , recent ESBL infection of wounds , who presented after being called due to blood cx growing G- bacilli 1- Bacteremia with E coli, :source is UTI, nishi with urine cx growing G- bacteria . E coli is resistant to Levaquin - chenage Levaquin to Aztreonam, given his PCN allergy - Place ID consult - follow repeat blood cx , and final urine cx - need urology eval as out pt 2- DM: we don't carry novolog mix 75/25. - cont SSI - can increase levemir to 10 units 3- ROSALVA : likely prerenal in etiology due to decreased po intake by history. - reanl US with no obstruction , or hydro - cont IVF - hold lisinopril 4- HTN: cotnto hold lisinopril and cont norvasc for now 5- tinea pedes and tinea Cruris : nystatin powder dispo: HLOC HLOC Visit type - Emergency Visit Emergency Visit: Yes ED Registration Date: 04/05/17 Care time: The patient presented to the Emergency Department on the above date and was hospitalized for further evaluation of their emergent condition. - New Patient This patient is new to me today: No - Critical Care Critical Care patient: No
[2017-04-06] MEDS: amLODIPine BESYLATE 5 MG TABLET (FP) PO SCH (09:56)
[2017-04-06] MEDS: PANTOPRAZOLE 40 MG TABLET (FP) PO SCH ×2 (09:56→22:32)
[2017-04-06] MEDS ORDERED: AZTREONAM 1 GM in DEXTROSE 5%-WATER - 50 ML IVPB ONE (10:00)
[2017-04-06] MEDS ORDERED: AZTREONAM 1 GM in DEXTROSE 5%-WATER - 50 ML IVPB SCH (10:00)
[2017-04-06] MEDS: NYSTATIN POWDER 100,000 UNITS/GM - 15 GM TOPICAL POWDER TP SCH (10:07)
--- NOTE | 2017-04-06 10:11 | PN ---
Progress Note (short form) - Note Progress Note: ID Consult dictated Gram negative bacteremia/ sepsis E coli UTI/Sepsis secondary to UTI PCN allergy (facial rash after zosyn) Hx ESBL/MRSA ceftriaxone 2gm IVPB q24h Urology consult ( urosepsis, hx acute urinary retention ? BPH ? Neurogenic bladder)
[2017-04-06] MEDS ORDERED: CEFTRIAXONE 2 GM in DEXTROSE 5%-WATER - 100 ML IVPB SCH (10:15)
[2017-04-06] MEDS: CEFTRIAXONE 100 ML IVPB SCH (11:46)
--- NOTE | 2017-04-06 15:28 | CONS ---
INFECTIOUS DISEASE CONSULTATION DATE OF CONSULTATION: DATE OF DICTATION: 04/06/2017 HISTORY OF PRESENT ILLNESS: 42-year-old male, morbidly obese diabetic evaluated for positive blood in urine cultures. The patient was admitted to the hospital in January of this year with acute urinary retention. He now returns to the emergency room with abdominal complaints, anorexia, nausea, vomiting. Blood and urine cultures are positive for gram-negative rods. Blood culture grew an E. coli, which was sensitive to third generation cephalosporins. ALLERGIES: Patient has a history of PENICILLIN allergy. He had developed a facial rash after receiving ZOSYN on his last admission. REVIEW OF SYSTEMS: At the present time, he denies any voiding difficulties. No dysuria or hematuria. No complaints of suprapubic or flank discomfort. PAST MEDICAL HISTORY: Positive for morbid obesity, diabetes mellitus, chronic lymphedema, acute urinary retention, hypertension, hyperlipidemia, chronic venous stasis, dermatitis. MEDICATIONS: Lipitor, metformin, Pepcid, Protonix. LAB DATA: White count 14.2, hematocrit 33.5, platelet count 242. BUN 22, creatinine 1.6. Urinalysis: 105 white cells. Blood cultures positive for E. coli. Urine culture: lactose chainman. Previous wound cultures positive for ESPO and MRSA. EXAMINATION: General: He is out about the chair. He is awake and alert. He is not acutely toxic-appearing. Vital signs: Temperature 98.7. Blood pressure 118/69. Pulse 92/regular. Respirations 20 per minute. HEENT: Sclera anicteric. Heart: Heart sounds S1, S2. Lungs: Clear. Abdomen: Obese, soft, nontender. No suprapubic or flank tenderness. Extremities: Positive for lymphedema. IMPRESSION: 1. Gram-negative bacteremia/sepsis E. coli. 2. Urinary tract infection/sepsis secondary to urinary tract infection. 3. PENICILLIN allergy. 4. History of acute urinary retention. Will substitute ceftriaxone 2 gm IV piggyback every 24 hours. Would consult urology in light of urosepsis and history of acute urinary retention. Patient may be have BPH or neurogenic bladder. Thank you for the kind referral. SID ZAMBRANO M.D. [id number]
[2017-04-06] MEDS: ATORVASTATIN CA 10 MG TABLET (FP) PO SCH (22:32)
[2017-04-07] MEDS: INSULIN DETEMIR 100 UNITS/ML MDV SQ SCH (06:32)
[2017-04-07] MEDS: HEPARIN NA (PORCINE) 5,000 UNITS/ML 1ML VIAL SQ SCH ×3 (06:32→21:55)
[2017-04-07] MEDS: INSULIN SLIDING SCALE (NOVOLOG) 1 VIAL SQ SCH ×4 (06:33→21:57)
--- NOTE | 2017-04-07 08:27 | PN ---
Progress Note (short form) - Note Progress Note: ID Remains stable without complaints No fever ( since admission) Selected Entries 04/07/17 06:00 Temperature 97.9 F Pulse Rate 83 Respiratory 20 Rate Blood Pressure 120/61 Microbiology 04/05/17 01:11 Urine - Urine Clean Catch Urine Culture - Preliminary Lactose Fermenting Neg Bacilli 04/05/17 00:12 Blood - Peripheral Venous Blood Culture - Preliminary NO GROWTH OBTAINED AFTER 48 HOURS, INCUBATION TO CONTINUE FOR 3 DAYS. 04/05/17 00:12 Blood - Peripheral Venous Blood Culture - Preliminary NO GROWTH OBTAINED AFTER 48 HOURS, INCUBATION TO CONTINUE FOR 3 DAYS. Laboratory Tests 04/05/17 04/05/17 04/05/17 00:11 01:11 06:25 WBC 15.2 H D Hgb Hct Plt Count ESR 115 H BUN Creatinine Ur Leukocyte Esterase 3+ H Urine RBC 5 Urine WBC 105 04/06/17 04/06/17 08:00 08:00 WBC 14.2 H Hgb 11.2 L Hct 33.5 L Plt Count 242 ESR BUN 22 H D Creatinine 1.6 H Ur Leukocyte Esterase Urine RBC Urine WBC Assessment E Coli bacteremia UTI resistant to Floroquinolone This will mean at least 7 days IV therapy then dose Keflex Check sensitivity when final [place]on DE [place]
[2017-04-07 08:50] LABS: MCH 27.6 pg (25.7-33.7); MCHC 33.3 g/dl (32.0-35.9); MEAN CELL VOLUME 82.8 fl (80-96); MEAN PLT VOLUME 8.7 fl (7.5-11.1); PLATELET COUNT 302 K/MM3 (134-434); RDW 15.3 % (11.9-15.9); WHITE BLOOD COUNT 16.2 K/mm3 (4.0-10.0)
[2017-04-07 09:08] LABS: CALCIUM 8.3 mg/dL (8.5-10.1); COCKROFT - GAULT 166.92; CREATININE 1.5 mg/dL (0.7-1.3)
[2017-04-07] MEDS: NYSTATIN POWDER 100,000 UNITS/GM - 15 GM TOPICAL POWDER TP SCH (10:16)
[2017-04-07] MEDS: amLODIPine BESYLATE 5 MG TABLET (FP) PO SCH (10:16)
[2017-04-07] MEDS: CEFTRIAXONE 100 ML IVPB SCH (10:16)
[2017-04-07] MEDS: PANTOPRAZOLE 40 MG TABLET (FP) PO SCH ×2 (10:16→21:57)
[2017-04-07 12:46] LABS: PLATELET ESTIMATE ADEQUATE (NORMAL)
--- NOTE | 2017-04-07 17:09 | PN ---
Progress Note (short form) - Note Progress Note: Subjective: no fever or chills, has no abd pain. no events over night Objective: Vital Signs: Last Vital Signs Temp Pulse Resp BP Pulse Ox 98 F 86 22 140/71 98 04/07/17 16:30 04/07/17 16:30 04/07/17 16:30 04/07/17 16:30 04/07/17 09:00 Laboratory Results - last 24 hr 04/06/17 04/06/17 04/07/17 16:57 22:25 06:07 WBC RBC Hgb Hct MCV MCHC RDW Plt Count MPV Neutrophils % Lymphocytes % Monocytes % Eosinophils % Band Neutrophils Myelocytes Differential Comment Platelet Estimate Sodium Potassium Chloride Carbon Dioxide Anion Gap BUN Creatinine POC Glucometer 186 226 156 Random Glucose Calcium 04/07/17 04/07/17 04/07/17 08:20 08:20 12:36 WBC 16.2 H RBC 4.06 Hgb 11.2 L Hct 33.6 L MCV 82.8 MCHC 33.3 RDW 15.3 Plt Count 302 D MPV 8.7 Neutrophils % 59.0 Lymphocytes % 19.0 D Monocytes % 13.0 H Eosinophils % 3.0 D Band Neutrophils 2.0 Myelocytes 4 H Differential Comment Manual diff done Platelet Estimate Adequate Sodium 136 Potassium 3.7 Chloride 100 Carbon Dioxide 26 Anion Gap 10 BUN 19 H Creatinine 1.5 H POC Glucometer 163 Random Glucose 162 H Calcium 8.3 L Physical Exam: NAD , sitting in chair CV: RRR Lungs: CTAB abd : obese , NT, N LBS , slight erythema in groins under abd folds. no TTP . Ext ; thick skin with chronic skin changes, slight pitting edema on legs . very minimal greenish discharge form posterior R leg on dressing, no wounds . ASSESSMENT AND PLAN: 41 y/o male with h/o HTN, IDDM, Lymphedema , LE wounds, and recent admission for urinary retention , and wound infection , recent ESBL infection of wounds , who presented after being called due to blood cx growing G- bacilli 1- Bacteremia with E coli from urinary source urine cx matches blood cx - cont ceftriaxone day 2/7 then 7 days of keflex. - monitor WBC as it has increased - repeat blood cx neg to date - urology consult pending 2- DM: we don't carry novolog mix 75/25. - cont SSI - cont levemir 10 units 3- ROSALVA : likely prerenal in etiology due to decreased po intake by history. - reanl US with no obstruction , or hydro - cont IVF. Cr improved - hold lisinopril 4- HTN: cont to hold lisinopril and cont norvasc for now 5- Tinea pedis and tinea Cruris : nystatin powder dispo: HLOC Visit type - Emergency Visit Emergency Visit: Yes ED Registration Date: 04/05/17 Care time: The patient presented to the Emergency Department on the above date and was hospitalized for further evaluation of their emergent condition. - New Patient This patient is new to me today: No - Critical Care Critical Care patient: No
[2017-04-07] MEDS ORDERED: INSULIN (NOVOLOG) ASPART 100 UNITS/ML 10ML VIAL ONE (17:20)
[2017-04-07] MEDS: ATORVASTATIN CA 10 MG TABLET (FP) PO SCH (21:57)
[2017-04-08] MEDS: HEPARIN NA (PORCINE) 5,000 UNITS/ML 1ML VIAL SQ SCH ×3 (06:44→22:30)
[2017-04-08] MEDS: INSULIN DETEMIR 100 UNITS/ML MDV SQ SCH (06:45)
[2017-04-08] MEDS: INSULIN SLIDING SCALE (NOVOLOG) 1 VIAL SQ SCH ×4 (06:45→22:31)
[2017-04-08] MEDS ORDERED: INSULIN (NOVOLOG) ASPART 100 UNITS/ML 10ML VIAL ONE (07:07)
[2017-04-08 07:59] LABS: MCH 28.1 pg (25.7-33.7); MCHC 33.7 g/dl (32.0-35.9); MEAN CELL VOLUME 83.3 fl (80-96); MEAN PLT VOLUME 8.8 fl (7.5-11.1); PLATELET COUNT 342 K/MM3 (134-434); RDW 15.3 % (11.9-15.9); WHITE BLOOD COUNT 15.4 K/mm3 (4.0-10.0)
[2017-04-08 08:32] LABS: CALCIUM 8.3 mg/dL (8.5-10.1); COCKROFT - GAULT 178.84; CREATININE 1.4 mg/dL (0.7-1.3)
[2017-04-08] MEDS: PANTOPRAZOLE 40 MG TABLET (FP) PO SCH ×2 (10:31→22:30)
[2017-04-08] MEDS: amLODIPine BESYLATE 5 MG TABLET (FP) PO SCH (10:31)
[2017-04-08] MEDS: NYSTATIN POWDER 100,000 UNITS/GM - 15 GM TOPICAL POWDER TP SCH (10:31)
[2017-04-08] MEDS: CEFTRIAXONE 100 ML IVPB SCH (10:31)
--- NOTE | 2017-04-08 11:07 | PN ---
Progress Note, Physician History of Present Illness: Awake, alert Offers no complaints No c/o dysuria/ hematuria No c/o fever/chills Tolerating antibiotics Blood c/s GPCCL x 1 bottle - Current Medication List Current Medications: Active Medications Acetaminophen (Tylenol -) 650 mg PO Q4H PRN PRN Reason: FEVER OR PAIN Amlodipine Besylate (Norvasc -) 5 mg PO DAILY [facility] Last Admin: 04/08/17 10:31 Dose: 5 mg Atorvastatin Calcium (Lipitor -) 20 mg PO HS [facility] Last Admin: 04/07/17 21:57 Dose: 20 mg Heparin Sodium (Porcine) (Heparin -) 5,000 unit SQ TID [facility] Last Admin: 04/08/17 06:44 Dose: 5,000 unit Ceftriaxone Sodium (Rocephin 2gm Ivpb (Pre-Docked)) 100 mls @ 200 mls/hr IVPB DAILY [facility] Last Admin: 04/08/17 10:31 Dose: 200 mls/hr Insulin Aspart (Novolog Vial Sliding Scale -) 1 vial SQ ACHS [facility] PRN Reason: Protocol Last Admin: 04/08/17 06:45 Dose: 2 units Insulin Detemir (Levemir Vial) 10 units SQ ACBK [facility] Last Admin: 04/08/17 06:45 Dose: 10 unit Nystatin (Nystop Powder -) 1 applic TP DAILY [facility] Last Admin: 04/08/17 10:31 Dose: 1 applic Ondansetron HCl (Zofran Injection) 4 mg IVPB Q6H PRN PRN Reason: NAUSEA Pantoprazole Sodium (Protonix -) 40 mg PO BID [facility] Last Admin: 04/08/17 10:31 Dose: 40 mg - Objective Vital Signs: Vital Signs Temperature 97.6 F 04/08/17 06:35 Pulse Rate 82 04/08/17 06:35 Respiratory Rate 20 04/08/17 06:35 Blood Pressure 132/74 04/08/17 06:35 O2 Sat by Pulse Oximetry (%) 98 04/07/17 21:00 Constitutional: Yes: No Distress Eyes: Yes: Conjunctiva Clear Cardiovascular: Yes: Regular Rate and Rhythm, S1, S2 Respiratory: Yes: CTA Bilaterally Gastrointestinal: Yes: Normal Bowel Sounds, Soft, Abdomen, Obese. No: Tenderness Edema: Yes Labs: CBC, BMP 04/08/17 06:45 04/08/17 06:45 INR, PTT INR 1.05 (0.82-1.09) 04/05/17 00:11 Assessment/Plan UTI/ Sepsis secondary to UTI Gram Negative bacteremia PCN allergy + BC GPCCL 1 bottle - probable contaminant Continue ceftriaxone Repeat BC obtained Await identification of blood isolate
--- NOTE | 2017-04-08 13:49 | CONSULT ---
Consult Consult Specialty:: urology Referred by:: gucci Reason for Consultation:: recurrent UTI - History of Present Illness Chief Complaint: recurrent UTI History of Present Illness: 42 year old male with seven months of recurrent UTIs. He reports that once they are treated he feels better but soon has recurrent abdominal pain and distension. He cannot "access" his penis/rectum to clean properly. In addition all of his urine cultures have been collected via clean catch, so the accuracy of them is in question. - History Source History Provided By: Patient - Past Medical History Renal/: Yes: UTI - Alcohol/Substance Use Hx Alcohol Use: No - Smoking History Smoking history: Never smoked Have you smoked in the past 12 months: No Home Medications - Allergies Allergies/Adverse Reactions: Allergies Allergy/AdvReac Type Severity Reaction Status Date / Time Penicillins Allergy Verified 04/04/17 21:02 piperacillin sodium Allergy Verified 04/04/17 21:02 [From Zosyn] tazobactam sodium Allergy Verified 04/04/17 21:02 [From Zosyn] - Home Medications Home Medications: Ambulatory Orders Atorvastatin Ca [Lipitor] 10 mg PO DAILY 11/16/16 Insulin Lispro Protamin/Lispro [Humalog Mix 75-25 Kwikpen] 20 unit SQ BID Lisinopril 5 mg PO DAILY 11/16/16 Metformin HCl [Metformin HCl ER] 2 tab PO DAILY 11/16/16 Famotidine [Pepcid -] 40 mg PO BID #14 tablet 04/03/17 Ondansetron [Zofran Odt -] 4 mg SL Q6H PRN #30 od.tablet 04/03/17 Pantoprazole Sodium [Protonix -] 40 mg PO BID #14 tablet.ec 04/03/17 Review of Systems - Review of Systems Genitourinary: reports: Burning Physical Exam Vital Signs: Vital Signs Temperature 97.3 F L 04/08/17 10:00 Pulse Rate 92 H 04/08/17 10:00 Respiratory Rate 20 04/08/17 10:00 Blood Pressure 153/83 04/08/17 10:00 O2 Sat by Pulse Oximetry (%) 94 L 04/08/17 09:00 Constitutional: Yes: Obese Gastrointestinal: Yes: Abdomen, Obese Renal/: No: CVA Tenderness - Left, CVA Tenderness - Right, Gonzales Present ( unable to adequately examine due to morbid obesity) Labs: CBC, BMP 04/08/17 06:45 04/08/17 06:45 Problem List - Problems (1) UTI (urinary tract infection) Assessment/Plan: recommend CT scan,. need catheterized urine culture for more accurate assessment. cystoscopy as outpatient. Code(s): N39.0 - URINARY TRACT INFECTION, SITE NOT SPECIFIED
[2017-04-08 14:08] LABS: PLATELET ESTIMATE ADEQUATE (NORMAL)
--- NOTE | 2017-04-08 14:26 | MSN ---
Progress Note (SOAP) - Subjective Chief Complaint: Positive blood culture History of Present Illness: This is a 42yo M who presented to our ER due to positive blood cultures taken 3 days prior to his D/C. He was originally on levofloxacin but cultures grew E coli resistant to ampicillin and levofloxacin. He was switched to aztreonam first, then ID switched pt to ceftriaxone. Today he denies chest pain, SOB, N/V, fevers, chills,lightheadedness, dizziness , dysuria, hematuria, or bowel movement abnormalities. He is asking about a potential d/c date. - Current Medications Current Medications: Active Medications Acetaminophen (Tylenol -) 650 mg PO Q4H PRN PRN Reason: FEVER OR PAIN Amlodipine Besylate (Norvasc -) 5 mg PO DAILY [facility] Last Admin: 04/08/17 10:31 Dose: 5 mg Atorvastatin Calcium (Lipitor -) 20 mg PO HS [facility] Last Admin: 04/07/17 21:57 Dose: 20 mg Heparin Sodium (Porcine) (Heparin -) 5,000 unit SQ TID [facility] Last Admin: 04/08/17 06:44 Dose: 5,000 unit Ceftriaxone Sodium (Rocephin 2gm Ivpb (Pre-Docked)) 100 mls @ 200 mls/hr IVPB DAILY [facility] Last Admin: 04/08/17 10:31 Dose: 200 mls/hr Insulin Aspart (Novolog Vial Sliding Scale -) 1 vial SQ ACHS [facility] PRN Reason: Protocol Last Admin: 04/08/17 12:42 Dose: 2 units Insulin Detemir (Levemir Vial) 10 units SQ ACBK [facility] Last Admin: 04/08/17 06:45 Dose: 10 unit Nystatin (Nystop Powder -) 1 applic TP DAILY [facility] Last Admin: 04/08/17 10:31 Dose: 1 applic Ondansetron HCl (Zofran Injection) 4 mg IVPB Q6H PRN PRN Reason: NAUSEA Pantoprazole Sodium (Protonix -) 40 mg PO BID [facility] Last Admin: 04/08/17 10:31 Dose: 40 mg - Objective Vital Signs: Vital Signs Temperature 97.3 F L 04/08/17 10:00 Pulse Rate 92 H 04/08/17 10:00 Respiratory Rate 20 04/08/17 10:00 Blood Pressure 153/83 04/08/17 10:00 O2 Sat by Pulse Oximetry (%) 94 L 04/08/17 09:00 Constitutional: Yes: No Distress, Calm, Obese Cardiovascular: Yes: Regular Rate and Rhythm. No: Tachycardia, Gallop, Murmur, Rub, S3, S4 Respiratory: Yes: WNL, Regular, CTA Bilaterally. No: Rales, SOB, Tachypnea Gastrointestinal: Yes: WNL, Abdomen, Obese. No: Distention, Tenderness Genitourinary: Yes: WNL. No: Anuria, CVA Tenderness - Left, CVA Tenderness - Right, Hematuria, Incontinence Extremities: Yes: Other (b/l LE edema, dry skin) Peripheral Pulses WNL: Yes Edema: Yes Edema: LLE: 3+, RLE: 3+ Neurological: Yes: WNL, Alert, Oriented Psychiatric: Yes: WNL, Alert, Oriented Labs Lab Results: CBC, BMP 04/08/17 06:45 04/08/17 06:45 Laboratory Results - last 24 hr 04/07/17 04/07/17 04/08/17 16:56 21:09 06:39 WBC RBC Hgb Hct MCV MCHC RDW Plt Count MPV Neutrophils % Lymphocytes % Monocytes % Band Neutrophils Myelocytes Differential Comment Platelet Estimate Sodium Potassium Chloride Carbon Dioxide Anion Gap BUN Creatinine POC Glucometer 184 162 190 Random Glucose Calcium 04/08/17 04/08/17 04/08/17 06:45 06:45 12:03 WBC 15.4 H RBC 4.04 Hgb 11.3 L Hct 33.7 L MCV 83.3 MCHC 33.7 RDW 15.3 Plt Count 342 MPV 8.8 Neutrophils % 61.0 Lymphocytes % 23.0 D Monocytes % 8.0 Band Neutrophils 1.0 D Myelocytes 5 H D Differential Comment Manual diff done Platelet Estimate Adequate Sodium 139 Potassium 3.9 Chloride 101 Carbon Dioxide 28 Anion Gap 10 BUN 18 Creatinine 1.4 H POC Glucometer 197 Random Glucose 164 H Calcium 8.3 L Microbiology 04/05/17 00:12 Blood - Peripheral Venous Blood Culture - Preliminary Pending Organism 04/05/17 00:12 Blood - Peripheral Venous Blood Culture - Preliminary NO GROWTH OBTAINED AFTER 72 HOURS, INCUBATION TO CONTINUE FOR 2 DAYS. 04/05/17 01:11 Urine - Urine Clean Catch Urine Culture - Final Escherichia Coli Last Vital Signs Temp Pulse Resp BP Pulse Ox 97.3 F L 92 H 20 153/83 94 L 04/08/17 10:00 04/08/17 10:00 04/08/17 10:00 04/08/17 10:00 04/08/17 09:00 Assessment/Plan 42yo M with PMH of HTN, HLD, DM Type 2, cellulitis, and morbid obesity w/ chronic lower extremity lymphedema presents to [facility] for gram negative bacteremia. Gram (-) Bacteremia 2/2 UTI -UTI is source of bacteremia - Urine culture and blood culture grew gram (-) organisms -Pt on ceftriaxone day 3/7. Will continue pt on cephalexin x7d at end of ceftriaxone treatment. -Urine grew E Coli resistant to ampicillin and levofloxacin. -Blood culture grew gram (+) cocci in clusters in 1/2 bottles. Most likely due to contamination. Will order new blood cultures -Dr Lopez, Urology, recommended catheterized urine culture, CT scan and outpatient cystoscopy. -afebrile & normotensive -pt's WBC trending downwards, will follow ROSALVA -likely secondary to UTI and decreased oral intake -BUN 18 and Cr 1.4. trending downwards -all nephrotoxic meds have been d/c Hyponatremia -resolved now. Na is 139 - will follow Hypokalemia -resolved. K is 3.9. -Will follow DM Type 2 -ISS -levemir 10 units SQ ACBK -BGM ACHS HTN -switch Lisinopril 5mg PO daily to amlodipine 5mg PO qd to prevent renal injury HLD -Continue Lipitor 20mg PO HS Tinea pedis and tinea cruris -nystatin powder Morbid obesity -importance of weight loss stressed to patient Prophylaxis/FEN -Heparin -SCD's -Protonix 40mg BID PO -IVF NS@100cc/hr -Monitor electrolytes -diabetic diet
--- NOTE | 2017-04-08 16:58 | PN ---
Teaching Attending Note Name of Resident: Silas Tena ATTENDING PHYSICIAN STATEMENT I saw and evaluated the patient. I reviewed the resident's note and discussed the case with the resident. I agree with the resident's findings and plan as documented. SUBJECTIVE: no abd pain, has concerns about recurrent UTIS OBJECTIVE: NAD , sitting in chair CV: RRR Lungs: CTAB abd : obese , NT, N LBS Ext ; thick skin with chronic skin changes, slight pitting edema on legs . very minimal greenish discharge form posterior R leg on dressing, no wounds . ASSESSMENT AND PLAN: 41 y/o male with h/o HTN, IDDM, Lymphedema , LE wounds, and recent admission for urinary retention , and wound infection , recent ESBL infection of wounds , who presented after being called due to blood cx growing G- bacilli 1- Bacteremia with E coli from urinary source. urine cx matches blood cx repeat blood cx with G+ cocci in clusters in one set only, is likely staph epidermidies representing contamination - cont ceftriaxone day 3/7 then 7 days of keflex. - monitor WBC ( better today ) . no fever - urology consult appreciated. CT scan of abd ordered , not sure if pt can fit in machine 2- DM: - cont SSI - cont levemir 10 units . 3- ROSALVA : likely prerenal in etiology due to decreased po intake by history. - reanl US with no obstruction , or hydro - cont IVF. Cr improved - cont to hold lisinopril 4- HTN: cont to hold lisinopril and cont norvasc for now 5- Tinea pedis and tinea Cruris : nystatin powder dispo : HLOC
--- NOTE | 2017-04-08 19:37 | PN ---
Physical Exam: SUBJECTIVE: Patient seen and examined at bed side this morning. Complained of upper left and right quadrant of abdomen and mentioned it could have been positional since he sleeps on the chair every night. No other complaints. Denies abdominal pain, nausea, vomiting, chest pain, sob, cough, palpitation, hematuria, burning urination or any urinary symptoms. No acute overnight events. OBJECTIVE: Vital Signs Period Temp Pulse Resp BP Sys/Eric Pulse Ox Last 24 Hr 97.3 F-98.5 F 81-92 20-20 132-159/74-89 94-98 GENERAL: The patient is a morbidly obese patient, sitting comfortably in a chair , awake, alert, and fully oriented, in no acute distress. HEAD: Normal with no signs of trauma. EYES:EOM intact, no pallor or icterus. ENT: Ears normal, nares patent, oropharynx clear without exudates, moist mucous membranes. NECK: Trachea midline, full range of motion, supple. LUNGS: Breath sounds equal, clear to auscultation bilaterally, no wheezes, no crackles, no accessory muscle use. HEART: Regular rate and rhythm, S1, S2 without murmur, rub or gallop. ABDOMEN: Slight erythema under the abdominal folds, Soft, tenderness on the right and left upper quadrant, nondistended, normoactive bowel sounds, no guarding, no rebound, no hepatosplenomegaly, no masses. UPPER EXTREMITIES: 2+ pulses, warm, well-perfused, no edema. LOWER EXTREMITIES: 2+ pulses, warm, well-perfused. B/L LE lymphedema (>2years) with chronic superficial ulcers draining minimal serosanguinous fluid on the right posterior side of LE; fungal infection in between the toes in b/l 4th- 5th digits. Dressing in place in B/L LE. NEUROLOGICAL: Cranial nerves II through XII grossly intact. Normal speech, gait not observed. PSYCH: Normal mood, normal affect. SKIN: Warm, dry, normal turgor, no rashes or lesions noted Laboratory Results - last 24 hr 04/07/17 04/08/17 04/08/17 21:09 06:39 06:45 WBC 15.4 H RBC 4.04 Hgb 11.3 L Hct 33.7 L MCV 83.3 MCHC 33.7 RDW 15.3 Plt Count 342 MPV 8.8 Neutrophils % 61.0 Lymphocytes % 23.0 D Monocytes % 8.0 Band Neutrophils 1.0 D Myelocytes 5 H D Differential Comment Manual diff done Platelet Estimate Adequate Sodium Potassium Chloride Carbon Dioxide Anion Gap BUN Creatinine POC Glucometer 162 190 Random Glucose Calcium 04/08/17 04/08/17 04/08/17 06:45 12:03 18:11 WBC RBC Hgb Hct MCV MCHC RDW Plt Count MPV Neutrophils % Lymphocytes % Monocytes % Band Neutrophils Myelocytes Differential Comment Platelet Estimate Sodium 139 Potassium 3.9 Chloride 101 Carbon Dioxide 28 Anion Gap 10 BUN 18 Creatinine 1.4 H POC Glucometer 197 165 Random Glucose 164 H Calcium 8.3 L Active Medications Generic Name Dose Route Start Last Admin Trade Name Freq PRN Reason Stop Dose Admin Acetaminophen 650 mg 04/05/17 03:37 Tylenol - PO Q4H PRN FEVER OR PAIN Amlodipine Besylate 5 mg 04/05/17 10:00 04/08/17 10:31 Norvasc - PO 5 mg DAILY [facility] Administration Atorvastatin Calcium 20 mg 04/05/17 22:00 04/07/17 21:57 Lipitor - PO 20 mg HS [facility] Administration Heparin Sodium (Porcine) 5,000 unit 04/05/17 06:00 04/08/17 14:56 Heparin - SQ 5,000 unit TID [facility] Administration Ceftriaxone Sodium 100 mls @ 200 mls/hr 04/06/17 10:30 04/08/17 10:31 Rocephin 2gm Ivpb (Pre-Docked) IVPB 200 mls/hr DAILY [facility] Administration Insulin Aspart 1 vial 04/05/17 07:00 04/08/17 18:31 Novolog Vial Sliding Scale - SQ 2 units ACHS [facility] Administration Protocol Insulin Detemir 10 units 04/06/17 10:39 04/08/17 06:45 Levemir Vial SQ 10 unit ACBK [facility] Administration Nystatin 1 applic 04/06/17 10:00 04/08/17 10:31 Nystop Powder - TP 1 applic DAILY [facility] Administration Ondansetron HCl 4 mg 04/05/17 03:37 Zofran Injection IVPB Q6H PRN NAUSEA Pantoprazole Sodium 40 mg 04/05/17 10:00 04/08/17 10:31 Protonix - PO 40 mg BID [facility] Administration ASSESSMENT/PLAN: 04/05/2017: Renal Ultrasound: Both kidneys are enlarged without the evidence of hydronephrosis or stones. Fatty liver vs hepatocellular disease. please correlate with liver enzymes. ASSESSMENT/PLAN: Patient is a 42 year old male with significant PMH of HTN, HLD, DM, Morbid obesity w/ chronic lower extremity lymphedema who presents to ED for positive blood culture. # Gram negative bacteremia from UTI Urine culture and blood culture grew gram negative bacteria - Patient was seen in the ED 2 (04/03/2017) days ago for evaluation of nausea, vomiting and abdominal pain. He was sent home on famotidine, pantoprazole and zofran and to f/up with GI doctor. Since patients blood culture grew gram negative bacteria, he was asked to come back to the hospital for further investigation and IV antibiotics. - On admission, patient was afebrile & normotensive - Continue Levaquin 750mg IVPB daily started (patient has multiple AB allergies) -IVF NS @100cc/hr -lactic acid normal -avoid nephrotoxic meds -Urology consult appreciated (Dr Lopez). Will follow his recommendations to catheterize and send for urine culture, CT scan and outpatient cystoscopy. However, CT scan is not possible due to obesity (BMI of 75) # Acute Kidney Injury-resolving Likely prerenal - USG of kidney and bladder was done to r/o obstructive uropathy: which showed B /L enlarged Kidneys without any hydronephrosis - post void bladder scan 150 last week - cont IVF - hold lisinopril -avoid nephrotoxic drugs -BUN 18 and Cr 1.4. trending downwards #Hypokalmia-resolved -K-3.9 # Hypovolemic Hyponatremia-resoled Na-139 Continue IV fluids # Diabetes Mellitus -ISS -BGM ACHS -HbA1C 7.7 -Changed Levemir to 10 U daily, will adjust the dose according to the blood sugar level. -Hold Metformin -Patient said he takes Inj Exenatide once a week which is not available at our pharmacy. #Hypertension- stable / Hyperlipidemia - Lisinopril 5mg on hold and started Amlodipine 5mg Daily, Lipitor 10mg PO HS # Morbid obesity - Weight loss counseling -needs shuttle threader consult # FEN IV NS @ 100mls/hr Electrolytes to be repeated tomorrow Diabetic diet # Prophylaxis For DVT: Heparin 5000 IU TID For GI: Protonix 40mg BID PO # Code Status: Full Code # Dispo: Admitted in Med-Surg. Duration of stay unknown. Illness, Investigation and Plan of care explained to the patient. He verbalized understanding. Case seen and discussed with Dr. Klein. Visit type - Emergency Visit Emergency Visit: Yes ED Registration Date: 04/05/17 Care time: The patient presented to the Emergency Department on the above date and was hospitalized for further evaluation of their emergent condition. - New Patient This patient is new to me today: Yes Date on this admission: 04/08/17 - Critical Care Critical Care patient: No
[2017-04-08] MEDS: ATORVASTATIN CA 10 MG TABLET (FP) PO SCH (22:30)
[2017-04-09] MEDS: HEPARIN NA (PORCINE) 5,000 UNITS/ML 1ML VIAL SQ SCH ×3 (06:12→22:18)
[2017-04-09] MEDS: INSULIN DETEMIR 100 UNITS/ML MDV SQ SCH (06:13)
[2017-04-09] MEDS: INSULIN SLIDING SCALE (NOVOLOG) 1 VIAL SQ SCH ×4 (06:13→22:18)
[2017-04-09 07:49] LABS: MCH 27.4 pg (25.7-33.7); MCHC 32.7 g/dl (32.0-35.9); MEAN PLT VOLUME 8.8 fl (7.5-11.1); PLATELET COUNT 362 K/MM3 (134-434); RDW 15.7 % (11.9-15.9)
[2017-04-09 08:17] LABS: ALBUMIN 2.4 g/dl (3.4-5.0); CALCIUM 8.5 mg/dL (8.5-10.1)
[2017-04-09 08:20] LABS: BILIRUBIN,TOTAL 0.6 mg/dL (0.2-1.0); COCKROFT - GAULT 178.84; CREATININE 1.4 mg/dL (0.7-1.3); TOT PROT 6.7 g/dl (6.4-8.2)
--- NOTE | 2017-04-09 08:52 | PN ---
Physical Exam: SUBJECTIVE: Patient seen and examined at bed side this morning. Complained of upper left and right quadrant of abdomen yesterday which resolved today. No other complaints. Denies abdominal pain, nausea, vomiting, chest pain, sob, cough, palpitation, hematuria, burning urination or any urinary symptoms. Moved bowel one episode today. No acute overnight events. OBJECTIVE: Vital Signs Period Temp Pulse Resp BP Sys/Eric Pulse Ox Last 24 Hr 97.3 F-98.2 F 80-92 18-80 134-159/65-87 94-94 GENERAL: The patient is a morbidly obese patient, sitting comfortably in a chair , awake, alert, and fully oriented, in no acute distress. HEAD: Normal with no signs of trauma. EYES:EOM intact, no pallor or icterus. ENT: Ears normal, nares patent, oropharynx clear without exudates, moist mucous membranes. NECK: Trachea midline, full range of motion, supple. LUNGS: Breath sounds equal, clear to auscultation bilaterally, no wheezes, no crackles, no accessory muscle use. HEART: Regular rate and rhythm, S1, S2 without murmur, rub or gallop. ABDOMEN: Slight erythema under the abdominal folds, Soft, tenderness on the right and left upper quadrant, nondistended, normoactive bowel sounds, no guarding, no rebound, no hepatosplenomegaly, no masses. UPPER EXTREMITIES: 2+ pulses, warm, well-perfused, no edema. LOWER EXTREMITIES: 2+ pulses, warm, well-perfused. B/L LE lymphedema (>2years) with chronic superficial ulcers draining minimal serosanguinous fluid on the right posterior side of LE; fungal infection in between the toes in b/l 4th- 5th digits. Dressing in place in B/L LE. NEUROLOGICAL: Cranial nerves II through XII grossly intact. Normal speech, gait not observed. PSYCH: Normal mood, normal affect. SKIN: Warm, dry, normal turgor, no rashes or lesions noted Laboratory Results - last 24 hr 04/08/17 04/08/17 04/08/17 06:45 12:03 18:11 WBC RBC Hgb Hct MCV MCHC RDW Plt Count MPV Neutrophils % 61.0 Lymphocytes % 23.0 D Monocytes % 8.0 Band Neutrophils 1.0 D Myelocytes 5 H D Differential Comment Manual diff done Platelet Estimate Adequate Sodium Potassium Chloride Carbon Dioxide Anion Gap BUN Creatinine Creat Clearance w eGFR POC Glucometer 197 165 Random Glucose Calcium Total Bilirubin AST ALT Alkaline Phosphatase Total Protein Albumin 04/08/17 04/09/17 04/09/17 22:27 05:58 06:30 WBC 13.0 H RBC 4.08 Hgb 11.2 L Hct 34.3 L MCV 84.0 MCHC 32.7 RDW 15.7 Plt Count 362 MPV 8.8 Neutrophils % Lymphocytes % Monocytes % Band Neutrophils Myelocytes Differential Comment Platelet Estimate Sodium Potassium Chloride Carbon Dioxide Anion Gap BUN Creatinine Creat Clearance w eGFR POC Glucometer 167 165 Random Glucose Calcium Total Bilirubin AST ALT Alkaline Phosphatase Total Protein Albumin 04/09/17 06:30 WBC RBC Hgb Hct MCV MCHC RDW Plt Count MPV Neutrophils % Lymphocytes % Monocytes % Band Neutrophils Myelocytes Differential Comment Platelet Estimate Sodium 140 Potassium 4.2 Chloride 100 Carbon Dioxide 28 Anion Gap 12 BUN 17 Creatinine 1.4 H Creat Clearance w eGFR 55.05 POC Glucometer Random Glucose 168 H Calcium 8.5 Total Bilirubin 0.6 AST 26 D ALT 38 D Alkaline Phosphatase 73 Total Protein 6.7 Albumin 2.4 L Active Medications Generic Name Dose Route Start Last Admin Trade Name Freq PRN Reason Stop Dose Admin Acetaminophen 650 mg 04/05/17 03:37 Tylenol - PO Q4H PRN FEVER OR PAIN Amlodipine Besylate 5 mg 04/05/17 10:00 04/08/17 10:31 Norvasc - PO 5 mg DAILY NANCY Administration Atorvastatin Calcium 20 mg 04/05/17 22:00 04/08/17 22:30 Lipitor - PO 20 mg HS NANCY Administration Heparin Sodium (Porcine) 5,000 unit 04/05/17 06:00 04/09/17 06:12 Heparin - SQ 5,000 unit TID NANCY Administration Ceftriaxone Sodium 100 mls @ 200 mls/hr 04/06/17 10:30 04/08/17 10:31 Rocephin 2gm Ivpb (Pre-Docked) IVPB 200 mls/hr DAILY NANCY Administration Insulin Aspart 1 vial 04/05/17 07:00 04/09/17 06:13 Novolog Vial Sliding Scale - SQ 2 units ACHS NANCY Administration Protocol Insulin Detemir 10 units 04/06/17 10:39 04/09/17 06:13 Levemir Vial SQ 10 unit ACBK NANCY Administration Nystatin 1 applic 04/06/17 10:00 04/08/17 10:31 Nystop Powder - TP 1 applic DAILY NANCY Administration Ondansetron HCl 4 mg 04/05/17 03:37 Zofran Injection IVPB Q6H PRN NAUSEA Pantoprazole Sodium 40 mg 04/05/17 10:00 04/08/17 22:30 Protonix - PO 40 mg BID NANCY Administration 04/05/2017: Renal Ultrasound: Both kidneys are enlarged without the evidence of hydronephrosis or stones. Fatty liver vs hepatocellular disease. please correlate with liver enzymes. ASSESSMENT/PLAN: Patient is a 42 year old male with significant PMH of HTN, HLD, DM, Morbid obesity w/ chronic lower extremity lymphedema who presents to ED for positive blood culture. # Gram negative bacteremia from UTI Urine culture and blood culture grew gram negative bacteria - Patient was seen in the ED 2 (04/03/2017) days ago for evaluation of nausea, vomiting and abdominal pain. He was sent home on famotidine, pantoprazole and zofran and to f/up with GI doctor. Since patients blood culture grew gram negative bacteria, he was asked to come back to the hospital for further investigation and IV antibiotics. - On admission, patient was afebrile & normotensive - Continue IV Ceftriaxone Day 4 (patient has multiple AB allergies) -IVF NS @100cc/hr -lactic acid normal -avoid nephrotoxic meds -Urology consult appreciated (Dr Lopez). CT scan of abdomen/ pelvis and outpatient cystoscopy. However, CT scan at this hospital is not possible due to obesity (BMI of 75) # Acute Kidney Injury-resolving Likely prerenal - USG of kidney and bladder was done to r/o obstructive uropathy: which showed B /L enlarged Kidneys without any hydronephrosis - post void bladder scan 150 last week - cont IVF - hold lisinopril -avoid nephrotoxic drugs -BUN 18 and Cr 1.4. trending downwards #Hypokalmia-resolved -K-3.9 # Hypovolemic Hyponatremia-resoled Na-139 Continue IV fluids # Diabetes Mellitus -ISS -BGM ACHS -HbA1C 7.7 -Changed Levemir to 10 U daily, will adjust the dose according to the blood sugar level. -Hold Metformin -Patient said he takes Inj Exenatide once a week which is not available at our pharmacy. #Hypertension- stable / Hyperlipidemia - Lisinopril 5mg on hold and started Amlodipine 5mg Daily, Lipitor 10mg PO HS # Morbid obesity - Weight loss counseling -needs sports bookmaker consult # FEN IV NS @ 100mls/hr Electrolytes to be repeated tomorrow Diabetic diet # Prophylaxis For DVT: Heparin 5000 IU TID For GI: Protonix 40mg BID PO # Code Status: Full Code # Dispo: Admitted in Med-Surg. Duration of stay unknown. Illness, Investigation and Plan of care explained to the patient. He verbalized understanding. Case seen and discussed with Dr. Klein. Visit type - Emergency Visit Emergency Visit: Yes ED Registration Date: 04/05/17 Care time: The patient presented to the Emergency Department on the above date and was hospitalized for further evaluation of their emergent condition. - New Patient This patient is new to me today: No - Critical Care Critical Care patient: No
[2017-04-09] MEDS: PANTOPRAZOLE 40 MG TABLET (FP) PO SCH ×2 (10:20→22:18)
[2017-04-09] MEDS: NYSTATIN POWDER 100,000 UNITS/GM - 15 GM TOPICAL POWDER TP SCH (10:20)
[2017-04-09] MEDS: CEFTRIAXONE 100 ML IVPB SCH (10:20)
[2017-04-09] MEDS: amLODIPine BESYLATE 5 MG TABLET (FP) PO SCH (10:20)
--- NOTE | 2017-04-09 14:53 | PN ---
Progress Note, Physician History of Present Illness: No new complaint Afebrile Blood c/s micrococcus ( contaminant) - Current Medication List Current Medications: Active Medications Acetaminophen (Tylenol -) 650 mg PO Q4H PRN PRN Reason: FEVER OR PAIN Amlodipine Besylate (Norvasc -) 5 mg PO DAILY [facility] Last Admin: 04/09/17 10:20 Dose: 5 mg Atorvastatin Calcium (Lipitor -) 20 mg PO HS [facility] Last Admin: 04/08/17 22:30 Dose: 20 mg Heparin Sodium (Porcine) (Heparin -) 5,000 unit SQ TID [facility] Last Admin: 04/09/17 06:12 Dose: 5,000 unit Ceftriaxone Sodium (Rocephin 2gm Ivpb (Pre-Docked)) 100 mls @ 200 mls/hr IVPB DAILY [facility] Last Admin: 04/09/17 10:20 Dose: 200 mls/hr Insulin Aspart (Novolog Vial Sliding Scale -) 1 vial SQ ACHS [facility] PRN Reason: Protocol Last Admin: 04/09/17 12:52 Dose: Not Given Insulin Detemir (Levemir Vial) 10 units SQ ACBK [facility] Last Admin: 04/09/17 06:13 Dose: 10 unit Nystatin (Nystop Powder -) 1 applic TP DAILY [facility] Last Admin: 04/09/17 10:20 Dose: 1 applic Ondansetron HCl (Zofran Injection) 4 mg IVPB Q6H PRN PRN Reason: NAUSEA Pantoprazole Sodium (Protonix -) 40 mg PO BID [facility] Last Admin: 04/09/17 10:20 Dose: 40 mg - Objective Vital Signs: Vital Signs Temperature 97.3 F L 04/09/17 07:37 Pulse Rate 80 04/09/17 07:37 Respiratory Rate 80 H 04/09/17 07:37 Blood Pressure 134/76 04/09/17 07:37 O2 Sat by Pulse Oximetry (%) 94 L 04/08/17 20:43 Constitutional: Yes: No Distress, Obese Cardiovascular: Yes: Regular Rate and Rhythm Respiratory: Yes: CTA Bilaterally Gastrointestinal: Yes: Normal Bowel Sounds, Soft. No: Tenderness Labs: CBC, BMP 04/09/17 06:30 04/09/17 06:30 INR, PTT INR 1.05 (0.82-1.09) 04/05/17 00:11 Assessment/Plan UTI/ Sepsis secondary to UTI Gram Negative bacteremia PCN allergy + BC micrococcus= contaminant Continue ceftriaxone Complete 7d course IV antibiotics, then po keflex x 7d
--- NOTE | 2017-04-09 18:26 | PN ---
Teaching Attending Note Name of Resident: Alison Sanchez ATTENDING PHYSICIAN STATEMENT I saw and evaluated the patient. I reviewed the resident's note and discussed the case with the resident. I agree with the resident's findings and plan as documented. SUBJECTIVE: no fever or chills, feels better . OBJECTIVE: NAD , sitting in chair CV: RRR Lungs: CTAB Ext; thick skin with chronic skin changes, slight pitting edema on legs . very minimal greenish discharge form posterior R leg on dressing, no wounds . ASSESSMENT AND PLAN: 41 y/o male with h/o HTN, IDDM, Lymphedema , LE wounds, and recent admission for urinary retention , and wound infection , recent ESBL infection of wounds , who presented after being called due to blood cx growing G- bacilli 1- Bacteremia with E coli from urinary source. repeat blood cx with G+ cocci in clusters in one set only, is likely staph epidermidies representing contamination - cont ceftriaxone day 4/7 then 7 days of keflex. - monitor leukocytosis - urology follow up as out pt , for cystoscopy and CT scan - follow repeat blood cx from 04/08 2- DM: - cont SSI - cont levemir 10 units . at dc will resume home dose of novolog mix 75/25 3- ROSALVA : likely prerenal in etiology - reanl US with no obstruction , or hydro - cont IVF. Cr improved and stable - cont to hold lisinopril 4- HTN: cont to hold lisinopril and cont norvasc for now 5- Tinea pedis and tinea Cruris : nystatin powder dispo : HLOC
[2017-04-09] MEDS: ATORVASTATIN CA 10 MG TABLET (FP) PO SCH (22:18)
[2017-04-10] MEDS: HEPARIN NA (PORCINE) 5,000 UNITS/ML 1ML VIAL SQ SCH ×3 (06:28→22:21)
[2017-04-10] MEDS: INSULIN DETEMIR 100 UNITS/ML MDV SQ SCH (06:30)
[2017-04-10] MEDS: INSULIN SLIDING SCALE (NOVOLOG) 1 VIAL SQ SCH ×4 (06:30→22:21)
[2017-04-10] MEDS ORDERED: INSULIN DETEMIR 100 UNITS/ML MDV SQ ONE (07:06)
[2017-04-10] MEDS ORDERED: INSULIN (NOVOLOG) ASPART 100 UNITS/ML 10ML VIAL ONE (07:06)
[2017-04-10 07:36] LABS: MCH 28.1 pg (25.7-33.7); MCHC 33.2 g/dl (32.0-35.9); MEAN CELL VOLUME 84.5 fl (80-96); MEAN PLT VOLUME 8.9 fl (7.5-11.1); PLATELET COUNT 368 K/MM3 (134-434); RDW 15.7 % (11.9-15.9); WHITE BLOOD COUNT 11.4 K/mm3 (4.0-10.0)
[2017-04-10 08:20] LABS: ALBUMIN 2.6 g/dl (3.4-5.0); BILIRUBIN,TOTAL 0.4 mg/dL (0.2-1.0); CALCIUM 8.5 mg/dL (8.5-10.1); COCKROFT - GAULT 178.84; CREATININE 1.4 mg/dL (0.7-1.3); TOT PROT 7.1 g/dl (6.4-8.2)
--- NOTE | 2017-04-10 08:45 | PN ---
Teaching Attending Note Name of Resident: Alison Sanchez ATTENDING PHYSICIAN STATEMENT I saw and evaluated the patient. I reviewed the resident's note and discussed the case with the resident. I agree with the resident's findings and plan as documented. SUBJECTIVE: Patient is sitting on the chair with no acute distress. No fever or chills, no shortness of breath. OBJECTIVE: Vital Signs Temperature 98.1 F 04/10/17 06:00 Pulse Rate 81 04/10/17 06:00 Respiratory Rate 20 04/10/17 06:00 Blood Pressure 131/75 04/10/17 06:00 O2 Sat by Pulse Oximetry (%) 93 L 04/09/17 21:00 CBCD WBC 11.4 K/mm3 (4.0-10.0) H 04/10/17 06:15 RBC 4.10 M/mm3 (4.00-5.60) 04/10/17 06:15 Hgb 11.5 GM/dL (11.7-16.9) L 04/10/17 06:15 Hct 34.7 % (35.4-49) L 04/10/17 06:15 MCV 84.5 fl (80-96) 04/10/17 06:15 MCHC 33.2 g/dl (32.0-35.9) 04/10/17 06:15 RDW 15.7 % (11.9-15.9) 04/10/17 06:15 Plt Count 368 K/MM3 (134-434) 04/10/17 06:15 MPV 8.9 fl (7.5-11.1) 04/10/17 06:15 CMP Sodium 137 mmol/L (136-145) 04/10/17 06:15 Potassium 4.5 mmol/L (3.5-5.1) 04/10/17 06:15 Chloride 102 mmol/L (98-107) 04/10/17 06:15 Carbon Dioxide 27 mmol/L (21-32) 04/10/17 06:15 Anion Gap 8 (8-16) 04/10/17 06:15 BUN 17 mg/dL (7-18) 04/10/17 06:15 Creatinine 1.4 mg/dL (0.7-1.3) H 04/10/17 06:15 Creat Clearance w eGFR 55.05 (>60) 04/10/17 06:15 Random Glucose 202 mg/dL (74-106) H D 04/10/17 06:15 Calcium 8.5 mg/dL (8.5-10.1) 04/10/17 06:15 Total Bilirubin 0.4 mg/dL (0.2-1.0) D 04/10/17 06:15 AST 24 U/L (15-37) 04/10/17 06:15 ALT 37 U/L (12-78) 04/10/17 06:15 Alkaline Phosphatase 87 U/L (45-117) 04/10/17 06:15 Total Protein 7.1 g/dl (6.4-8.2) 04/10/17 06:15 Albumin 2.6 g/dl (3.4-5.0) L 04/10/17 06:15 CARDIAC ENZYMES Creatine Kinase 141 IU/L (39-308) 04/05/17 02:00 Troponin I < 0.02 ng/ml (0.00-0.05) 04/05/17 02:00 Current Medications Generic Name Dose Route Start Last Admin Trade Name Freq PRN Reason Stop Dose Admin Acetaminophen 650 mg 04/05/17 03:37 Tylenol - PO Q4H PRN FEVER OR PAIN Amlodipine Besylate 5 mg 04/05/17 10:00 04/09/17 10:20 Norvasc - PO 5 mg DAILY NANCY Administration Atorvastatin Calcium 20 mg 04/05/17 22:00 04/09/17 22:18 Lipitor - PO 20 mg HS NANCY Administration Heparin Sodium (Porcine) 5,000 unit 04/05/17 06:00 04/10/17 06:28 Heparin - SQ 5,000 unit TID NANCY Administration Ceftriaxone Sodium 100 mls @ 200 mls/hr 04/06/17 10:30 04/09/17 10:20 Rocephin 2gm Ivpb (Pre-Docked) IVPB 200 mls/hr DAILY NANCY Administration Insulin Aspart 1 vial 04/05/17 07:00 04/10/17 06:30 Novolog Vial Sliding Scale - SQ 4 units ACHS NANCY Administration Protocol Insulin Detemir 10 units 04/06/17 10:39 04/10/17 06:30 Levemir Vial SQ 10 unit ACBK NANCY Administration Nystatin 1 applic 04/06/17 10:00 04/09/17 10:20 Nystop Powder - TP 1 applic DAILY NANCY Administration Ondansetron HCl 4 mg 04/05/17 03:37 Zofran Injection IVPB Q6H PRN NAUSEA Pantoprazole Sodium 40 mg 04/05/17 10:00 04/09/17 22:18 Protonix - PO 40 mg BID NANCY Administration Home Medications Medication Instructions Recorded Atorvastatin Ca [Lipitor] 10 mg PO DAILY 11/16/16 Insulin Lispro Protamin/Lispro 20 unit SQ BID 11/16/16 [Humalog Mix 75-25 Kwikpen] Lisinopril 5 mg PO DAILY 11/16/16 Metformin HCl [Metformin HCl ER] 2 tab PO DAILY 11/16/16 Famotidine [Pepcid -] 40 mg PO BID #14 tablet 04/03/17 Ondansetron [Zofran Odt -] 4 mg SL Q6H PRN #30 od.tablet 04/03/17 Pantoprazole Sodium [Protonix -] 40 mg PO BID #14 tablet.ec 04/03/17 EXTREMETIES: Lower extremities Lymphedema positive for georgina bandage BL Microbiology 04/05/17 00:12 Blood - Peripheral Venous Blood Culture - Preliminary Gram Positive Cocci 04/08/17 08:57 Blood - Peripheral Venous Blood Culture - Preliminary NO GROWTH OBTAINED AFTER 48 HOURS, INCUBATION TO CONTINUE FOR 3 DAYS. 04/08/17 08:50 Blood - Peripheral Venous Blood Culture - Preliminary NO GROWTH OBTAINED AFTER 48 HOURS, INCUBATION TO CONTINUE FOR 3 DAYS. 04/05/17 00:12 Blood - Peripheral Venous Blood Culture - Final NO GROWTH AFTER 5 DAYS INCUBATION 04/05/17 01:11 Urine - Urine Clean Catch Urine Culture - Final Escherichia Coli ASSESSMENT AND PLAN: Patient is a 41 y/o male with h/o HTN, IDDM, Lymphedema , LE wounds, with recent admission for urinary retention , and wound infection , recent ESBL infection of wounds , who presented after being called due to blood cx growing G- bacilli #Acute UTI due to E.Coli sensitive to Rocephin will continue. as per ID Complete 7d course IV antibiotics (05/08 today) , then po keflex x 7d; Patient is allergic to PCN # Sepsis due to UTI continue IV antibiotic , WBC is trending down will repeat in am - urology follow up as out pt , for cystoscopy and CT scan .Blood culture ; one set is positive for gram positive cocci = contaminant # DM: cont SSI , cont levemir 10 units . at dc will resume home dose of novolog mix 75/25 # ROSALVA : reanl US with no obstruction , or hydro . cont IVF. Cr improved and stable , hold lisinopril for now # HTN: cont to hold lisinopril and cont norvasc for now # Tinea pedis and tinea Cruris : nystatin powder continue DVT Px: Heparin sq
--- NOTE | 2017-04-10 08:57 | PN ---
Physical Exam: SUBJECTIVE: Patient seen and examined at bed side this morning. No other complaints. Denies abdominal pain, nausea, vomiting, chest pain, sob, cough, palpitation, hematuria, burning urination or any urinary symptoms. No acute overnight events. OBJECTIVE: Vital Signs Period Temp Pulse Resp BP Sys/Eric Pulse Ox Last 24 Hr 98.1 F-98.7 F 21-86 20-20 131-150/67-78 93-93 GENERAL: The patient is a morbidly obese patient, sitting comfortably in a chair , awake, alert, and fully oriented, in no acute distress. HEAD: Normal with no signs of trauma. EYES:EOM intact, no pallor or icterus. ENT: Ears normal, nares patent, oropharynx clear without exudates, moist mucous membranes. NECK: Trachea midline, full range of motion, supple. LUNGS: Breath sounds equal, clear to auscultation bilaterally, no wheezes, no crackles, no accessory muscle use. HEART: Regular rate and rhythm, S1, S2 without murmur, rub or gallop. ABDOMEN: Slight erythema under the abdominal folds, Soft, tenderness on the right and left upper quadrant, nondistended, normoactive bowel sounds, no guarding, no rebound, no hepatosplenomegaly, no masses. UPPER EXTREMITIES: 2+ pulses, warm, well-perfused, no edema. LOWER EXTREMITIES: 2+ pulses, warm, well-perfused. B/L LE lymphedema (>2years) with chronic superficial ulcers draining minimal serosanguinous fluid on the right posterior side of LE; fungal infection in between the toes in b/l 4th- 5th digits. Dressing in place in B/L LE. NEUROLOGICAL: Cranial nerves II through XII grossly intact. Normal speech, gait not observed. PSYCH: Normal mood, normal affect. SKIN: Warm, dry, normal turgor, no rashes or lesions noted Laboratory Results - last 24 hr 04/09/17 04/09/17 04/09/17 12:50 18:20 22:08 WBC RBC Hgb Hct MCV MCHC RDW Plt Count MPV Sodium Potassium Chloride Carbon Dioxide Anion Gap BUN Creatinine Creat Clearance w eGFR POC Glucometer 128 186 212 Random Glucose Calcium Total Bilirubin AST ALT Alkaline Phosphatase Total Protein Albumin 04/10/17 04/10/17 04/10/17 06:08 06:15 06:15 WBC 11.4 H RBC 4.10 Hgb 11.5 L Hct 34.7 L MCV 84.5 MCHC 33.2 RDW 15.7 Plt Count 368 MPV 8.9 Sodium 137 Potassium 4.5 Chloride 102 Carbon Dioxide 27 Anion Gap 8 BUN 17 Creatinine 1.4 H Creat Clearance w eGFR 55.05 POC Glucometer 207 Random Glucose 202 H D Calcium 8.5 Total Bilirubin 0.4 D AST 24 ALT 37 Alkaline Phosphatase 87 Total Protein 7.1 Albumin 2.6 L Active Medications Generic Name Dose Route Start Last Admin Trade Name Freq PRN Reason Stop Dose Admin Acetaminophen 650 mg 04/05/17 03:37 Tylenol - PO Q4H PRN FEVER OR PAIN Amlodipine Besylate 5 mg 04/05/17 10:00 04/09/17 10:20 Norvasc - PO 5 mg DAILY NANCY Administration Atorvastatin Calcium 20 mg 04/05/17 22:00 04/09/17 22:18 Lipitor - PO 20 mg HS NANCY Administration Heparin Sodium (Porcine) 5,000 unit 04/05/17 06:00 04/10/17 06:28 Heparin - SQ 5,000 unit TID NANCY Administration Ceftriaxone Sodium 100 mls @ 200 mls/hr 04/06/17 10:30 04/09/17 10:20 Rocephin 2gm Ivpb (Pre-Docked) IVPB 200 mls/hr DAILY NANCY Administration Insulin Aspart 1 vial 04/05/17 07:00 04/10/17 06:30 Novolog Vial Sliding Scale - SQ 4 units ACHS NANCY Administration Protocol Insulin Detemir 10 units 04/06/17 10:39 04/10/17 06:30 Levemir Vial SQ 10 unit ACBK NANCY Administration Nystatin 1 applic 04/06/17 10:00 04/09/17 10:20 Nystop Powder - TP 1 applic DAILY NANCY Administration Ondansetron HCl 4 mg 04/05/17 03:37 Zofran Injection IVPB Q6H PRN NAUSEA Pantoprazole Sodium 40 mg 04/05/17 10:00 04/09/17 22:18 Protonix - PO 40 mg BID NANCY Administration 04/05/2017: Renal Ultrasound: Both kidneys are enlarged without the evidence of hydronephrosis or stones. Fatty liver vs hepatocellular disease. please correlate with liver enzymes. ASSESSMENT/PLAN: Patient is a 42 year old male with significant PMH of HTN, HLD, DM, Morbid obesity w/ chronic lower extremity lymphedema who presents to ED for positive blood culture. # Gram negative bacteremia from UTI Urine culture and blood culture grew gram negative bacteria - Patient was seen in the ED 2 (04/03/2017) days ago for evaluation of nausea, vomiting and abdominal pain. He was sent home on famotidine, pantoprazole and zofran and to f/up with GI doctor. Since patients blood culture grew gram negative bacteria, he was asked to come back to the hospital for further investigation and IV antibiotics. - On admission, patient was afebrile & normotensive - Continue IV Ceftriaxone Day 5 (patient has multiple AB allergies) -lactic acid normal -avoid nephrotoxic meds -Urology consult appreciated (Dr Lopez). CT scan of abdomen/ pelvis and outpatient cystoscopy. However, CT scan at this hospital is not possible due to the body habitus obesity (BMI of 75) # Acute Kidney Injury-resolving Likely prerenal - USG of kidney and bladder was done to r/o obstructive uropathy: which showed B /L enlarged Kidneys without any hydronephrosis - post void bladder scan 150 last week - hold lisinopril -avoid nephrotoxic drugs -BUN 17 and Cr 1.4. #Hypokalmia-resolved -K-4.5 # Hypovolemic Hyponatremia-resoled Na-137 # Diabetes Mellitus -ISS -BGM ACHS -HbA1C 7.7 -Changed Levemir to 10 U daily, will adjust the dose according to the blood sugar level. -Hold Metformin -Patient said he takes Inj Exenatide once a week which is not available at our pharmacy. #Hypertension- stable / Hyperlipidemia - Lisinopril 5mg on hold and started Amlodipine 5mg Daily, Lipitor 20mg PO HS # Morbid obesity - Weight loss counseling -needs finisher hot strip consult # FEN IV NS @ 100mls/hr Electrolytes to be repeated tomorrow Diabetic diet # Prophylaxis For DVT: Heparin 5000 IU TID For GI: Protonix 40mg BID PO # Code Status: Full Code # Dispo: Admitted in Med-Surg. Duration of stay unknown. Illness, Investigation and Plan of care explained to the patient. He verbalized understanding. Case seen and discussed with Dr. Steward. Visit type - Emergency Visit Emergency Visit: Yes ED Registration Date: 04/05/17 Care time: The patient presented to the Emergency Department on the above date and was hospitalized for further evaluation of their emergent condition. - New Patient This patient is new to me today: No - Critical Care Critical Care patient: No
[2017-04-10] MEDS: PANTOPRAZOLE 40 MG TABLET (FP) PO SCH ×2 (10:20→22:28)
[2017-04-10] MEDS: amLODIPine BESYLATE 5 MG TABLET (FP) PO SCH (10:20)
[2017-04-10] MEDS: CEFTRIAXONE 100 ML IVPB SCH (10:20)
[2017-04-10] MEDS: NYSTATIN POWDER 100,000 UNITS/GM - 15 GM TOPICAL POWDER TP SCH (10:21)
[2017-04-10] MEDS ORDERED: PT OWN MED DRAWER 7, Y5N ONE ×2 (17:26→21:59)
[2017-04-10] MEDS ORDERED: ATORVASTATIN CA 20 MG TABLET (FP) PO SCH (22:00)
[2017-04-10] MEDS: ATORVASTATIN CA 10 MG TABLET (FP) PO SCH (22:36)
[2017-04-11] MEDS: HEPARIN NA (PORCINE) 5,000 UNITS/ML 1ML VIAL SQ SCH ×2 (03:13→06:14)
[2017-04-11] MEDS: INSULIN DETEMIR 100 UNITS/ML MDV SQ SCH (06:13)
[2017-04-11] MEDS: INSULIN SLIDING SCALE (NOVOLOG) 1 VIAL SQ SCH ×2 (06:15→11:45)
[2017-04-11 06:36] VITALS: TEMP 98.2
[2017-04-11 07:51] LABS: MCH 28.1 pg (25.7-33.7); MCHC 33.4 g/dl (32.0-35.9); MEAN CELL VOLUME 84.2 fl (80-96); MEAN PLT VOLUME 8.5 fl (7.5-11.1); PLATELET COUNT 364 K/MM3 (134-434); RDW 15.5 % (11.9-15.9); WHITE BLOOD COUNT 9.8 K/mm3 (4.0-10.0)
[2017-04-11 08:23] LABS: ALBUMIN 2.5 g/dl (3.4-5.0); ANION GAP 13 (8-16); BILIRUBIN,TOTAL 0.4 mg/dL (0.2-1.0); CALCIUM 8.6 mg/dL (8.5-10.1); CO2 25 mmol/L (21-32); COCKROFT - GAULT 208.65; CREATININE 1.2 mg/dL (0.7-1.3); GLUCOSE,RANDOM 169 mg/dL (74-106); SGOT/AST 20 U/L (15-37); SGPT/ALT 34 U/L (12-78); TOT PROT 6.9 g/dl (6.4-8.2)
[2017-04-11 08:24] LABS: ALK PHOS 77 U/L (45-117)
[2017-04-11] MEDS: PANTOPRAZOLE 40 MG TABLET (FP) PO SCH (09:57)
[2017-04-11] MEDS: amLODIPine BESYLATE 5 MG TABLET (FP) PO SCH (09:57)
[2017-04-11] MEDS: CEFTRIAXONE 100 ML IVPB SCH (09:58)
--- NOTE | 2017-04-11 10:03 | PN ---
Teaching Attending Note Name of Resident: Alison Sanchez ATTENDING PHYSICIAN STATEMENT I saw and evaluated the patient. I reviewed the resident's note and discussed the case with the resident. I agree with the resident's findings and plan as documented. SUBJECTIVE: Patient is feeling better, wants to go home OBJECTIVE: Vital Signs Temperature 98.2 F 04/11/17 06:00 Pulse Rate 91 H 04/11/17 06:00 Respiratory Rate 20 04/11/17 06:00 Blood Pressure 125/78 04/11/17 06:00 O2 Sat by Pulse Oximetry (%) 93 L 04/10/17 21:00 CBCD WBC 9.8 K/mm3 (4.0-10.0) 04/11/17 06:55 RBC 4.00 M/mm3 (4.00-5.60) 04/11/17 06:55 Hgb 11.3 GM/dL (11.7-16.9) L 04/11/17 06:55 Hct 33.7 % (35.4-49) L 04/11/17 06:55 MCV 84.2 fl (80-96) 04/11/17 06:55 MCHC 33.4 g/dl (32.0-35.9) 04/11/17 06:55 RDW 15.5 % (11.9-15.9) 04/11/17 06:55 Plt Count 364 K/MM3 (134-434) 04/11/17 06:55 MPV 8.5 fl (7.5-11.1) 04/11/17 06:55 CMP Sodium 140 mmol/L (136-145) 04/11/17 06:55 Potassium 4.4 mmol/L (3.5-5.1) 04/11/17 06:55 Chloride 102 mmol/L (98-107) 04/11/17 06:55 Carbon Dioxide 25 mmol/L (21-32) 04/11/17 06:55 Anion Gap 13 (8-16) 04/11/17 06:55 BUN 15 mg/dL (7-18) 04/11/17 06:55 Creatinine 1.2 mg/dL (0.7-1.3) 04/11/17 06:55 Creat Clearance w eGFR > 60 (>60) 04/11/17 06:55 Random Glucose 169 mg/dL (74-106) H 04/11/17 06:55 Calcium 8.6 mg/dL (8.5-10.1) 04/11/17 06:55 Total Bilirubin 0.4 mg/dL (0.2-1.0) 04/11/17 06:55 AST 20 U/L (15-37) 04/11/17 06:55 ALT 34 U/L (12-78) 04/11/17 06:55 Alkaline Phosphatase 77 U/L (45-117) 04/11/17 06:55 Total Protein 6.9 g/dl (6.4-8.2) 04/11/17 06:55 Albumin 2.5 g/dl (3.4-5.0) L 04/11/17 06:55 CARDIAC ENZYMES Creatine Kinase 141 IU/L (39-308) 04/05/17 02:00 Troponin I < 0.02 ng/ml (0.00-0.05) 04/05/17 02:00 Current Medications Generic Name Dose Route Start Last Admin Trade Name Freq PRN Reason Stop Dose Admin Acetaminophen 650 mg 04/05/17 03:37 Tylenol - PO Q4H PRN FEVER OR PAIN Amlodipine Besylate 5 mg 04/05/17 10:00 04/11/17 09:57 Norvasc - PO 5 mg DAILY NANCY Administration Atorvastatin Calcium 20 mg 04/10/17 22:00 04/10/17 22:21 Lipitor - PO 20 mg HS NANCY Administration Heparin Sodium (Porcine) 5,000 unit 04/10/17 22:15 04/11/17 06:14 Heparin - SQ 5,000 unit TID NANCY Administration Ceftriaxone Sodium 100 mls @ 200 mls/hr 04/06/17 10:30 04/11/17 09:58 Rocephin 2gm Ivpb (Pre-Docked) IVPB 200 mls/hr DAILY NANCY Administration Insulin Aspart 1 vial 04/05/17 07:00 04/11/17 06:15 Novolog Vial Sliding Scale - SQ 2 units ACHS NANCY Administration Protocol Insulin Detemir 10 units 04/06/17 10:39 04/11/17 06:13 Levemir Vial SQ 10 unit ACBK NANCY Administration Nystatin 1 applic 04/06/17 10:00 04/10/17 10:21 Nystop Powder - TP 1 applic DAILY NANCY Administration Ondansetron HCl 4 mg 04/05/17 03:37 Zofran Injection IVPB Q6H PRN NAUSEA Pantoprazole Sodium 40 mg 04/05/17 10:00 04/11/17 09:57 Protonix - PO 40 mg BID NANCY Administration Home Medications Medication Instructions Recorded Atorvastatin Ca [Lipitor] 10 mg PO DAILY 11/16/16 Insulin Lispro Protamin/Lispro 20 unit SQ BID 11/16/16 [Humalog Mix 75-25 Kwikpen] Lisinopril 5 mg PO DAILY 11/16/16 Metformin HCl [Metformin HCl ER] 2 tab PO DAILY 11/16/16 Famotidine [Pepcid -] 40 mg PO BID #14 tablet 04/03/17 Ondansetron [Zofran Odt -] 4 mg SL Q6H PRN #30 od.tablet 04/03/17 Pantoprazole Sodium [Protonix -] 40 mg PO BID #14 tablet.ec 04/03/17 Microbiology 04/08/17 08:57 Blood - Peripheral Venous Blood Culture - Preliminary NO GROWTH OBTAINED AFTER 72 HOURS, INCUBATION TO CONTINUE FOR 2 DAYS. 04/08/17 08:50 Blood - Peripheral Venous Blood Culture - Preliminary NO GROWTH OBTAINED AFTER 72 HOURS, INCUBATION TO CONTINUE FOR 2 DAYS. 04/05/17 00:12 Blood - Peripheral Venous Blood Culture - Preliminary Gram Positive Cocci 04/05/17 00:12 Blood - Peripheral Venous Blood Culture - Final NO GROWTH AFTER 5 DAYS INCUBATION 04/05/17 01:11 Urine - Urine Clean Catch Urine Culture - Final Escherichia Coli ASSESSMENT AND PLAN: Patient is a 41 y/o male with h/o HTN, IDDM, Lymphedema , LE wounds, with recent admission for urinary retention , and wound infection , recent ESBL infection of wounds , who presented after being called due to blood cx growing G- bacilli #Acute UTI due to E.Coli sensitive to Rocephin completed the course of IV antibiotics today , then po ceftin po 500mg po bid x 7 days. will send him home with Bacid 2x per day also asked to be washed everytime he urinates, and follow up with urologist for further w/u. # Sepsis due to UTI continue IV antibiotic , WBC trended down now 9.8 today - urology follow up as out pt , for cystoscopy and CT scan .Blood culture ; one set is positive for gram positive cocci = contaminant # DM: cont SSI , cont levemir 10 units . at dc will resume home dose of novolog mix 75/25 # ROSALVA : renal US with no obstruction , or hydro . cont IVF. Cr improved and stable , hold lisinopril for now # HTN: cont to hold lisinopril and cont norvasc for now , reduced the dose to 2.5mg daily # Tinea pedis and tinea Cruris : nystatin powder continue follow up with primary in a week. follow up with a urologist within a week
[2017-04-11 10:38] VITALS: BP 101/60; PULSE 89
--- NOTE | 2017-04-11 11:32 | DS ---
Physical Exam: SUBJECTIVE: Patient seen and examined at bed side this morning. No complaints. Feels better. Denies chest pain, sob, cough, palpitation, abdominal pain, nausea or vomiting, fever, chills, rigors or sweating. Bowel/Bladder habit normal. No urinary symptoms. OBJECTIVE: Vital Signs Period Temp Pulse Resp BP Sys/Eric Pulse Ox Last 24 Hr 97.6 F-98.9 F 80-112 18-20 101-160/60-83 93-93 PHYSICAL EXAM GENERAL: The patient is a morbidly obese patient, sitting comfortably in a chair , awake, alert, and fully oriented, in no acute distress. HEAD: Normal with no signs of trauma. EYES:EOM intact, no pallor or icterus. ENT: Ears normal, nares patent, oropharynx clear without exudates, moist mucous membranes. NECK: Trachea midline, full range of motion, supple. LUNGS: Breath sounds equal, clear to auscultation bilaterally, no wheezes, no crackles, no accessory muscle use. HEART: Regular rate and rhythm, S1, S2 without murmur, rub or gallop. ABDOMEN: Soft, non tender, nondistended, normoactive bowel sounds, no guarding , no rebound, no hepatosplenomegaly, no masses. UPPER EXTREMITIES: 2+ pulses, warm, well-perfused, no edema. LOWER EXTREMITIES: 2+ pulses, warm, well-perfused. B/L LE lymphedema (>2years) with chronic superficial ulcers Dressing in place in B/L LE. NEUROLOGICAL: Cranial nerves II through XII grossly intact. Normal speech, gait not observed. PSYCH: Normal mood, normal affect. SKIN: Warm, dry, normal turgor, no rashes or lesions noted LABS Laboratory Results - last 24 hr 04/10/17 04/10/17 04/10/17 11:54 17:00 21:50 WBC RBC Hgb Hct MCV MCHC RDW Plt Count MPV Sodium Potassium Chloride Carbon Dioxide Anion Gap BUN Creatinine Creat Clearance w eGFR POC Glucometer 180 232 218 Random Glucose Calcium Total Bilirubin AST ALT Alkaline Phosphatase Total Protein Albumin 04/11/17 04/11/17 04/11/17 05:54 06:55 06:55 WBC 9.8 RBC 4.00 Hgb 11.3 L Hct 33.7 L MCV 84.2 MCHC 33.4 RDW 15.5 Plt Count 364 MPV 8.5 Sodium 140 Potassium 4.4 Chloride 102 Carbon Dioxide 25 Anion Gap 13 BUN 15 Creatinine 1.2 Creat Clearance w eGFR > 60 POC Glucometer 190 Random Glucose 169 H Calcium 8.6 Total Bilirubin 0.4 AST 20 ALT 34 Alkaline Phosphatase 77 Total Protein 6.9 Albumin 2.5 L 04/05/2017: Renal Ultrasound: Both kidneys are enlarged without the evidence of hydronephrosis or stones. Fatty liver vs hepatocellular disease. please correlate with liver enzymes. HOSPITAL COURSE: Date of Admission:04/05/17 Date of Discharge: 04/11/17 Patient is a 42 year old male with significant PMH of HTN, HLD, DM, Morbid obesity w/ chronic lower extremity lymphedema who was called from home after his blood culture came positive blood culture. 2 days before the admission, patient had visited the ED on 04/02/2017 nausea & vomiting. He was worked up and sent home on Zofran and instrcuted to f/u with production weigher. Since his blood culture came back positive , he was called from home to be admitted. Admitted with the diagnosis of sepsis secondary to UTI (Positive urine culture E.coli) . Patient was treated with IV Ceftriaxone x 6 days. Although he is allergic to penicillin, he tolerated ceftriaxone without any adverse effects. Discharging the patient on Ceftin 500mg BID x 7 days. Urology was consulted who suggested outpatient cystoscopy and CT abdomen/ Pelvis. Because he was morbidly obese, CT scan couldn't be done here. During the admission, he was afebrile, hemodynamically stable. However, he did have Acute Kidney Injury. Hence, Lisinopril was changed to Amlodipine 5mg Daily and dose was reduced to 2.5mg Daily. He will be discharged on Amlodipine 2.5 mg Daily. Patient blood sugar was controlled with Insulin sliding scale and Levemir. Metformin upon discharge is discontinued thinking Metformin might have also attributed to his ROSALVA. Now his kidney function has normalized. USG of kidney and bladder was done to r/o obstructive uropathy: which showed B/L enlarged Kidneys without any hydronephrosis. He had hypokalemia and hypovolemic hyponatremia during his hospital stay which resolved. We stopped the Metformin upon discharge until he sees his hospital unit clerk because of the worsening kidney function during admission. But now the kidney function has improved. He will continue to take home medication: Insulin and Exenatide. Also advised to take cranberry tablets and bacid tablets. Weight loss counseling was done. Dietecian consultation was done who provided full exchange list and 2000 kcal meal plans. Patient has been instructed to f/up with PCP and urologist in a week and to f/ up at the wound center. Illness, Investigation and Plan of care explained to the patient. He verbalized understanding. Case seen and discussed with Dr. Steward. Minutes to complete discharge: 45 Discharge Summary Reason For Visit: GRAM-NEGATIVE BACTEREMIA Current Active Problems UTI (urinary tract infection) (Acute) Bilateral lower leg cellulitis (Chronic) HLD (hyperlipidemia) (Chronic) HTN (hypertension) (Chronic) Leg wound, left (Chronic) Leg wound, right (Chronic) Lymphedema (Chronic) Condition: Improved - Instructions Diet, Activity, Other Instructions: You had a Urinary Tract Infection (E. coli). You were given IV antibiotics during this admission. Urology was consulted. He would like to see you at his office for a possible cystoscopy and CT abdomen/Pelvis. Please take the oral antibiotics two times a day for 7 days. Make sure you wash the area after you urinate and keep it clean. Since your kidney function was affected due to the infection, we stopped Lisinopril (Hypertensive medication that you were taking at home) and started on Amlodipine. PLease continue taking it. We stopped your Metformin until you see your hospital unit clerk because of the worsening kidney function during admission. But now your kidney function has improved. Please take cranberry tablets and bacid tablets. F/up at the wound care center for the chronic infection of the lower legs. F/up with your primary care in a week. Return to the ED immediately if your symptoms worsen or if you develop any new symptoms. Referrals: Anil Lopez MD [Staff Physician] - Nimesh Loyd MD [Primary Care Provider] - Disposition: HOME - Home Medications Comprehensive Discharge Medication List: Ambulatory Orders Atorvastatin Ca [Lipitor] 10 mg PO DAILY 11/16/16 Insulin Lispro Protamin/Lispro [Humalog Mix 75-25 Kwikpen] 20 unit SQ BID Metformin HCl [Metformin HCl ER] 2 tab PO DAILY 11/16/16 Famotidine [Pepcid -] 40 mg PO BID #14 tablet 04/03/17 Ondansetron [Zofran Odt -] 4 mg SL Q6H PRN #30 od.tablet 04/03/17 Pantoprazole Sodium [Protonix -] 40 mg PO BID #14 tablet.ec 04/03/17 Amlodipine Besylate [Norvasc -] 2.5 mg PO DAILY #30 tablet 04/11/17 Cefuroxime Axetil [Ceftin -] 500 mg PO BID #14 tablet 04/11/17 Lactobacillus Acidophilus [Bacid -] 1 each PO BID #60 capsule 04/11/17 This patient is new to me today: Yes Date on this admission: 04/11/17 Emergency Visit: No Critical Care patient: No - Discharge Referral Referred to [facility] No
[2017-04-11] MEDS ORDERED: INSULIN (NOVOLOG) ASPART 100 UNITS/ML 10ML VIAL ONE (11:41)
[2017-04-11] MEDS: NYSTATIN POWDER 100,000 UNITS/GM - 15 GM TOPICAL POWDER TP SCH (11:44)
[2017-04-12] MEDS ORDERED: amLODIPine BESYLATE 5 MG TABLET (FP) PO SCH (10:00)
== END 2017-04-11 12:20 | disposition home or self-care (01) | DRG 720 ==
LOC: JER 20:56 → JERBED 04-05 02:43 → J8W 04-05 12:25
PROVIDERS: ADMIT Internal Medicine; ATTEND Internal Medicine
DX: A41.51 Sepsis due to Escherichia coli [E. coli] (principal); N39.0 Urinary tract infection, site not specified; E66.01 Morbid (severe) obesity due to excess calories; Z68.45 Body mass index [BMI] 70 or greater, adult; I10 Essential (primary) hypertension; E78.5 Hyperlipidemia, unspecified; E11.9 Type 2 diabetes mellitus without complications; E87.6 Hypokalemia; E87.1 Hypo-osmolality and hyponatremia; I89.0 Lymphedema, not elsewhere classified; N17.9 Acute kidney failure, unspecified; B35.6 Tinea cruris; B35.3 Tinea pedis; Z79.4 Long term (current) use of insulin; Z88.0 Allergy status to penicillin; B96.20 Unspecified Escherichia coli [E. coli] as the cause of diseases classified elsewhere
CPT/HCPCS: 36415; 71010-TC; 76775-TC; 80048; 80053; 81003; 81015; 82550; 82803; 83036; 83605; 84443; 84484; 85025; 85027; 85610; 85651; 85730; 86850; 86900; 86901; 87040; 87086; 87186; 93005; 93010; 97116-GP; 99285-25; J1644

== ENCOUNTER 2018-09-15 03:37 | Emergency (ER) | payer OTHER ==
[2018-09-15 04:10] VITALS: BMI 55.7
--- NOTE | 2018-09-15 04:31 | PDOC ---
History of Present Illness - General Chief Complaint: Palpitations Stated Complaint: PALPITATIONS Time Seen by Provider: 09/15/18 03:51 History Source: Patient - History of Present Illness Initial Comments: 43 y/o M w/PMH of HTN, HLD, DM, morbid obesity, chronic LE lymphedema presents to the ER with sudden onset of palpitations approximately 2 hours ago. Pt also reported nausea at this time and mild SOB and decided to come to the ER. 1 week ago he started drinking hibiscus tea three times a day to help control his BP, DM, and HLD. 2 days ago he stopped taking his lisinopril and notes his BP has been in the 120-130s systolic during this time. He also reports that he stopped taking his once a week injectable diabetic medication this week but has continued taking his metformin. He has stopped taking his statin as well. He went to [facility] urgent care on 09/12/18 for reassurance of his blood pressure and an EKG was done there which showed NSR @ [address] segment elevations or depressions or TWI noted on EKG. A CXR was also done for SOB which showed no acute pathology. He was told to follow up with his PCP and billing services manager for technician terminal and repeater management but the d/c paperwork has a diagnosis of Abnormal EKG listed which has been worrying the patient. He currently still feels the palpitations but no longer has the nausea. He denies ROMANO, dizziness, chest pressure, abd pain, change in bowel or urinary habits, increase in LE edema. PMH: HTN, HLD, DM PSHx: denies surgeries SH: denies smoking, drinking, drugs FH: HTN in both parents PCP: Dr. Nimesh Loyd Past History - Past Medical History Allergies/Adverse Reactions: Allergies Allergy/AdvReac Type Severity Reaction Status Date / Time Penicillins Allergy Verified 09/15/18 04:02 piperacillin sodium Allergy Verified 09/15/18 04:02 [From Zosyn] tazobactam sodium Allergy Verified 09/15/18 04:02 [From Zosyn] Home Medications: Ambulatory Orders Atorvastatin Ca [Lipitor] 10 mg PO DAILY 11/16/16 Insulin Lispro Protamin/Lispro [Humalog Mix 75-25 Kwikpen] 20 unit SQ BID Amlodipine Besylate [Norvasc -] 2.5 mg PO DAILY #30 tablet 04/11/17 Diabetes: Yes GI Disorders: Yes (OBESITY.) HTN: Yes Hypercholesterolemia: Yes - Immunization History Immunization Up to Date: Yes - Suicide/Smoking/Psychosocial Hx Smoking History: Never smoked Have you smoked in the past 12 months: No Information on smoking cessation initiated: No Hx Alcohol Use: No Drug/Substance Use Hx: No Substance Use Type: None Hx Substance Use Treatment: No Review of Systems - Review of Systems Able to Perform ROS?: Yes Constitutional: No: Chills, Fever Respiratory: No: Cough, Shortness of Breath Cardiac (ROS): Yes: Chest Pain (L side under clavicle/next to sternum), Palpitations. No: Irregular Heart Rate, Lightheadedness ABD/GI: No: Blood Streaked Bowels : No: Burning, Frequency Neurological: No: Headache, Dizziness *Physical Exam - Vital Signs Last Vital Signs Temp Pulse Resp BP Pulse Ox 97.9 F 93 H 19 153/87 99 09/15/18 03:40 09/15/18 03:40 09/15/18 03:40 09/15/18 03:40 09/15/18 03:40 - Physical Exam General Appearance: Yes: Nourished, Appropriately Dressed, Obese. No: Apparent Distress HEENT: positive: EOMI Neck: positive: Supple Respiratory/Chest: positive: Chest Tender (Reproducible pain at L side of chest wall (under clavicle and adjacent to sternum). At the location he states he is having chest pain in HPI.), Lungs Clear, Normal Breath Sounds. negative: Respiratory Distress Cardiovascular: positive: Regular Rhythm, Regular Rate, S1, S2. negative: Murmur Gastrointestinal/Abdominal: positive: Normal Bowel Sounds, Soft. negative: Tender Extremity: positive: Other (b/l LE lymphedema) Neurologic: positive: Fully Oriented, Alert, Normal Mood/Affect ED Treatment Course - LABORATORY CBC & Chemistry Diagram: 09/15/18 06:40 09/15/18 06:40 Medical Decision Making - Medical Decision Making 09/15/18 04:33 EKG done here which shows: NSR @ 83bpm. QTc [address] segment elevations or depressions or TWI noted. Will check CBC, CMP, Mg, cardiac profile. 09/15/18 06:58 Case signed out to Dr. Giraldo. *DC/Admit/Observation/Transfer Diagnosis at time of Disposition: Palpitations - Discharge Dispostion Disposition: HOME Condition at time of disposition: Fair - Referrals Referrals: Nimesh Loyd MD [Primary Care Provider] - - Patient Instructions - Post Discharge Activity
--- NOTE | 2018-09-15 05:36 | PDOC ---
Attending Attestation - Resident Resident Name: Mansoor Hirsch - ED Attending Attestation I have performed the following: I have examined & evaluated the patient, The case was reviewed & discussed with the resident, I agree w/resident's findings & plan - HPI HPI: 09/15/18 06:42 Pt woke up with palpitations and got nervous, He is 400 lbs and he is tryimg to lose weight and change his diet and decrease his meds on his own. Now that he is transitionging, he is having slight high BP and he is anxious. Pt has no other complaints. He has no CHest pain and no SOB. He appears well. He wasns some reassurance that he is okay. - Physicial Exam PE: 09/15/18 06:43 Agree with resident exam. - Medical Decision Making 09/15/18 06:43 Check CBC and Chem; pt will be sent home. Pt will try a vegan diet. We discussed the importance of cutting out meat and fish and dairy and eggs. 09/15/18 06:57 Day team will check labs and d/c home.
[2018-09-15 07:17] LABS: ALBUMIN 3.4 g/dl (3.4-5.0); ALK PHOS 76 U/L (45-117); ANION GAP 8 MMOL/L (8-16); BILIRUBIN,TOTAL 0.3 mg/dL (0.2-1); BLOOD UREA NITROGEN 23 mg/dL (7-18); CALCIUM 9.4 mg/dL (8.5-10.1); CHLORIDE 106 mmol/L (98-107); CO2 26 mmol/L (21-32); CREATININE 0.9 mg/dL (0.55-1.3); GLUCOSE,RANDOM 93 mg/dL (74-106); MAGNESIUM 2.1 mg/dL (1.8-2.4); POTASSIUM 4.1 mmol/L (3.5-5.1); SGOT/AST 17 U/L (15-37); SGPT/ALT 20 U/L (13-61); SODIUM 139 mmol/L (136-145); TOT PROT 7.4 g/dl (6.4-8.2)
[2018-09-15 07:27] LABS: BASO % 0.9 % (0-2.0); EOS % 2.3 % (0-4.5); HEMATOCRIT 39.5 % (35.4-49); HEMOGLOBIN 12.9 GM/dL (11.7-16.9); LYMPH % 32.7 % (8-40); MCH 27.2 pg (25.7-33.7); MCHC 32.5 g/dl (32.0-35.9); MEAN CELL VOLUME 83.6 fl (80-96); MEAN PLT VOLUME 8.1 fl (7.5-11.1); MONO % 15.1 % (3.8-10.2); PLATELET COUNT 240 K/MM3 (134-434); RBC 4.73 M/mm3 (4.00-5.60); RDW 15.3 % (11.9-15.9); WHITE BLOOD COUNT 7.9 K/mm3 (4.0-10.0)
--- NOTE | 2018-09-15 07:31 | PDOC ---
*Physical Exam - Vital Signs Last Vital Signs Temp Pulse Resp BP Pulse Ox 97.9 F 93 H 19 153/87 99 09/15/18 03:40 09/15/18 03:40 09/15/18 03:40 09/15/18 03:40 09/15/18 03:40 - Physical Exam General Appearance: Yes: Nourished, Obese HEENT: positive: Normal Voice, Hearing Grossly Normal Neck: positive: Trachea midline, Supple Respiratory/Chest: positive: Lungs Clear, Normal Breath Sounds Cardiovascular: positive: S1, S2. negative: JVD Vascular Pulses: Dorsalis-Pedis (R): 2+, Doralis-Pedis (L): 2+ Gastrointestinal/Abdominal: positive: Normal Bowel Sounds, Soft Extremity: positive: Normal Capillary Refill, Normal Inspection Integumentary: positive: Normal Color, Dry, Warm ED Treatment Course - LABORATORY CBC & Chemistry Diagram: 09/15/18 06:40 09/15/18 06:40 - ADDITIONAL ORDERS Additional order review: Laboratory Results 09/15/18 06:40 Sodium 139 Potassium 4.1 Chloride 106 Carbon Dioxide 26 Anion Gap 8 BUN 23 H Creatinine 0.9 Creat Clearance w eGFR > 60 Random Glucose 93 Calcium 9.4 Magnesium 2.1 Total Bilirubin 0.3 AST 17 ALT 20 Alkaline Phosphatase 76 Creatine Kinase 122 Troponin I < 0.02 Total Protein 7.4 Albumin 3.4 Medical Decision Making - Medical Decision Making 09/15/18 07:40 Patient signed out by Dr. Hirsch (Resident) and Dr. Segundo (Attending) 43 year old male with palpitations, chest tightness, shortness of breath. Recent h/o stopping Lisinopril, Humalog (continuing Metformin), and statin and attemping home remedies including hibiscus tea to control his BP, BS and HLD. Came to the ED b/c his discharge papers from Urgent Care stated he had abnormal ECG. Review of ECG dated 09/12 shows normal intervals, no deviations no ANDRES/STD /TWI, c/w ECG here. Troponin (-) x1 BS 93 Given patient's significant risk factors, no h/o of previous cardiac work-up will admit patient for further evaluation including echo, cardiology evaluation. 09/15/18 08:18 Paged Hospitalist service 09/15/18 08:34 Case d/w patient's PMD, Dr. Nimesh Loyd, will admit patient for further evaluation. Requests Dr. Orellana for cardiology Patient counseled on plan of care. 09/15/18 15:17 Dr Loyd @ bedside. [facility] d/w cardiology who evaluated patient @ bedside. Cardiology has cleared patient for discharge. Patient has scheduled appointment for full cardiac evaluation in the next 48 hours. Will discharge patient home with strong return precautions and counseling that he must resume home medications until fully evaluated by his PMD. I discussed the physical exam findings, ancillary test results and final diagnoses with the patient. I answered all of the patient's questions. The patient was satisfied with the care received and felt comfortable with the discharge plan and treatment plan. The patient will return to the Emergency Department with any new, persistent or worsening symptoms including if he is unable to follow-up with full cardiac evaluation in the next 2-3 days. *DC/Admit/Observation/Transfer Diagnosis at time of Disposition: Palpitations, Chest pain - Discharge Dispostion Disposition: HOME Condition at time of disposition: Good Decision to Admit order: No - Referrals Referrals: Nimesh Loyd MD [Primary Care Provider] - - Patient Instructions Additional Instructions: You must keep your previously scheduled appointment with cardiology -- if you are not evaluated by cardiology in the next 48 hours or return to the Emergency Department. Please take your cholesterol, high blood pressure and diabetic medications until being evaluated by Dr. Loyd and follow-up with him in the next 3 days. Return to the Emergency Department for any new/worsening/concerning symptoms including chest pain, shortness of breath. - Post Discharge Activity
--- NOTE | 2018-09-15 07:50 | PDOC ---
*Physical Exam - Vital Signs Last Vital Signs Temp Pulse Resp BP Pulse Ox 97.9 F 93 H 19 153/87 99 09/15/18 03:40 09/15/18 03:40 09/15/18 03:40 09/15/18 03:40 09/15/18 03:40 - Physical Exam General Appearance: Yes: Nourished Respiratory/Chest: positive: Lungs Clear, Normal Breath Sounds Cardiovascular: positive: Regular Rhythm, Regular Rate, S1, S2 Neurologic: positive: Fully Oriented, Alert, Normal Mood/Affect <Kristine Rolle - Last Filed: 09/15/18 08:29> - Vital Signs Last Vital Signs Temp Pulse Resp BP Pulse Ox 99.0 F 78 18 122/74 98 09/15/18 16:00 09/15/18 16:00 09/15/18 16:00 09/15/18 16:00 09/15/18 16:00 - Physical Exam General Appearance: Yes: Nourished, Obese HEENT: positive: Normal Voice, Hearing Grossly Normal Respiratory/Chest: positive: Lungs Clear, Normal Breath Sounds Cardiovascular: positive: S1, S2 Gastrointestinal/Abdominal: positive: Normal Bowel Sounds, Soft Musculoskeletal: negative: CVA Tenderness (R), CVA Tenderness (L) Neurologic: positive: Fully Oriented, Alert <Bridget Giraldo - Last Filed: 09/15/18 18:58> Heart Score/ECG Review - History History: Moderately suspicious - Electrocardiogram EKG: Normal - Age Age: </= 43 - Risk Factors Risk Factors Heart Score: Yes Hx Hypercholesterolemia, Yes Hx Hypertension, Yes Hx Diabetes, Yes Hx Obesity Based on the list above the patient has:: >/=3 risk factors or Hx atherosclerotic disease - Troponin Troponin: </= normal limit - Score Heart Score - Total: 3 <Kristine Rolle - Last Filed: 09/15/18 08:29> ED Treatment Course - LABORATORY CBC & Chemistry Diagram: 09/15/18 06:40 09/15/18 06:40 - ADDITIONAL ORDERS Additional order review: Laboratory Results 09/15/18 06:40 Sodium 139 Potassium 4.1 Chloride 106 Carbon Dioxide 26 Anion Gap 8 BUN 23 H Creatinine 0.9 Creat Clearance w eGFR > 60 Random Glucose 93 Calcium 9.4 Magnesium 2.1 Total Bilirubin 0.3 AST 17 ALT 20 Alkaline Phosphatase 76 Creatine Kinase 122 Troponin I < 0.02 Total Protein 7.4 Albumin 3.4 <Kristine Rolle - Last Filed: 09/15/18 08:29> - LABORATORY CBC & Chemistry Diagram: 09/15/18 06:40 09/15/18 06:40 - ADDITIONAL ORDERS Additional order review: Laboratory Results 09/15/18 09/15/18 09/15/18 15:27 11:18 11:18 Sodium Potassium Chloride Carbon Dioxide Anion Gap BUN Creatinine Creat Clearance w eGFR Random Glucose Hemoglobin A1c % 6.5 H Calcium Magnesium Total Bilirubin AST ALT Alkaline Phosphatase Creatine Kinase 115 116 Troponin I < 0.02 < 0.02 Total Protein Albumin TSH 09/15/18 09/15/18 11:18 06:40 Sodium 139 Potassium 4.1 Chloride 106 Carbon Dioxide 26 Anion Gap 8 BUN 23 H Creatinine 0.9 Creat Clearance w eGFR > 60 Random Glucose 93 Hemoglobin A1c % Calcium 9.4 Magnesium 2.1 Total Bilirubin 0.3 AST 17 ALT 20 Alkaline Phosphatase 76 Creatine Kinase 122 Troponin I < 0.02 Total Protein 7.4 Albumin 3.4 TSH 2.91 D 09/15/18 06:40 RBC 4.73 MCV 83.6 MCHC 32.5 RDW 15.3 MPV 8.1 Neutrophils % 49.0 Lymphocytes % 32.7 D Monocytes % 15.1 H D Eosinophils % 2.3 Basophils % 0.9 <Bridget Giraldo - Last Filed: 09/15/18 18:58> Medical Decision Making - Medical Decision Making 09/15/18 07:48 43 yo obese male h/o DM HTN HLD here c/o palpitations last evening. pt states he stopped his bp meds, and insulin 3 days ago because he wanted to try herbal methods. was drinking hibiscus tea three times daily. states bp has been controlled until last night. describes racing heart beat with associated chest tightness and sob. no radiation. no family h/o cad. labs unremarkable. ekg reviewed and normal. comparison to ekg from [facility] 3 days prior. plan admit obs tele due to risk factors for cad of htn hld and obesity, and dm. 09/15/18 08:29 <Kristine Rolle - Last Filed: 09/15/18 08:29> *DC/Admit/Observation/Transfer <Kristine Rolle - Last Filed: 09/15/18 08:29> <Bridget Giraldo - Last Filed: 09/15/18 18:58> Diagnosis at time of Disposition: Palpitations, Chest pain - Discharge Dispostion Disposition: HOME Condition at time of disposition: Good - Referrals Referrals: Nimesh Loyd MD [Primary Care Provider] - - Patient Instructions Additional Instructions: You must keep your previously scheduled appointment with cardiology -- if you are not evaluated by cardiology in the next 48 hours or return to the Emergency Department. Please take your cholesterol, high blood pressure and diabetic medications until being evaluated by Dr. Loyd and follow-up with him in the next 3 days. Return to the Emergency Department for any new/worsening/concerning symptoms including chest pain, shortness of breath. - Post Discharge Activity
[2018-09-15] MEDS ORDERED: NITROGLYCERIN SUBLINGUAL 1/200 0.3 MG BTL SL PRN (10:30)
--- NOTE | 2018-09-15 11:16 | CONSULT ---
Consultation: CARDIOLOGY CONSULT CONSULT REQUEST: We have been asked to medically evaluate this patient for ( chest pain, palpitations). HISTORY OF PRESENT ILLNESS: Patient is a 42 year old male came in to the ED with the chief complaint of Chest pain and palpitations. As per the patient, he was apparently well until last night when he started having chest pain, located centrally, 2/10 in intensity, pressure type, not radiating associated with palpitations and nausea but no vomiting. Chest pressure and palpitations persisted, he was concerned, hence came in to the ED for further evaluation and treatment. Patient reports that he takes Insulin, Lisinopril and statin for DM/HTN/HLD. He read in google that Hibiscus tea will control all those medical problems hence started taking it three times a day since a week. 3 days ago, he noticed his blood sugar was controlled (81 mg/dl on fasting; 95mg/dl PP), BP ranged between 120's-140's systolic so he stopped taking all his medications. He then went to urgent care 3 days ago for reassurance, had his BP measured, EKG done and came back home. EKG showed abnormality as per the patient and is worried. Denies headache, dizziness, tingling/numbness, abdominal pain. Bowel/Bladder habit normal. Sleep/Appetite normal. 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 Allergies : Penicillin/piperacillin sodium/ tazobactam sodium REVIEW OF SYSTEMS: CONSTITUTIONAL: Absent: fever, chills, diaphoresis, generalized weakness, malaise, loss of appetite, weight change HEENT: Absent: rhinorrhea, nasal congestion, throat pain, throat swelling, difficulty swallowing, mouth swelling, ear pain, eye pain, visual changes CARDIOVASCULAR: Present: chest pain, palpitations Absent: syncope, irregular heart rate, lightheadedness, peripheral edema RESPIRATORY: Present: shortness of breath Absent: cough, dyspnea with exertion, orthopnea, wheezing, stridor, hemoptysis GASTROINTESTINAL: Absent: abdominal pain, abdominal distension, nausea, vomiting, diarrhea, constipation, melena, hematochezia GENITOURINARY: Absent: dysuria, frequency, urgency, hesitancy, hematuria, flank pain, genital pain MUSCULOSKELETAL: Absent: myalgia, arthralgia, joint swelling, back pain, neck pain SKIN: Absent: rash, itching, pallor HEMATOLOGIC/IMMUNOLOGIC: Absent: easy bleeding, easy bruising, lymphadenopathy, frequent infections ENDOCRINE: Absent: unexplained weight gain, unexplained weight loss, heat intolerance, cold intolerance NEUROLOGIC: Absent: headache, focal weakness or paresthesias, dizziness, unsteady gait, seizure, mental status changes, bladder or bowel incontinence PSYCHIATRIC: Absent: anxiety, depression, suicidal or homicidal ideation, hallucinations. PHYSICAL EXAMINATION Vital Signs - 24 hr 09/15/18 03:40 Temperature 97.9 F Pulse Rate 93 H Respiratory 19 Rate Blood Pressure 153/87 O2 Sat by Pulse 99 Oximetry (%) GENERAL: The patient is a morbidly obese patient, sitting comfortably in bed, awake, alert, and fully oriented, in no acute distress. HEAD: Normal with no signs of trauma. EYES:EOM intact, no pallor or icterus. ENT: Ears normal, nares patent, oropharynx clear without exudates, moist mucous membranes. NECK: Trachea midline, full range of motion, supple. LUNGS: Breath sounds equal, clear to auscultation bilaterally, no wheezes, no crackles, no accessory muscle use. HEART: Regular rate and rhythm, S1, S2 without murmur. ABDOMEN: Soft, non tender, nondistended, normoactive bowel sounds, no guarding , no rebound, no hepatosplenomegaly, no masses. UPPER EXTREMITIES: 2+ pulses, warm, well-perfused, no edema. LOWER EXTREMITIES: 2+ pulses, warm, well-perfused. B/L LE lymphedema (>3years) with chronic superficial ulcers Dressing in place in B/L LE. NEUROLOGICAL: Cranial nerves II through XII grossly intact. Normal speech, gait not observed. PSYCH: Normal mood, normal affect. SKIN: Warm, dry, normal turgor, no rashes or lesions noted Laboratory Results - last 24 hr 09/15/18 09/15/18 06:40 06:40 WBC 7.9 RBC 4.73 Hgb 12.9 Hct 39.5 D MCV 83.6 MCH 27.2 MCHC 32.5 RDW 15.3 Plt Count 240 D MPV 8.1 Absolute Neuts (auto) 3.9 Neutrophils % 49.0 Lymphocytes % 32.7 D Monocytes % 15.1 H D Eosinophils % 2.3 Basophils % 0.9 Nucleated RBC % 0 Sodium 139 Potassium 4.1 Chloride 106 Carbon Dioxide 26 Anion Gap 8 BUN 23 H Creatinine 0.9 Creat Clearance w eGFR > 60 Random Glucose 93 Calcium 9.4 Magnesium 2.1 Total Bilirubin 0.3 AST 17 ALT 20 Alkaline Phosphatase 76 Creatine Kinase 122 Troponin I < 0.02 Total Protein 7.4 Albumin 3.4 Active Medications Generic Name Dose Route Start Last Admin Trade Name Freq PRN Reason Stop Dose Admin Aspirin 81 mg 09/16/18 10:00 Ecotrin - PO DAILY [facility] Atorvastatin Calcium 20 mg 09/15/18 22:00 Lipitor - PO HS [facility] Heparin Sodium (Porcine) 5,000 unit 09/15/18 14:00 Heparin - SQ TID [facility] Insulin Detemir 10 units 09/15/18 22:00 Levemir Vial SQ HS [facility] Lisinopril 5 mg 09/16/18 10:00 Prinivil PO DAILY [facility] Metformin HCl 1,000 mg 09/15/18 16:30 Glucophage - PO BID@0700,1630 [facility] Nitroglycerin 0.3 mg 09/15/18 10:30 Nitrostat - SL Q5M PRN FOR CHEST PAIN Pantoprazole Sodium 40 mg 09/16/18 10:00 Protonix Packets For Oral Suspension - PO DAILY [facility] Patient is a 42 year old male with significant past medical history of HTN, HLD , DM, Morbid obesity w/ chronic lower extremity lymphedema came in to the ED with the chief complaint of Chest pain and palpitations. ASSESSMENT: Chest pain- R/O ACS Non compliance HTN HLD DM Morbidly obese PLAN: Chest pain-R/O ACS c/o chest pain, located centrally, pressure type, associated with nausea. EKG: NSR, No acute ST or T wave changes Admit to Tele/continous cardiac monitoring Troponin x 1 negative, would recommend to get two more sets of troponin ECHO ordered, has never done one in the past Hypertension Continue lisinopril (home medication) Counseled about medication compliance. Illness, Investigation and Plan of care explained to the patient. He verbalized understanding. Case discussed with Dr. Isela Coronel: We will continue to follow the patient. Thank you for this consultative opportunity. Visit type - Emergency Visit Emergency Visit: Yes Care time: The patient presented to the Emergency Department on the above date and was hospitalized for further evaluation of their emergent condition. - New Patient This patient is new to me today: Yes Date on this admission: 09/15/18 - Critical Care Critical Care patient: No
--- NOTE | 2018-09-15 12:34 | CONSULT ---
- Consultation REQUESTING PROVIDER: CONSULT REQUEST: We have been asked to surgically evaluate this patient for chronic LE Lymphedema. PCP:Nimesh Loyd HISTORY OF PRESENT ILLNESS: PMHx: 43 y/o M w/PMH of HTN, HLD, DM, morbid obesity, chronic LE lymphedema presented to the ER with sudden onset of palpitations approximately and nausea with mild SOB. Patient reports several years of chronic lymphedema previously followed by the Dr Flannery for wound care but has not been in a long time as he has been stuck at home taking care of his parents. He has been changing his dressings roughly twice a week at home by himself. He denies any CP, fever chills, vomiting or leg pain. PSHx: Denies Home Medications Medication Instructions Recorded Unobtainable 09/15/18 Allergies Allergy/AdvReac Type Severity Reaction Status Date / Time Penicillins Allergy Verified 09/15/18 04:02 piperacillin sodium Allergy Verified 09/15/18 04:02 [From Zosyn] tazobactam sodium Allergy Verified 09/15/18 04:02 [From Zosyn] REVIEW OF SYSTEMS: Able to Perform ROS?: Yes Constitutional: No: Chills, Fever Respiratory: No: Cough, Cardiac (ROS): Yes: Chest Pain (L side under clavicle/next to sternum), Palpitations. No: Irregular Heart Rate, Lightheadedness ABD/GI: No: Blood Streaked Bowels : No: Burning, Frequency Neurological: No: Headache, Dizziness PHYSICAL EXAM: GENERAL: Awake, alert, and fully oriented, in no acute distress. HEAD: Normal with no signs of trauma. EYES: sclera anicteric, conjunctiva clear. NECK: Normal ROM, LUNGS: Unlabored resp on RA, No auditory wheezes, No accessory muscle use. MUSCULOSKELETAL: Moving all extremities without limitation UPPER EXTREMITIES: warm, well-perfused. LOWER EXTREMITIES: B/L Lymphedema with chronic skin changes throughout, scabbing , scaling, of distal 1/3 with some slight macaration on right side, No evidence of active skin breakdown, cellulitis or infection. 2+ DP pulses B/L, warm, well-perfused. No calf tenderness. NEUROLOGICAL: Normal speech, gait not observed. PSYCH: Cooperative. Good eye contact. Appropriate mood and affect. SKIN: Warm, dry, normal turgor, no rashes or lesions noted. Vital Signs Temperature 98.3 F 09/15/18 12:08 Pulse Rate 86 09/15/18 12:08 Respiratory Rate 18 09/15/18 12:08 Blood Pressure 116/78 09/15/18 12:08 O2 Sat by Pulse Oximetry (%) 94 L 09/15/18 12:08 Lab Results WBC 7.9 K/mm3 (4.0-10.0) 09/15/18 06:40 RBC 4.73 M/mm3 (4.00-5.60) 09/15/18 06:40 Hgb 12.9 GM/dL (11.7-16.9) 09/15/18 06:40 Hct 39.5 % (35.4-49) D 09/15/18 06:40 MCV 83.6 fl (80-96) 09/15/18 06:40 MCHC 32.5 g/dl (32.0-35.9) 09/15/18 06:40 RDW 15.3 % (11.9-15.9) 09/15/18 06:40 Plt Count 240 K/MM3 (134-434) D 09/15/18 06:40 Sodium 139 mmol/L (136-145) 09/15/18 06:40 Potassium 4.1 mmol/L (3.5-5.1) 09/15/18 06:40 Chloride 106 mmol/L (98-107) 09/15/18 06:40 Carbon Dioxide 26 mmol/L (21-32) 09/15/18 06:40 Anion Gap 8 MMOL/L (8-16) 09/15/18 06:40 BUN 23 mg/dL (7-18) H 09/15/18 06:40 Creatinine 0.9 mg/dL (0.55-1.3) 09/15/18 06:40 Random Glucose 93 mg/dL (74-106) 09/15/18 06:40 Calcium 9.4 mg/dL (8.5-10.1) 09/15/18 06:40 Problem List - Problems (1) Lymphedema Assessment/Plan: 43yo with chronic lymphedema and palpable pulses, no need for vascular intervention. 1) Silvadene cream to B/L LE daily with Curlex 2) Compressive ERI wraps to b/l LE daily 3) Re-Consult vascular PRN Evaluation and plan discussed with Dr Hirsch Code(s): I89.0 - LYMPHEDEMA, NOT ELSEWHERE CLASSIFIED
[2018-09-15] MEDS ORDERED: SILVER SULFADIAZINE 1% TOP CREAM 50 GM JAR TP SCH (12:45)
[2018-09-15] MEDS ORDERED: HEPARIN NA (PORCINE) 5,000 UNITS/ML 1ML VIAL SQ SCH (14:00)
--- NOTE | 2018-09-15 14:26 | EKG ---
Test Reason : Blood Pressure : / mmHG Vent. Rate : 081 BPM Atrial Rate : 081 BPM P-R Int : 136 ms QRS Dur : 100 ms QT Int : 378 ms P-R-T Axes : 010 032 034 degrees QTc Int : 439 ms NORMAL SINUS RHYTHM NORMAL ECG WHEN COMPARED WITH ECG OF 15-SEP-2018 03:53, NO SIGNIFICANT CHANGE WAS FOUND Confirmed by ANNETTE ADAMS MD ([id number]) on 09/15/2018 2:26:25 PM Referred By: ER ER Confirmed By:ANNETTE ADAMS MD
[2018-09-15] MEDS ORDERED: HEPARIN NA (PORCINE) 5,000 UNITS/ML 1ML VIAL ONE (14:34)
--- NOTE | 2018-09-15 15:34 | PN ---
Progress Note, Physician Chief Complaint: chest pain x 1 day no other complaints - Current Medication List Current Medications: Active Medications Aspirin (Ecotrin -) 81 mg PO DAILY [facility] Atorvastatin Calcium (Lipitor -) 20 mg PO HS [facility] Heparin Sodium (Porcine) (Heparin -) 5,000 unit SQ TID [facility] Last Admin: 09/15/18 14:38 Dose: 5,000 unit Insulin Detemir (Levemir Vial) 10 units SQ HS [facility] Lisinopril (Prinivil) 5 mg PO DAILY [facility] Metformin HCl (Glucophage -) 1,000 mg PO BID@0700,1630 [facility] Nitroglycerin (Nitrostat -) 0.3 mg SL Q5M PRN PRN Reason: FOR CHEST PAIN Pantoprazole Sodium (Protonix Packets For Oral Suspension -) 40 mg PO DAILY [facility] Silver Sulfadiazine (Silvadene -) 1 applic TP DAILY [facility] Last Admin: 09/15/18 13:48 Dose: Not Given - Objective Vital Signs: Vital Signs Temperature 98.3 F 09/15/18 12:08 Pulse Rate 86 09/15/18 12:08 Respiratory Rate 18 09/15/18 12:08 Blood Pressure 116/78 09/15/18 12:08 O2 Sat by Pulse Oximetry (%) 94 L 09/15/18 12:08 Constitutional: Yes: Other (morbidley obese) Eyes: Yes: WNL HENT: Yes: WNL Neck: Yes: WNL Cardiovascular: Yes: Regular Rate and Rhythm, Other (cp producible) Respiratory: Yes: Other ([place] sob syndrome) Gastrointestinal: Yes: WNL ...Rectal Exam: Yes: Deferred Genitourinary: Yes: WNL Musculoskeletal: Yes: WNL Extremities: Yes: WNL Edema: Yes Edema: LLE: 3+, RLE: 3+ Peripheral Pulses WNL: Yes Integumentary: Yes: WNL Neurological: Yes: WNL ...Motor Strength: WNL Psychiatric: Yes: WNL Labs: CBC, BMP 09/15/18 06:40 09/15/18 06:40 Assessment/Plan card stated no reason to admitt c,p is producible will f/u pet scan cardiac w them allison he can f/u w me any time waiking even cont all meds as is
--- NOTE | 2018-09-15 15:39 | CON.CARD ---
Cardiology Consult (text) - Consultation Consultation Note: Asked by ED, Dr. Giraldo and Dr Loyd to see Mr. Pearson for chest pressure and palpitation. The patient was seen and examined. Case discussed with Dr. Sanchez. I agree with her assessment and recommendation. In brief, Mr. Pearson is a 42 year old morbidly obese man with a PMHx of HTN, DM-II, HLD, chronic LE lymphedema who presented to ED 09/14/2018 with chest pressure and palpitations. His chest pain is non-exertional and palpitation is short lasting. He has significant left sternal border tenderness on exam. HI ruled out ECG is normal. PE as per Dr. Sanchez. Assessment: 1) Reproducible atypical chest pain, not ACS. But he has multiple risk factors of CAD. 2) Exertional palpitation, palpitation sinus tachycardia. Recommendations: 1) Start Metoprolol succinate 50 mg daily for palpitation and BP control. 2) Continue Lisinopril and atorvastatin. 3) Out-patient cardiac follow up with Dr. Ludwig for possible myocardial perfusion PET nuclear stress test. 4) The patient can be discharge from ED. Case discussed with Dr. Loyd.
[2018-09-15] MEDS ORDERED: metFORMIN HCL 500 MG TABLET (FP) PO SCH (16:30)
[2018-09-15] MEDS ORDERED: metFORMIN HCL 500 MG TABLET (FP) ONE (16:50)
[2018-09-15 19:05] VITALS: BP 118/67; PULSE 72; TEMP 98
[2018-09-15] MEDS ORDERED: INSULIN (LEVEMIR) 100 UNITS/ML UNITS SQ SCH (22:00)
[2018-09-15] MEDS ORDERED: ATORVASTATIN CA 20 MG TABLET (FP) PO SCH (22:00)
[2018-09-16] MEDS ORDERED: PANTOPRAZOLE SOD 40 MG SUSPENSION PACKET PO SCH (10:00)
[2018-09-16] MEDS ORDERED: LISINOPRIL 5 MG TABLET (FP) PO SCH (10:00)
[2018-09-16] MEDS ORDERED: ASPIRIN COATED 81 MG TABLET.EC PO SCH (10:00)
--- NOTE | 2018-09-16 13:02 | EKG ---
Test Reason : Blood Pressure : / mmHG Vent. Rate : 086 BPM Atrial Rate : 086 BPM P-R Int : 148 ms QRS Dur : 106 ms QT Int : 376 ms P-R-T Axes : -04 025 026 degrees QTc Int : 449 ms NORMAL SINUS RHYTHM NORMAL ECG WHEN COMPARED WITH ECG OF 04-APR-2017 23:50, NO SIGNIFICANT CHANGE WAS FOUND Confirmed by MD VERNON, MARY ([id number]) on 09/16/2018 1:02:11 PM Referred By: Confirmed By:MARY JUNIOR MD
== END 2018-09-15 19:04 | disposition home or self-care (01) ==
LOC: JER 03:37 → UNDOADMOB 08:22 → JERBED 08:22 → INTOOBSV 10:26 → OBSVTOIN 10:26 → JER 19:04
PROC: 3E013GC Introduction of Other Therapeutic Substance into Subcutaneous Tissue, Percutaneous Approach (ICD-10-PCS; principal; 2018-09-15)
DX: R07.9 Chest pain, unspecified (principal); I10 Essential (primary) hypertension; E78.5 Hyperlipidemia, unspecified; E11.9 Type 2 diabetes mellitus without complications; Z79.4 Long term (current) use of insulin; Z79.84 Long term (current) use of oral hypoglycemic drugs; I89.0 Lymphedema, not elsewhere classified; E66.01 Morbid (severe) obesity due to excess calories; Z68.43 Body mass index [BMI] 50.0-59.9, adult; Z88.0 Allergy status to penicillin; Z88.1 Allergy status to other antibiotic agents; Z91.14 Patient's other noncompliance with medication regimen
CPT/HCPCS: 36415; 80053; 82550; 83036; 83735; 84443; 84484; 85025; 93005; 93010; 96372; 99285-25; J1644

== ENCOUNTER 2018-09-27 06:06 | Inpatient (IN) | payer OTHER ==
[2018-09-27 06:16] VITALS: BMI 59.1
--- NOTE | 2018-09-27 06:22 | PDOC ---
History of Present Illness - General History Source: Patient Exam Limitations: No Limitations - History of Present Illness Initial Comments: 09/27/18 06:54 Pt ate steamed fish yesterday from the local [place], and now he has food poisoning. Multiple episodes of vomiting. Timing/Duration: 24 hours Severity: moderate (Pt feels weak and dehydrated) <Valencia Segundo - Last Filed: 09/27/18 06:54> <Danitza Remy - Last Filed: 09/27/18 13:05> <Corina Gutierrez - Last Filed: 09/27/18 13:12> - General Chief Complaint: Pain, Acute Stated Complaint: ABD PAIN Time Seen by Provider: 09/27/18 06:21 Past History - Travel Traveled outside of the country in the last 30 days: No Close contact w/someone who was outside of country & ill: No - Past Medical History Cardiac Disorders: Yes (HTN, HLD) COPD: No Diabetes: Yes GI Disorders: Yes (OBESITY.) HTN: Yes Hypercholesterolemia: Yes - Immunization History Immunization Up to Date: Yes - Suicide/Smoking/Psychosocial Hx Smoking History: Never smoked Have you smoked in the past 12 months: No Information on smoking cessation initiated: No Hx Alcohol Use: No Drug/Substance Use Hx: No Substance Use Type: None Hx Substance Use Treatment: No <Valencia Segundo - Last Filed: 09/27/18 06:54> <Danitza Remy - Last Filed: 09/27/18 13:05> <Corina Gutierrez - Last Filed: 09/27/18 13:12> - Past Medical History Allergies/Adverse Reactions: Allergies Allergy/AdvReac Type Severity Reaction Status Date / Time Penicillins Allergy Verified 09/27/18 06:27 piperacillin sodium Allergy Verified 09/27/18 06:27 [From Zosyn] tazobactam sodium Allergy Verified 09/27/18 06:27 [From Zosyn] Home Medications: Ambulatory Orders Cephalexin Monohydrate [Keflex -] 500 mg PO Q8H 09/27/18 metFORMIN HCL [Metformin HCl] 500 mg PO BID 09/27/18 Review of Systems - Review of Systems Constitutional: Yes: Malaise, Weakness. No: Symptoms Reported, See HPI, Chills , Diaphoresis, Fever, Loss of Appetite, Night Sweats, Weight Stable, Unintentional Wgt. Loss, Unexplained wgt Loss, Other HEENTM: No: Symptoms Reported, See HPI, Eye Pain, Blurred Vision, Tearing, Recent change in vision, Double Vision, Cataracts, Ear Pain, Ocular Prothesis, Ear Discharge, Nose Pain, Nose Congestion, Tinnitus, Nose Bleeding, Hearing Loss , Throat Pain, Throat Swelling, Mouth Pain, Dental Problems, Difficulty Swallowing, Mouth Swelling, Other Respiratory: No: Symptoms reported, See HPI, Cough, Orthopnea, Shortness of Breath, SOB with Exertion, SOB at Rest, Stridor, Wheezing, Productive cough, Hemoptysis, Other Cardiac (ROS): Yes: Irregular Heart Rate ABD/GI: Yes: Nausea, Vomiting, Indigestion, Abdominal cramping, Other (food poisoning with steamed fish from the [place] restaurant) : No: Symptoms Reported, See HPI, Burning, Dysuria, Discharge, Frequency, Flank Pain, Hematuria, Incontinence, Pain, Urgency, Testicular Mass, Testicular Swelling, Lesions, Testicular Pain, Other Musculoskeletal: No: Symptoms Reported, See HPI, Back Pain, Gout, Joint Pain, Joint Swelling, Muscle Pain, Muscle Weakness, Neck Pain, Joint Stiffness, Other Integumentary: No: Symptoms Reported, See HPI, Bruising, Change in Color, Change in Hair/Nails, Dryness, Erythema, Flushing, Lesions, Lumps, Pallor, Pruritus, Rash, Sweating, Other Neurological: Yes: Weakness. No: Symptoms reported, See HPI, Headache, Numbness , Paresthesia, Pre-Existing Deficit, Seizure, Tingling, Tremors, Unsteady Gait, Ataxia, Dizziness, Other <Valencia Segundo - Last Filed: 09/27/18 06:54> *Physical Exam - Vital Signs Last Vital Signs Temp Pulse Resp BP Pulse Ox 97.9 F 82 20 148/79 98 09/27/18 06:15 09/27/18 06:15 09/27/18 06:15 09/27/18 06:15 09/27/18 06:15 - Physical Exam General Appearance: Yes: Mild Distress, Obese. No: Nourished, Appropriately Dressed, Apparent Distress, Disheveled, Moderate Distress, Severe Distress, Alcohol on Breath, Intoxicated, Cachetic, Thin, Other HEENT: positive: EOMI, CARRI, Normal ENT Inspection, Normal Voice, Pharynx Normal , Pale Conjunctivae. negative: Symmetrical, TMs Normal, Photophobia, Scleral Icterus (R), Scleral Icterus (L), Muffled/Hoarse voice, Pharyngeal Erythema, Tonsillar Exudate, Tonsillar Erythema, Nasal Congestion, Rhinorrhea, Sinus Tenderness, Orbits, Hearing Decreased, Hearing Grossly Normal, TM Bulging, TM Dull, TM Erythema, Lesions, Mathew, Excessive drooling, Thrush, Other Neck: positive: Supple. negative: Tender, Trachea midline, Normal Thyroid, Rigid, Carotid bruit, Decreased range of motion, Stridor, Lymphadenopathy (R), Lymphadenopathy (L), Rigidity, Tender lateral, Tender midline, Thyromegaly, Other Respiratory/Chest: positive: Lungs Clear, Normal Breath Sounds. negative: Chest Tender, Respiratory Distress, Accessory Muscle Use, Labored Respiration, Rapid RR, Decreased Breath Sounds, Paradoxal Breathing, Crackles, Rales, Rhonchi , Stridor, Wheezing, Hyperresonant, Dullness, Plerual Rub, Other Cardiovascular: positive: Regular Rhythm, Regular Rate. negative: S1, S2, Edema , JVD, Murmur, Bradycardia, Tachycardia, Diastolic Murmur, Systolic Murmur, Gallop/S3, Gallop/S4, Irregularly Irregular, Irregular, Other Gastrointestinal/Abdominal: positive: Protuberent, Other (pt wotjh morbid obesity). negative: Normal Bowel Sounds, Tender, Flat, Soft, Organomegaly, Pulsatile Mass, Increased Bowel Sounds, Decreased BS, Distended, Guarding, Rebound, Tenderness, Hernia, Mass, Hepatomegaly, Spleenomegaly Musculoskeletal: positive: Normal Inspection. negative: CVA Tenderness, CVA Tenderness (R), CVA Tenderness (L), Decreased Range of Motion, Muscle Spasm, Vertebral Tenderness, Other Extremity: positive: Normal Capillary Refill, Normal Inspection. negative: Normal Range of Motion, Tender, Pelvis Stable, Coldness, Cyanosis, Delayed Capillary Refill, Pedal Edema, Swelling, Calf Tenderness, Erythema, Inflammation , Other Integumentary: negative: Normal Color, Dry, Warm, Cyanotic, Erythema, Jaundice, Mottled, Pale, Cold, Clammy, Diaphoresis, Moist, Hives, Petechiae, Rash, Swelling, Ecchymosis, Bruising, Other Neurologic: positive: stage set designer II-XII NML intact, Fully Oriented, Alert, Normal Mood/ Affect, Normal Response, Motor Strength 5/5. negative: Abnormal Cranial NS, Respond to painful stimul, Responsive, EOM Palsy, Facial Droop, Numbness, Sensory Deficit, Finger to Nose, Confused, Disoriented, Depressed Affect, Babinski, Other <Valencia Segundo - Last Filed: 09/27/18 06:54> - Vital Signs Last Vital Signs Temp Pulse Resp BP Pulse Ox 98.2 F 82 20 148/79 98 09/27/18 10:32 09/27/18 06:15 09/27/18 06:15 09/27/18 06:15 09/27/18 06:15 <Danitza Remy - Last Filed: 09/27/18 13:05> - Vital Signs Last Vital Signs Temp Pulse Resp BP Pulse Ox 98.2 F 82 20 148/79 98 09/27/18 10:32 09/27/18 06:15 09/27/18 06:15 09/27/18 06:15 09/27/18 06:15 <Corina Gutierrez - Last Filed: 09/27/18 13:12> ED Treatment Course - LABORATORY CBC & Chemistry Diagram: 09/27/18 06:40 09/27/18 06:40 - ADDITIONAL ORDERS Additional order review: Laboratory Results 09/27/18 09/27/18 09/27/18 08:27 06:40 06:40 Sodium 136 Potassium 4.6 Chloride 103 Carbon Dioxide 24 Anion Gap 9 BUN 27 H Creatinine 1.4 H Creat Clearance w eGFR 54.80 Random Glucose 131 H Calcium 9.1 Total Bilirubin 0.6 AST 23 ALT 18 Alkaline Phosphatase 68 Total Protein 7.4 Albumin 3.6 Urine Color Yellow Urine Appearance Clear Urine pH 5.0 Ur Specific [place] 1.025 Urine Protein 1+ H Urine Glucose (UA) Negative Urine Ketones 1+ H Urine Blood 3+ H Urine Nitrite Negative Urine Bilirubin Negative Urine Urobilinogen 0.2 Ur Leukocyte Esterase Negative Urine WBC (Auto) 39 Urine RBC (Auto) 300 Ur Epithelial Cells Rare Calcium Oxalate Crystal Many Urine Mucus Rare Acetone, Qual Negative 09/27/18 06:40 RBC 4.68 MCV 84.6 MCHC 32.3 RDW 15.6 MPV 8.1 Neutrophils % 83.5 H D Lymphocytes % 8.4 D Monocytes % 7.1 Eosinophils % 0.2 D Basophils % 0.8 - Medications Given in the ED: ED Medications Discontinued Medications Generic Name Dose Route Start Last Admin Trade Name Ezequiel PRN Reason Stop Dose Admin Famotidine/Sodium Chloride 20 mg in 50 mls @ 100 mls/hr 09/27/18 06:33 06:55 Pepcid 20 Mg Premixed Ivpb - IVPB 09/27/18 07:02 100 mls/hr ONCE ONE Administration Ondansetron HCl 4 mg 09/27/18 07:20 09/27/18 07:31 Zofran Injection IVPUSH 09/27/18 07:21 4 mg ONCE ONE Administration Sodium Chloride 1,000 ml 09/27/18 06:33 09/27/18 06:55 Normal Saline - IV 09/27/18 06:34 1,000 ml ONCE ONE Administration Sodium Chloride 1,000 ml 09/27/18 10:15 09/27/18 10:50 Normal Saline - IV 09/27/18 10:16 1,000 ml ONCE ONE Administration <Danitza Remy - Last Filed: 09/27/18 13:05> - LABORATORY CBC & Chemistry Diagram: 09/27/18 06:40 09/27/18 06:40 - ADDITIONAL ORDERS Additional order review: Laboratory Results 09/27/18 09/27/18 09/27/18 08:27 06:40 06:40 Sodium 136 Potassium 4.6 Chloride 103 Carbon Dioxide 24 Anion Gap 9 BUN 27 H Creatinine 1.4 H Creat Clearance w eGFR 54.80 Random Glucose 131 H Calcium 9.1 Total Bilirubin 0.6 AST 23 ALT 18 Alkaline Phosphatase 68 Total Protein 7.4 Albumin 3.6 Urine Color Yellow Urine Appearance Clear Urine pH 5.0 Ur Specific [place] 1.025 Urine Protein 1+ H Urine Glucose (UA) Negative Urine Ketones 1+ H Urine Blood 3+ H Urine Nitrite Negative Urine Bilirubin Negative Urine Urobilinogen 0.2 Ur Leukocyte Esterase Negative Urine WBC (Auto) 39 Urine RBC (Auto) 300 Ur Epithelial Cells Rare Calcium Oxalate Crystal Many Urine Mucus Rare Acetone, Qual Negative 09/27/18 06:40 RBC 4.68 MCV 84.6 MCHC 32.3 RDW 15.6 MPV 8.1 Neutrophils % 83.5 H D Lymphocytes % 8.4 D Monocytes % 7.1 Eosinophils % 0.2 D Basophils % 0.8 - RADIOLOGY Radiology Studies Ordered: Category Date Time Status ABDOMEN & PELVIS CT W/O CONTR [CT] Stat CT Scan 09/27/18 11:35 Completed CHEST PA & LAT [RAD] Stat Radiology 09/27/18 07:21 Completed - Medications Given in the ED: ED Medications Discontinued Medications Generic Name Dose Route Start Last Admin Trade Name Freq PRN Reason Stop Dose Admin Famotidine/Sodium Chloride 20 mg in 50 mls @ 100 mls/hr 09/27/18 06:33 06:55 Pepcid 20 Mg Premixed Ivpb - IVPB 09/27/18 07:02 100 mls/hr ONCE ONE Administration Morphine Sulfate 6 mg 09/27/18 12:57 09/27/18 13:07 Morphine Injection - IVPUSH 09/27/18 12:58 6 mg ONCE ONE Administration Ondansetron HCl 4 mg 09/27/18 07:20 09/27/18 07:31 Zofran Injection IVPUSH 09/27/18 07:21 4 mg ONCE ONE Administration Sodium Chloride 1,000 ml 09/27/18 06:33 09/27/18 06:55 Normal Saline - IV 09/27/18 06:34 1,000 ml ONCE ONE Administration Sodium Chloride 1,000 ml 09/27/18 10:15 09/27/18 10:50 Normal Saline - IV 09/27/18 10:16 1,000 ml ONCE ONE Administration <Corina Gutierrez - Last Filed: 09/27/18 13:12> Medical Decision Making - Medical Decision Making 09/27/18 06:55 Pt will be hydrated; labs pending. Day ER docs will reeval patient, and disposition him. <Valencia Segundo - Last Filed: 09/27/18 06:54> *DC/Admit/Observation/Transfer <Valencia Segundo - Last Filed: 09/27/18 06:54> <Danitza Remy - Last Filed: 09/27/18 13:05> - Discharge Dispostion Decision to Admit order: Yes <Corina Gutierrez - Last Filed: 09/27/18 13:12> Diagnosis at time of Disposition: Kidney stone - Discharge Dispostion Condition at time of disposition: Good - Referrals Referrals: Nimesh Loyd MD [Primary Care Provider] -
[2018-09-27] MEDS ORDERED: SODIUM CHLORIDE 0.9% 500 ML INFUS.BAG IV ONE ×2 (06:33→10:15)
[2018-09-27] MEDS ORDERED: FAMOTIDINE 20 MG/50 ML IVPB 20 MG/50 ML MG IVPB ONE ×2 (06:33→06:40)
[2018-09-27 07:02] LABS: BASO % 0.8 % (0-2.0); EOS % 0.2 % (0-4.5); HEMATOCRIT 39.5 % (35.4-49); HEMOGLOBIN 12.8 GM/dL (11.7-16.9); LYMPH % 8.4 % (8-40); MCH 27.3 pg (25.7-33.7); MCHC 32.3 g/dl (32.0-35.9); MEAN CELL VOLUME 84.6 fl (80-96); MEAN PLT VOLUME 8.1 fl (7.5-11.1); MONO % 7.1 % (3.8-10.2); NEUT % 83.5 % (42.8-82.8); PLATELET COUNT 224 K/MM3 (134-434); RBC 4.68 M/mm3 (4.00-5.60); RDW 15.6 % (11.9-15.9); WHITE BLOOD COUNT 9.3 K/mm3 (4.0-10.0)
[2018-09-27] MEDS ORDERED: ONDANSETRON 4 MG/2 ML VIAL IVPUSH ONE (07:20)
[2018-09-27] MEDS ORDERED: ONDANSETRON 4 MG/2 ML VIAL ONE (07:24)
[2018-09-27 07:56] LABS: ALBUMIN 3.6 g/dl (3.4-5.0); ALK PHOS 68 U/L (45-117); ANION GAP 9 MMOL/L (8-16); BILIRUBIN,TOTAL 0.6 mg/dL (0.2-1); BLOOD UREA NITROGEN 27 mg/dL (7-18); CALCIUM 9.1 mg/dL (8.5-10.1); CHLORIDE 103 mmol/L (98-107); CO2 24 mmol/L (21-32); CREATININE 1.4 mg/dL (0.55-1.3); GLUCOSE,RANDOM 131 mg/dL (74-106); POTASSIUM 4.6 mmol/L (3.5-5.1); SGOT/AST 23 U/L (15-37); SGPT/ALT 18 U/L (13-61); SODIUM 136 mmol/L (136-145); TOT PROT 7.4 g/dl (6.4-8.2)
[2018-09-27 09:21] LABS: URINE APPEARANCE Clear; URINE BILIRUBIN Negative (<2.0 mg/dL); URINE COLOR Yellow; URINE GLUCOSE (UA) Negative (NEGATIVE); URINE KETONE 1+ (NEGATIVE); URINE LEUK ESTERASE Negative (NEGATIVE); URINE NITRITE Negative (NEGATIVE); URINE PROTEIN 1+ (NEGATIVE); URINE UROBILINOGEN 0.2 mg/dL (0.2-1.0)
[2018-09-27 10:04] LABS: CALCIUM OXALATE CRYSTALS MANY /hpf (NONE SEEN); EPI CELLS RARE /HPF (FEW); URINE MUCUS RARE
[2018-09-27] MEDS ORDERED: morphine CARPU-JECT 4 MG/1 ML DISP.SYRIN IVPUSH ONE (12:57)
[2018-09-27] MEDS ORDERED: MORPHINE SULFATE 2 MG/ML VIAL ONE (13:01)
[2018-09-27] MEDS ORDERED: morphine SULFATE 4 MG/ML VIAL ONE (13:01)
[2018-09-27] MEDS ORDERED: CIPROFLOXACIN 400 MG/D5W 400 MG/200 ML IVPB IVPB ONE (13:14)
[2018-09-27] MEDS ORDERED: HYDROmorphone HCL 2 MG TABLET PO PRN (15:59)
[2018-09-27] MEDS: SODIUM CHLORIDE 1,000 ML IV SCH ×2 (16:29→20:49)
[2018-09-27] MEDS ORDERED: METOCLOPRAMIDE HCL INJECTION 10 MG/2 ML VIAL IVPUSH ONE (16:30)
--- NOTE | 2018-09-27 18:22 | CON.ID ---
Consult - History of Present Illness History of Present Illness: 43 y.o. male with morbid obesity, HTN, HLD, and UTI/nephrolithiasis (10 yrs ago ) presents with c/o nausea and vomiting episodes since last night. Pt states he developed Rt sided abdominal dull discomfort about 2 hrs after eating dinner which progressively worsened. Had multiple episodes of vomiting throughout the night. He attributed it to eating [place] food for dinner. Pt denies fever or diarrhea. No report of chest pain, shortness of breath, cough, headache, dysuria. In the ER pt was afebrile, without leukocytosis but CT Abd/Pelvis reveals b/l obstructing ureteral stones with hydronephrosis. Currently patient without abd pain since given pain medication and denies nausea. He has RLE ulcers which he states he f/u at wound care weekly for, improving. - History Source History Provided By: Patient Limitations to Obtaining History: No Limitations - Past Medical History Cardio/Vascular: Yes: HTN Renal/: Yes: Renal Calculi, UTI - Alcohol/Substance Use Hx Alcohol Use: No - Smoking History Smoking history: Never smoked Have you smoked in the past 12 months: No - Social History Usual Living Arrangement: With Parent ADL: Independent History of Recent Travel: No Home Medications - Allergies Allergies/Adverse Reactions: Allergies Allergy/AdvReac Type Severity Reaction Status Date / Time Penicillins Allergy Verified 09/27/18 06:27 piperacillin sodium Allergy Verified 09/27/18 06:27 [From Zosyn] tazobactam sodium Allergy Verified 09/27/18 06:27 [From Zosyn] - Home Medications Home Medications: Ambulatory Orders Cephalexin Monohydrate [Keflex -] 500 mg PO Q8H 09/27/18 metFORMIN HCL [Metformin HCl] 500 mg PO BID 09/27/18 Review of Systems - Review of Systems Constitutional: reports: Chills Eyes: reports: No Symptoms HENT: reports: No Symptoms Neck: reports: No Symptoms Cardiovascular: reports: No Symptoms Respiratory: reports: No Symptoms Gastrointestinal: reports: Abdominal Pain (Rt sided) Genitourinary: reports: No Symptoms Musculoskeletal: reports: No Symptoms Integumentary: reports: No Symptoms Neurological: reports: No Symptoms Endocrine: reports: No Symptoms Hematology/Lymphatic: reports: No Symptoms Psychiatric: reports: No Symptoms Physical Exam Vital Signs: Vital Signs Temperature 98.2 F 09/27/18 15:45 Pulse Rate 88 09/27/18 15:45 Respiratory Rate 22 H 09/27/18 15:45 Blood Pressure 150/80 09/27/18 15:45 O2 Sat by Pulse Oximetry (%) 96 09/27/18 14:10 Constitutional: Yes: No Distress, Calm Eyes: Yes: Conjunctiva Clear HENT: Yes: Atraumatic Neck: Yes: Supple Cardiovascular: Yes: Regular Rate and Rhythm Respiratory: Yes: CTA Bilaterally Gastrointestinal: Yes: Normal Bowel Sounds, Soft, Abdomen, Obese Renal/: Yes: WNL Musculoskeletal: Yes: WNL Integumentary: Yes: WNL Neurological: Yes: Alert, Oriented Labs: CBC, BMP 09/27/18 06:40 09/27/18 06:40 Imaging - Results X-ray: Report Reviewed Cat Scan: Report Reviewed Problem List - Problems (1) Kidney stone Code(s): N20.0 - CALCULUS OF KIDNEY (2) Acute urinary retention Code(s): R33.8 - OTHER RETENTION OF URINE (3) UTI (urinary tract infection) Code(s): N39.0 - URINARY TRACT INFECTION, SITE NOT SPECIFIED (4) Uncontrolled diabetes mellitus Code(s): E11.65 - TYPE 2 DIABETES MELLITUS WITH HYPERGLYCEMIA Qualifiers: Diabetes mellitus type: due to underlying condition (5) HLD (hyperlipidemia) Code(s): E78.5 - HYPERLIPIDEMIA, UNSPECIFIED (6) HTN (hypertension) Code(s): I10 - ESSENTIAL (PRIMARY) HYPERTENSION (7) Wound of right leg Code(s): S81.801A - UNSPECIFIED OPEN WOUND, RIGHT LOWER LEG, INITIAL ENCOUNTER Assessment/Plan 43 y.o. male with PMH of UTI/Nephrolithiasis, HTN, HLD, DM, and morbid obesity presenting with episodes of n/v and Rt abdominal pain that began the prior evening Gastroenteritis Ureteral stones/bilateral hydronephrosis UTI RLE wounds -- cont. Levaquin empirically for now, hydration -- f/u urine culture results -- Urology evaluation, monitor renal function
[2018-09-28] MEDS ORDERED: DOCUSATE SODIUM 100 MG CAPSULE (FP) PO ONE (06:33)
[2018-09-28] MEDS: SODIUM CHLORIDE 1,000 ML IV SCH ×3 (06:42→18:00)
[2018-09-28] MEDS: INSULIN SLIDING SCALE (NOVOLOG) 1 VIAL SQ SCH ×4 (06:45→22:07)
[2018-09-28 08:01] LABS: BASO % 1.1 % (0-2.0); EOS % 0.1 % (0-4.5); HEMATOCRIT 37.6 % (35.4-49); LYMPH % 14.1 % (8-40); MCH 27.2 pg (25.7-33.7); MEAN CELL VOLUME 85.1 fl (80-96); MEAN PLT VOLUME 8.1 fl (7.5-11.1); MONO % 15.6 % (3.8-10.2); NEUT % 69.1 % (42.8-82.8); PLATELET COUNT 213 K/MM3 (134-434); RBC 4.42 M/mm3 (4.00-5.60); RDW 15.5 % (11.9-15.9); WHITE BLOOD COUNT 9.5 K/mm3 (4.0-10.0)
[2018-09-28 08:44] LABS: ALBUMIN 3.2 g/dl (3.4-5.0); ALK PHOS 61 U/L (45-117); ANION GAP 10 MMOL/L (8-16); BILIRUBIN,TOTAL 0.4 mg/dL (0.2-1); BLOOD UREA NITROGEN 25 mg/dL (7-18); CALCIUM 8.4 mg/dL (8.5-10.1); CHLORIDE 105 mmol/L (98-107); CO2 22 mmol/L (21-32); CREATININE 2.4 mg/dL (0.55-1.3); GLUCOSE,RANDOM 125 mg/dL (74-106); POTASSIUM 4.2 mmol/L (3.5-5.1); SGOT/AST 20 U/L (15-37); SGPT/ALT 16 U/L (13-61); SODIUM 137 mmol/L (136-145); TOT PROT 6.9 g/dl (6.4-8.2)
[2018-09-28] MEDS: ASPIRIN COATED 81 MG TABLET.EC PO SCH (10:25)
[2018-09-28] MEDS: PANTOPRAZOLE SODIUM 40 MG VIAL IVPUSH SCH (10:34)
--- NOTE | 2018-09-28 11:03 | HP ---
Admitting History and Physical - Admission Chief Complaint: c/o n/v after eating fish? no other complaints. ct showed corina renal stones ? inmm History Source: Patient Limitations to Obtaining History: Other (morbid obesity) - Past Medical History Cardiovascular: Yes: HTN Gastrointestinal: Yes: Other (less n/v) Renal/: Yes: Renal Calculi, UTI Infectious Disease: Yes: MRSA - Past Surgical History Past Surgical History: Yes: None - Smoking History Smoking history: Never smoked Have you smoked in the past 12 months: No - Alcohol/Substance Use Hx Alcohol Use: No - Social History Usual Living Arrangement: Yes: Alone ADL: Independent History of Recent Travel: No Home Medications - Allergies Allergies/Adverse Reactions: Allergies Allergy/AdvReac Type Severity Reaction Status Date / Time Penicillins Allergy Verified 09/27/18 06:27 piperacillin sodium Allergy Verified 09/27/18 06:27 [From Zosyn] tazobactam sodium Allergy Verified 09/27/18 06:27 [From Zosyn] - Home Medications Home Medications: Ambulatory Orders Cephalexin Monohydrate [Keflex -] 500 mg PO Q8H 09/27/18 metFORMIN HCL [Metformin HCl] 500 mg PO BID 09/27/18 Family Disease History - Family Disease History Family History: Unremarkable Review of Systems - Review of Systems Constitutional: reports: No Symptoms Eyes: reports: No Symptoms HENT: reports: No Symptoms Neck: reports: No Symptoms Cardiovascular: reports: No Symptoms Respiratory: reports: No Symptoms Gastrointestinal: reports: No Symptoms Genitourinary: reports: No Symptoms Breasts: reports: No Symptoms Reported Musculoskeletal: reports: No Symptoms Integumentary: reports: Wound (rt leg? mrsa) Neurological: reports: No Symptoms Endocrine: reports: Other (dm) Hematology/Lymphatic: reports: No Symptoms Psychiatric: reports: No Symptoms Physical Examination Vital Signs: Vital Signs Temperature 98.3 F 09/28/18 06:00 Pulse Rate 74 09/28/18 06:00 Respiratory Rate 20 09/28/18 06:00 Blood Pressure 158/81 09/28/18 06:00 O2 Sat by Pulse Oximetry (%) 97 09/27/18 21:00 Constitutional: Yes: Other (obese) Eyes: Yes: WNL HENT: Yes: WNL Neck: Yes: WNL Cardiovascular: Yes: WNL Respiratory: Yes: WNL Gastrointestinal: Yes: Other (ruq ? pain scale 3) ...Rectal Exam: Yes: Deferred Renal/: Yes: WNL Breast(s): Yes: WNL Musculoskeletal: Yes: WNL Extremities: Yes: WNL Edema: Yes Edema: LLE: 3+, RLE: 3+ Peripheral Pulses WNL: Yes Integumentary: Yes: Venous Stasis Changes, Other (lyphodema ;/ wd rt leg ? mrsa) Neurological: Yes: WNL, Unsteady Gait Labs: CBC, BMP 09/28/18 07:09 09/28/18 07:09 Problem List - Problems (1) Wound cellulitis Code(s): L03.90 - CELLULITIS, UNSPECIFIED (2) Wound of right leg Code(s): S81.801A - UNSPECIFIED OPEN WOUND, RIGHT LOWER LEG, INITIAL ENCOUNTER Assessment/Plan wd culture cont iv ? crf mild gu f/u cont atbx chk labs in am nl bm tolerating diet oob dvt w seq comp devices ? contact precautions id for rt leg wd wd care rt leg
--- NOTE | 2018-09-28 14:26 | PN ---
Progress Note, Physician History of Present Illness: Pt remains afebrile, without acute distress. No further vomiting episodes. Denies diarrhea. Has some Rt flank pain extending to Rt Lower abdomen. Urinating freely despite rising creatinine. Denies RLE pain. - Current Medication List Current Medications: Active Medications Aspirin (Ecotrin -) 81 mg PO DAILY [facility] Last Admin: 09/28/18 10:25 Dose: 81 mg Hydromorphone HCl (Dilaudid -) 2 mg PO Q8H PRN PRN Reason: PAIN LEVEL 4 - 6 Levofloxacin (Levaquin 500 Mg Premixed Ivpb -) 500 mg in 100 mls @ 100 mls/hr IVPB DAILY NANCY; Protocol Last Admin: 09/28/18 10:25 Dose: 100 mls/hr Sodium Chloride (Normal Saline -) 1,000 mls @ 100 mls/hr IV ASDIR NANCY Last Admin: 09/28/18 06:42 Dose: 100 mls/hr Insulin Aspart (Novolog Vial Sliding Scale -) 1 vial SQ ACHS NANCY; Protocol Last Admin: 09/28/18 11:55 Dose: Not Given Pantoprazole Sodium (Protonix Iv) 40 mg IVPUSH DAILY NANCY Last Admin: 09/28/18 10:34 Dose: 40 mg - Objective Vital Signs: Vital Signs Temperature 98.3 F 09/28/18 06:00 Pulse Rate 74 09/28/18 06:00 Respiratory Rate 20 09/28/18 06:00 Blood Pressure 158/81 09/28/18 06:00 O2 Sat by Pulse Oximetry (%) 97 09/28/18 09:00 Constitutional: Yes: No Distress, Calm Cardiovascular: Yes: Regular Rate and Rhythm Respiratory: Yes: Regular Gastrointestinal: Yes: Normal Bowel Sounds, Soft, Abdomen, Obese Genitourinary: Yes: WNL Musculoskeletal: Yes: WNL Extremities: Yes: Erythema Wound/Incision: Yes: Other (RLE chronic erythema, ulcerations with mild drainage , denies tenderness) Neurological: Yes: Alert Labs: CBC, BMP 09/28/18 07:09 09/28/18 07:09 Microbiology 09/27/18 08:27 Urine - Urine Clean Catch Urine Culture - Final NO GROWTH OBTAINED Problem List - Problems (1) Kidney stone Code(s): N20.0 - CALCULUS OF KIDNEY (2) Acute urinary retention Code(s): R33.8 - OTHER RETENTION OF URINE (3) UTI (urinary tract infection) Code(s): N39.0 - URINARY TRACT INFECTION, SITE NOT SPECIFIED (4) Uncontrolled diabetes mellitus Code(s): E11.65 - TYPE 2 DIABETES MELLITUS WITH HYPERGLYCEMIA Qualifiers: Diabetes mellitus type: due to underlying condition (5) HLD (hyperlipidemia) Code(s): E78.5 - HYPERLIPIDEMIA, UNSPECIFIED (6) HTN (hypertension) Code(s): I10 - ESSENTIAL (PRIMARY) HYPERTENSION Assessment/Plan 43 y.o. male with PMH of UTI/Nephrolithiasis, HTN, HLD, DM, and morbid obesity presenting with episodes of n/v and Rt abdominal pain that began the prior evening Acute gastroenteritis - no further vomiting, no diarrhea Ureteral stones/bilateral hydronephrosis, suspected UTI ROSALVA - creatinine rising RLE wounds/erythema - r/o infection -- cont. Levaquin empirically for now, add doxycycline po -- obtain wound culture from RLE ulcers -- f/u urine culture results -- recommend Urology evaluation -- monitor renal function closely pt afebrile/without leukocytosis
--- NOTE | 2018-09-28 16:25 | PN ---
Progress Note (short form) - Note Progress Note: UROLOGY NOTE. pt. with corina. hydronephrosis, will repeat ultrasound in am, and schedual for poss. laser lithotripsy in an.CONSULT DICTATED.
[2018-09-28] MEDS: TAMSULOSIN HCL 0.4 MG CAP PO SCH (16:35)
[2018-09-28] MEDS: DOXYCYCLINE HYCLATE 100 MG CAPSULE PO SCH (17:56)
--- NOTE | 2018-09-28 19:57 | CONS ---
DATE OF CONSULTATION: DATE OF DICTATION: 09/28/2018 The patient is a 43-year-old male admitted via the emergency room with acute onset of bilateral flank pain. The patient also had nausea and vomiting. He states that this began early this morning after eating fish. The patient does have history of nephrolithiasis. He does have history of morbid obesity. Patient is also a hypertensive, has also had dyslipidemia. He denies any tobacco or ethanol use. He is allergic to PENICILLIN and ZOSYN. He was found to have tenderness in both flanks. There was radiation to the right and left lower quadrant. His left lower extremity revealed an open ulcer, which was positive for MRSA. Patient's temperature is 98.3, blood pressure 158/81, respirations 20, and pulse was 74. In the emergency room, his white count was 9.5, hemoglobin 12, hematocrit 37.6, platelets 213, BUN 25, creatinine 2.4, random glucose was 125. In the emergency room, the patient underwent a CAT scan of his abdomen and pelvis without contrast. This revealed a 4 mm right mid ureteral stone with proximal moderate hydroureteronephrosis. There was also a 6-mm proximal left ureteral stone with mild hydroureteronephrosis. There were also multiple smaller stones in the left kidney. There was no evidence of bowel obstruction or intraabdominal pathology. The patient at present is complaining of moderate pain. His pain level is between 4 to 6. He is presently on Levaquin. IMPRESSION AT PRESENT: Bilateral hydroureteronephrosis secondary to bilateral ureteral calculi. There is obstructive azotemia. Will recommend straining his urine, increase n.p.o. and IV fluid, add in Flomax to his medication for its alpha adrenergic blocking effect. Will also strain his urine. Patient will have a repeat renal and pelvic ultrasound in the morning. If the hydronephrosis is still present, he will undergo a cystourethroscopy with bilateral ureteroscopies, possible bilateral ureteral laser lithotripsies, and bilateral JJ stent placement. Once this is done, patient will need a stone workup as an outpatient. Will follow with you. ZOË DEAL M.D. [id number]
[2018-09-29] MEDS: SODIUM CHLORIDE 1,000 ML IV SCH ×3 (05:47→18:59)
[2018-09-29] MEDS: INSULIN SLIDING SCALE (NOVOLOG) 1 VIAL SQ SCH ×4 (06:05→21:45)
[2018-09-29 06:42] LABS: ANION GAP 5 MMOL/L (8-16); BLOOD UREA NITROGEN 20 mg/dL (7-18); CALCIUM 8.6 mg/dL (8.5-10.1); CHLORIDE 110 mmol/L (98-107); CO2 23 mmol/L (21-32); CREATININE 1.6 mg/dL (0.55-1.3); GLUCOSE,RANDOM 96 mg/dL (74-106); POTASSIUM 3.7 mmol/L (3.5-5.1); SODIUM 139 mmol/L (136-145)
[2018-09-29] MEDS: TAMSULOSIN HCL 0.4 MG CAP PO SCH (08:27)
[2018-09-29] MEDS: DOXYCYCLINE HYCLATE 100 MG CAPSULE PO SCH ×2 (09:54→17:06)
[2018-09-29] MEDS: PANTOPRAZOLE SODIUM 40 MG VIAL IVPUSH SCH (09:54)
[2018-09-29] MEDS: ASPIRIN COATED 81 MG TABLET.EC PO SCH (09:55)
--- NOTE | 2018-09-29 13:16 | PN ---
Progress Note, Physician History of Present Illness: Pt remains afebrile, without acute distress. No further vomiting episodes. Denies diarrhea. flank pain improved - Current Medication List Current Medications: Active Medications Aspirin (Ecotrin -) 81 mg PO DAILY [facility] Last Admin: 09/29/18 09:55 Dose: Not Given Doxycycline Hyclate (Vibramycin -) 100 mg PO BID@1000,1800 [facility] Last Admin: 09/29/18 09:54 Dose: 100 mg Hydromorphone HCl (Dilaudid -) 2 mg PO Q8H PRN PRN Reason: PAIN LEVEL 4 - 6 Levofloxacin (Levaquin 500 Mg Premixed Ivpb -) 500 mg in 100 mls @ 100 mls/hr IVPB DAILY [facility]; Protocol Last Admin: 09/29/18 09:55 Dose: 100 mls/hr Sodium Chloride (Normal Saline -) 1,000 mls @ 100 mls/hr IV ASDIR [facility] Last Admin: 09/29/18 05:47 Dose: 100 mls/hr Insulin Aspart (Novolog Vial Sliding Scale -) 1 vial SQ ACHS [facility]; Protocol Last Admin: 09/29/18 11:29 Dose: Not Given Pantoprazole Sodium (Protonix Iv) 40 mg IVPUSH DAILY [facility] Last Admin: 09/29/18 09:54 Dose: 40 mg Tamsulosin HCl (Flomax -) 0.8 mg PO DAILY@0830 [facility] Last Admin: 09/29/18 08:27 Dose: Not Given - Objective Vital Signs: Vital Signs Temperature 98.1 F 09/29/18 08:57 Pulse Rate 89 09/29/18 08:57 Respiratory Rate 20 09/29/18 08:57 Blood Pressure 142/84 09/29/18 08:57 O2 Sat by Pulse Oximetry (%) 97 09/29/18 09:00 Constitutional: Yes: No Distress, Calm Neck: Yes: Supple Cardiovascular: Yes: Regular Rate and Rhythm Respiratory: Yes: Regular, CTA Bilaterally Gastrointestinal: Yes: Normal Bowel Sounds, Soft Genitourinary: Yes: CVA Tenderness - Left Extremities: Yes: WNL Neurological: Yes: Alert, Oriented Psychiatric: Yes: Alert, Oriented Labs: CBC, BMP 09/28/18 07:09 09/29/18 05:30 Assessment/Plan Problem List - Problems (1) Kidney stone Code(s): N20.0 - CALCULUS OF KIDNEY (2) Acute urinary retention Code(s): R33.8 - OTHER RETENTION OF URINE (3) UTI (urinary tract infection) Code(s): N39.0 - URINARY TRACT INFECTION, SITE NOT SPECIFIED (4) Uncontrolled diabetes mellitus Code(s): E11.65 - TYPE 2 DIABETES MELLITUS WITH HYPERGLYCEMIA Qualifiers: Diabetes mellitus type: due to underlying condition (5) HLD (hyperlipidemia) Code(s): E78.5 - HYPERLIPIDEMIA, UNSPECIFIED (6) HTN (hypertension) Code(s): I10 - ESSENTIAL (PRIMARY) HYPERTENSION Assessment/Plan 43 y.o. male with PMH of UTI/Nephrolithiasis, HTN, HLD, DM, and morbid obesity presenting with episodes of n/v and Rt abdominal pain that began the prior evening Acute gastroenteritis - no further vomiting, no diarrhea Ureteral stones/bilateral hydronephrosis, suspected UTI ROSALVA - creatinine rising RLE wounds/erythema - r/o infection -- cont. Levaquin empirically for now, add doxycycline po -- await for wound cx -- f/u urine culture results -- patient going to or for stent placement
--- NOTE | 2018-09-29 18:31 | PN ---
Progress Note (short form) - Note Progress Note: UROLOGY NOTE. pt. with corina. flank pain and tendernece renal sone 2.4 cm lt. renal stone u/a heme++ plan. cysto,poss. lithotripsy and jj stentd in am.
--- NOTE | 2018-09-29 20:25 | PN ---
Progress Note, Physician Chief Complaint: less rt cvat nl bm tolerarting diet anxouis to hospital - Current Medication List Current Medications: Active Medications Aspirin (Ecotrin -) 81 mg PO DAILY [facility] Last Admin: 09/29/18 09:55 Dose: Not Given Doxycycline Hyclate (Vibramycin -) 100 mg PO BID@1000,1800 [facility] Last Admin: 09/29/18 17:06 Dose: 100 mg Hydromorphone HCl (Dilaudid -) 2 mg PO Q8H PRN PRN Reason: PAIN LEVEL 4 - 6 Levofloxacin (Levaquin 500 Mg Premixed Ivpb -) 500 mg in 100 mls @ 100 mls/hr IVPB DAILY [facility]; Protocol Last Admin: 09/29/18 09:55 Dose: 100 mls/hr Sodium Chloride (Normal Saline -) 1,000 mls @ 100 mls/hr IV ASDIR [facility] Last Admin: 09/29/18 18:59 Dose: 100 mls/hr Insulin Aspart (Novolog Vial Sliding Scale -) 1 vial SQ ACHS [facility]; Protocol Last Admin: 09/29/18 17:02 Dose: Not Given Pantoprazole Sodium (Protonix Iv) 40 mg IVPUSH DAILY [facility] Last Admin: 09/29/18 09:54 Dose: 40 mg Tamsulosin HCl (Flomax -) 0.8 mg PO DAILY@0830 [facility] Last Admin: 09/29/18 08:27 Dose: Not Given - Objective Vital Signs: Vital Signs Temperature 98.1 F 09/29/18 14:00 Pulse Rate 74 09/29/18 14:00 Respiratory Rate 21 H 09/29/18 14:00 Blood Pressure 142/87 09/29/18 14:00 O2 Sat by Pulse Oximetry (%) 97 09/29/18 09:00 Constitutional: Yes: Obese Labs: CBC, BMP 09/28/18 07:09 09/29/18 05:30 Problem List - Problems (1) Wound cellulitis Code(s): L03.90 - CELLULITIS, UNSPECIFIED (2) Wound of right leg Code(s): S81.801A - UNSPECIFIED OPEN WOUND, RIGHT LOWER LEG, INITIAL ENCOUNTER Assessment/Plan jj stent lithotripsy in am d/c home after sx spoke to pt will stay ungtil tommorrow
[2018-09-29 21:33] LABS: INR 1.28 (0.83-1.09); PROTHROMBIN TIME (PATIENT) 15.1 SEC (9.7-13.0)
[2018-09-30] MEDS: SODIUM CHLORIDE 1,000 ML IV SCH (03:00)
[2018-09-30] MEDS: INSULIN SLIDING SCALE (NOVOLOG) 1 VIAL SQ SCH (06:28)
[2018-09-30 07:42] LABS: EOS % 2.4 % (0-4.5); HEMATOCRIT 36.6 % (35.4-49); HEMOGLOBIN 11.6 GM/dL (11.7-16.9); LYMPH % 25.1 % (8-40); MCHC 31.7 g/dl (32.0-35.9); MEAN CELL VOLUME 85.1 fl (80-96); MONO % 13.7 % (3.8-10.2); NEUT % 57.8 % (42.8-82.8); PLATELET COUNT 215 K/MM3 (134-434); RBC 4.29 M/mm3 (4.00-5.60); RDW 15.4 % (11.9-15.9); WHITE BLOOD COUNT 7.1 K/mm3 (4.0-10.0)
[2018-09-30 08:03] LABS: ANION GAP 8 MMOL/L (8-16); BLOOD UREA NITROGEN 17 mg/dL (7-18); CALCIUM 8.7 mg/dL (8.5-10.1); CHLORIDE 111 mmol/L (98-107); CO2 24 mmol/L (21-32); CREATININE 1.2 mg/dL (0.55-1.3); GLUCOSE,RANDOM 91 mg/dL (74-106); POTASSIUM 4.2 mmol/L (3.5-5.1); SODIUM 143 mmol/L (136-145)
[2018-09-30] MEDS: TAMSULOSIN HCL 0.4 MG CAP PO SCH (10:04)
[2018-09-30] MEDS: ASPIRIN COATED 81 MG TABLET.EC PO SCH (10:04)
[2018-09-30] MEDS: PANTOPRAZOLE SODIUM 40 MG VIAL IVPUSH SCH (10:14)
[2018-09-30] MEDS: DOXYCYCLINE HYCLATE 100 MG CAPSULE PO SCH (10:14)
[2018-09-30] MEDS ORDERED: fentaNYL CITRATE 250 MCG/5 ML VIAL ONE (10:18)
[2018-09-30] MEDS ORDERED: PROPOFOL 20 ML ONE ×3 (10:18→11:59)
[2018-09-30] MEDS ORDERED: SUCCINYLCHOLINE CHLORIDE 200 MG/10 ML VIAL ONE (10:19)
[2018-09-30] MEDS ORDERED: MIDAZOLAM HCL 2 MG/2 ML SINGLE DOSE VIAL ONE ×2 (10:19→11:10)
[2018-09-30] MEDS ORDERED: ROCURONIUM BROMIDE 50 MG/5 ML VIAL ONE (10:19)
--- NOTE | 2018-09-30 10:42 | PN ---
Progress Note, Physician History of Present Illness: pt in hoiling for rt and lt? stent renal onliy ? constipated - Current Medication List Current Medications: Active Medications Aspirin (Ecotrin -) 81 mg PO DAILY [facility] Last Admin: 09/30/18 10:04 Dose: Not Given Doxycycline Hyclate (Vibramycin -) 100 mg PO BID@1000,1800 [facility] Last Admin: 09/30/18 10:14 Dose: Not Given Hydromorphone HCl (Dilaudid -) 2 mg PO Q8H PRN PRN Reason: PAIN LEVEL 4 - 6 Levofloxacin (Levaquin 500 Mg Premixed Ivpb -) 500 mg in 100 mls @ 100 mls/hr IVPB DAILY [facility]; Protocol Last Admin: 09/30/18 10:14 Dose: 100 mls/hr Sodium Chloride (Normal Saline -) 1,000 mls @ 100 mls/hr IV ASDIR [facility] Last Admin: 09/30/18 03:00 Dose: 100 mls/hr Insulin Aspart (Novolog Vial Sliding Scale -) 1 vial SQ ACHS [facility]; Protocol Last Admin: 09/30/18 06:28 Dose: Not Given Pantoprazole Sodium (Protonix Iv) 40 mg IVPUSH DAILY [facility] Last Admin: 09/30/18 10:14 Dose: 40 mg Tamsulosin HCl (Flomax -) 0.8 mg PO DAILY@0830 [facility] Last Admin: 09/30/18 10:04 Dose: Not Given - Objective Vital Signs: Vital Signs Temperature 97.2 F L 09/30/18 10:19 Pulse Rate 70 09/30/18 10:19 Respiratory Rate 18 09/30/18 10:19 Blood Pressure 102/50 L 09/30/18 10:19 O2 Sat by Pulse Oximetry (%) 97 09/29/18 21:00 Constitutional: Yes: Well Nourished, Obese Eyes: Yes: WNL HENT: Yes: WNL Neck: Yes: WNL Cardiovascular: Yes: WNL Respiratory: Yes: WNL Gastrointestinal: Yes: WNL ...Rectal Exam: Yes: Deferred Genitourinary: Yes: CVA Tenderness - Right Breast(s): Yes: WNL Musculoskeletal: Yes: WNL Extremities: Yes: Other (lyhpodema) Edema: Yes Edema: LUE: 3+ Labs: CBC, BMP 09/30/18 07:00 09/30/18 07:00 INR, PTT INR 1.28 (0.83-1.09) H 09/29/18 20:30 Problem List - Problems (1) Wound cellulitis Code(s): L03.90 - CELLULITIS, UNSPECIFIED (2) Wound of right leg Code(s): S81.801A - UNSPECIFIED OPEN WOUND, RIGHT LOWER LEG, INITIAL ENCOUNTER Assessment/Plan pt needs to go home postprocedure therefor stent only and lithotripsy out pt ? po axbs by yudy cont all meds at home will do d/c postop appt w yudy uotpt miralax outpt
[2018-09-30] MEDS ORDERED: POLYETHYLENE GLYCOL 3350 119 GM BTL PO ONE (11:00)
[2018-09-30] MEDS ORDERED: LIDOCAINE HCL/PF 2% SDV 5ML VIAL ONE (11:19)
--- NOTE | 2018-09-30 12:19 | OP ---
Operative Note - Note: Operative Date: 09/30/18 Pre-Operative Diagnosis: Bilateral Nephroliathiasis Findings: Cysto bilateral stent placements Post-Operative Diagnosis: Same as Pre-op Surgeon: Anoop Yarbrough Anesthesia: General Operative Report Dictated: Yes
--- NOTE | 2018-09-30 12:44 | PN ---
Progress Note, Physician History of Present Illness: patient post stent placement no complaints - Current Medication List Current Medications: Active Medications Aspirin (Ecotrin -) 81 mg PO DAILY [facility] Last Admin: 09/30/18 10:04 Dose: Not Given Levofloxacin (Levaquin 500 Mg Premixed Ivpb -) 500 mg in 100 mls @ 100 mls/hr IVPB DAILY [facility]; Protocol Last Admin: 09/30/18 10:14 Dose: 100 mls/hr Sodium Chloride (Normal Saline -) 1,000 mls @ 100 mls/hr IV ASDIR [facility] Last Admin: 09/30/18 03:00 Dose: 100 mls/hr Pantoprazole Sodium (Protonix Iv) 40 mg IVPUSH DAILY [facility] Last Admin: 09/30/18 10:14 Dose: 40 mg Tamsulosin HCl (Flomax -) 0.8 mg PO DAILY@0830 [facility] Last Admin: 09/30/18 10:04 Dose: Not Given - Objective Vital Signs: Vital Signs Temperature 97.2 F L 09/30/18 10:19 Pulse Rate 70 09/30/18 10:19 Respiratory Rate 18 09/30/18 10:19 Blood Pressure 102/50 L 09/30/18 10:19 O2 Sat by Pulse Oximetry (%) 97 09/30/18 09:00 Constitutional: Yes: No Distress, Calm HENT: Yes: Atraumatic Cardiovascular: Yes: Regular Rate and Rhythm Respiratory: Yes: Regular, CTA Bilaterally Gastrointestinal: Yes: Normal Bowel Sounds, Soft Musculoskeletal: Yes: Other Extremities: Yes: Other (wound) Integumentary: Yes: Other Wound/Incision: Yes: Dressing Dry and Intact Neurological: Yes: Alert, Oriented Psychiatric: Yes: Alert, Oriented Labs: CBC, BMP 09/30/18 07:00 09/30/18 07:00 INR, PTT INR 1.28 (0.83-1.09) H 09/29/18 20:30 Assessment/Plan Problem List - Problems (1) Kidney stone Code(s): N20.0 - CALCULUS OF KIDNEY (2) Acute urinary retention Code(s): R33.8 - OTHER RETENTION OF URINE (3) UTI (urinary tract infection) Code(s): N39.0 - URINARY TRACT INFECTION, SITE NOT SPECIFIED (4) Uncontrolled diabetes mellitus Code(s): E11.65 - TYPE 2 DIABETES MELLITUS WITH HYPERGLYCEMIA Qualifiers: Diabetes mellitus type: due to underlying condition (5) HLD (hyperlipidemia) Code(s): E78.5 - HYPERLIPIDEMIA, UNSPECIFIED (6) HTN (hypertension) Code(s): I10 - ESSENTIAL (PRIMARY) HYPERTENSION Assessment/Plan 43 y.o. male with PMH of UTI/Nephrolithiasis, HTN, HLD, DM, and morbid obesity presenting with episodes of n/v and Rt abdominal pain that began the prior evening Acute gastroenteritis - no further vomiting, no diarrhea Ureteral stones/bilateral hydronephrosis, suspected UTI ROSALVA - creatinine rising RLE wounds/erythema - r/o infection finish abx wound care rest as per the team stable
[2018-09-30] MEDS ORDERED: ACETAMINOPHEN 325 MG TABLET (FP) PO PRN (12:50)
[2018-09-30] MEDS ORDERED: ONDANSETRON 4 MG/2 ML VIAL IVPUSH PRN (12:50)
[2018-09-30] MEDS ORDERED: LACTATED RINGERS SOLUTION 1,000 ML IV SCH (13:00)
--- NOTE | 2018-09-30 13:09 | DS ---
Physical Examination Vital Signs: Vital Signs Temperature 97.2 F L 09/30/18 10:19 Pulse Rate 70 09/30/18 10:19 Respiratory Rate 18 09/30/18 10:19 Blood Pressure 102/50 L 09/30/18 10:19 O2 Sat by Pulse Oximetry (%) 97 09/30/18 09:00 Constitutional: Yes: Well Nourished Eyes: Yes: WNL HENT: Yes: WNL Neck: Yes: WNL Cardiovascular: Yes: WNL Respiratory: Yes: WNL Gastrointestinal: Yes: WNL ...Rectal Exam: Yes: Deferred Renal/: Yes: CVA Tenderness - Right Breast(s): Yes: WNL Musculoskeletal: Yes: WNL Edema: Yes Edema: LLE: 2+, RLE: 2+ Peripheral Pulses WNL: Yes Integumentary: Yes: WNL Wound/Incision: Yes: Clean/Dry ...Motor Strength: WNL Psychiatric: Yes: WNL Labs: CBC, BMP 09/30/18 07:00 09/30/18 07:00 Discharge Summary Reason For Visit: CALCULUS OF KIDNEY Current Active Problems Kidney stone (Acute) Wound cellulitis (Acute) Wound of right leg (Acute) Condition: Good - Instructions Diet, Activity, Other Instructions: Diabetic diet as before, force oral fluids, continue flomax, Office visit next week. Has bilateral stents.Take motrin or alleve for pain. May notice some bloody urine. In that case increase oral fluids. cont all meds ronak is Referrals: Nimesh Loyd MD [Primary Care Provider] - Disposition: HOME - Home Medications Comprehensive Discharge Medication List: Ambulatory Orders Cephalexin Monohydrate [Keflex -] 500 mg PO Q8H 09/27/18 metFORMIN HCL [Metformin HCl] 500 mg PO BID 09/27/18 Tamsulosin HCl [Flomax] 0.4 mg PO DAILY #14 cap.er.24h 09/30/18 levoFLOXacin [Levaquin -] 500 mg PO DAILY@0600 #7 tablet 09/30/18
--- NOTE | 2018-09-30 13:48 | OP ---
DATE OF OPERATION: 09/30/2018 SURGEON: Anoop Yarbrough MD ANESTHESIA: General. PREOPERATIVE DIAGNOSIS: Bilateral nephrolithiasis. POSTOPERATIVE DIAGNOSIS: Bilateral nephrolithiasis. PROCEDURE: Cystoscopy and bilateral stent placement. FINDINGS: Urethra normal. Bladder filled with multiple small renal calculi orifices laterally placed. Bladder shows mild evidence of cystic changes. DESCRIPTION OF PROCEDURE: With the patient in the lithotomy position, under anesthesia, he was prepped and draped in the usual manner using a 22-scope. Cystoscopy was performed with some difficulty. A guidewire was placed in the left collecting system and confirmed with an x-ray and then a stent was placed. A similar procedure was carried out on the left side again confirmed with x-ray. The patient tolerated the procedure well and left the operating room in satisfactory condition. ANOOP YARBROUGH M.D. [id number]
[2018-09-30 15:47] VITALS: BP 154/80; PULSE 87; TEMP 98.3
[2018-10-08 16:30] LABS: SIZE 4x4x3 mm (.); URIC ACID 100 % (.); WEIGHT 40.9 mg (.)
== END 2018-09-30 15:54 | disposition home or self-care (01) | DRG 443 ==
LOC: JER 06:06 → JERBED 13:12 → J6S 15:25 → OBSVTOIN 15:52
PROVIDERS: ADMIT Family Medicine; ATTEND Family Medicine
PROC: 0T738DZ Dilation of Right Kidney Pelvis with Intraluminal Device, Via Natural or Artificial Opening Endoscopic (ICD-10-PCS; 2018-09-30)
PROC: 0T748DZ Dilation of Left Kidney Pelvis with Intraluminal Device, Via Natural or Artificial Opening Endoscopic (ICD-10-PCS; principal; 2018-09-30 13:30)
DX: N13.6 Pyonephrosis (principal); I10 Essential (primary) hypertension; E78.5 Hyperlipidemia, unspecified; E66.01 Morbid (severe) obesity due to excess calories; Z68.44 Body mass index [BMI] 60.0-69.9, adult; E11.65 Type 2 diabetes mellitus with hyperglycemia; L03.115 Cellulitis of right lower limb; S81.801A Unspecified open wound, right lower leg, initial encounter; R33.8 Other retention of urine
CPT/HCPCS: 36415; 71046-TC-FY; 74176-TC; 76000-TC-FY; 76775-TC; 76856-TC; 80048; 80053; 81003; 81015; 82009; 82360; 82962; 83036; 85025; 85610; 87070; 87081; 87086; 87186; 87205; 94760; 99283-25; G0378; J7030

== ENCOUNTER 2019-01-23 12:38 | Day surgery (SDC) | payer OTHER ==
[2019-01-22 13:10] VITALS: BMI 48.2
[2019-01-23] MEDS ORDERED: SUCCINYLCHOLINE CHLORIDE 200 MG/10 ML VIAL ONE (15:29)
[2019-01-23] MEDS ORDERED: MIDAZOLAM HCL 2 MG/2 ML SINGLE DOSE VIAL ONE (15:29)
[2019-01-23] MEDS ORDERED: PROPOFOL 20 ML ONE ×2 (15:29)
--- NOTE | 2019-01-23 15:41 | OP ---
Operative Note - Note: Operative Date: 01/23/19 Pre-Operative Diagnosis: corina. hydro, corina. jj stents, corina. renal and ureteral stones Operation: cysto, d/c corina. jj stents corina. retrograde pyelogram. croina. stone basketting and corina. jj stents reinsertion Findings: corina. jj stents, corina. renal stones Post-Operative Diagnosis: Same as Pre-op Surgeon: Elisabet Loyd Anesthesia: General Specimens Removed: stones and urine Estimated Blood Loss (mls): 0 Drains & Tubes with Location: corina. jj stents 24cm-6f Drains, Volume Out (mls): 0 Blood Volume Replaced (mls): 0 Operative Report Dictated: Yes
[2019-01-23] MEDS ORDERED: DESFLURANE GAS 240 ML BOTTLE IH ONE (15:58)
[2019-01-23] MEDS ORDERED: ceFAZolin SODIUM 1 GM VIAL IVPB ONE (16:00)
[2019-01-23] MEDS ORDERED: ceFAZolin SODIUM 1 GM VIAL ONE (16:02)
--- NOTE | 2019-01-23 16:10 | PREOP ---
DATE OF ADMISSION: 01/23/2019 HISTORY OF PRESENT ILLNESS: The patient is a 43-year-old male with a history of bilateral kidney stones status post laser lithotripsy. He has had bilateral JJ stents placed since October 2018, presently there is bilateral CVA tenderness. The patient underwent a CAT scan as well as an ultrasound, and this revealed bilateral hydronephrosis with bilateral renal as well as ureteral stones. The patient does have history of high blood pressure and diabetes. He takes lisinopril and Flomax. He has got chronic lymphedema of the lower extremities. There is no allergy, ethanolism, or tobacco. PHYSICAL EXAMINATION: General: Well developed adult male. Vital signs: Stable. Genitourinary: Normal genitalia. Prostate is 2+, benign and nontender. IMPRESSION: At present is bilateral JJ stents, bilateral renal and ureteral stones, bilateral hydronephrosis. PLAN: Bilateral cystoscopy with bilateral retrograde pyelograms, removal of stents, possible basketing and reinsertion of new stents. Kelsey [id number]
[2019-01-23] MEDS ORDERED: DEXAMETHASONE SOD PHOSPHATE 4 MG/1 ML VIAL ONE (16:11)
[2019-01-23] MEDS ORDERED: oxyCODONE HCL 5 MG TABLET PO PRN (16:55)
[2019-01-23] MEDS ORDERED: ONDANSETRON 4 MG/2 ML VIAL IVPUSH PRN (16:55)
[2019-01-23] MEDS ORDERED: LACTATED RINGERS SOLUTION 1,000 ML IV SCH (17:00)
[2019-01-23 19:55] VITALS: BP 119/79; PULSE 75; TEMP 98.1
--- NOTE | 2019-01-27 10:20 | PATH ---
Surgical Pathology Report Patient Name: MARISA PACHECO Med. Rec. #: [id number] /Age/Gender: 1975 (Age: 43) / M Account: [id number] Location: [facility] Taken: 01/23/2019 Received: 01/26/2019 Reported: 01/27/2019 Physicians: Elisabet Loyd M.D. Specimen(s) Received A: BILATERAL URETERAL STONES B: BILATERAL STENTS Clinical History Bilateral ureteral stent Final Diagnosis A. URETERAL STONES, BILATERAL, STONE BASKETING: URETEROLITHIASIS. MACROSCOPIC DIAGNOSIS. B. JJ STENT, BILATERAL, REMOVAL: STENT. MACROSCOPIC DIAGNOSIS. Electronically Signed Denise Perez M.D. Gross Description A. Received fresh labeled "bilateral ureteral stones," is a 2.0 x 1.2 x 0.3 cm aggregate of palmer, irregular to fragmented calculi. The specimen is sent for chemical analysis. B. Received fresh labeled "bilateral JJ stent," are 2 vega, coiled portions of tubing, consistent with ureteral stents. The stents average 35 cm in length. No soft tissue is present. No sections are submitted, gross only. DL/01/26/2019 saudi01/26/2019
[2019-01-31 12:15] LABS: URIC ACID 100 % (.); WEIGHT 361.2 mg (.)
--- NOTE | 2019-02-12 12:24 | OP ---
DATE OF OPERATION: 01/23/2019 PREOPERATIVE DIAGNOSES: Bilateral hydronephrosis, bilateral renal stones, status post bilateral Double-J stents. POSTOPERATIVE DIAGNOSES: Bilateral hydronephrosis, bilateral renal stones, status post bilateral Double-J stents. OPERATIVE PROCEDURE: Cystourethroscopy, removal of bilateral JJ-stents, bilateral retrograde pyelogram, bilateral stone basketing, and bilateral reinsertion of stents. ANESTHESIA: General. SURGEON: Elisabet Loyd MD DESCRIPTION OF PROCEDURE: Under above-stated anesthesia, patient is prepped and draped in the usual sterile manner. He is placed in the dorsal lithotomy position. Cystoscopy under anesthesia using a 30-degree continuous flow scope revealed a normal anterior urethra. Prostatic urethra was slightly injected. The bladder was entered. Urine was collected for cultures and sensitivity. Inspection of the bladder revealed the right and left JJ stent in the bladder. No other lesions were seen. No calculi were noted. Dome and lateral murphy were clear. Using a biopsy forceps, the right and left JJ stents were removed atraumatically. A flexure tip catheter was then placed into the right ureteral orifice, and 7 mL of contrast was injected. This revealed several filling defects in the lower ureter with proximal hydroureteronephrosis. Therefore, a glidewire was passed up the right renal unit, and a semi-rigid ureteroscope was introduced. The lower ureter revealed 2 small stones. They were grabbed with a stone basket under direct vision and removed. A continuation of the ureteroscope revealed no other stones or lesions. Same thing was performed on the left side. Afterward, a 24-cm 6-Omani JJ stent was passed up the right renal unit. Same thing was done to the left renal unit. X-ray control revealed good position of the stents. The bladder was emptied. The scope was removed. The patient tolerated the procedure well. He returned to the recovery room in good condition. Kelsey [id number]
== END 2019-01-23 19:35 | disposition home or self-care (01) ==
LOC: JASU-SURG 12:38
PROVIDERS: ATTEND Urology
PROC: 0T9880Z Drainage of Bilateral Ureters with Drainage Device, Via Natural or Artificial Opening Endoscopic (ICD-10-PCS; 2019-01-23)
PROC: BT14YZZ Fluoroscopy of Kidneys, Ureters and Bladder using Other Contrast (ICD-10-PCS; 2019-01-23)
PROC: 0TC78ZZ Extirpation of Matter from Left Ureter, Via Natural or Artificial Opening Endoscopic (ICD-10-PCS; principal; 2019-01-23 14:30)
PROC: 0TC68ZZ Extirpation of Matter from Right Ureter, Via Natural or Artificial Opening Endoscopic (ICD-10-PCS; 2019-01-23 14:30)
DX: N13.2 Hydronephrosis with renal and ureteral calculous obstruction (principal); I10 Essential (primary) hypertension; E11.9 Type 2 diabetes mellitus without complications
CPT/HCPCS: 36415; 76000-TC-FY; 82360; 87086; 88300-TC; 94760

== ENCOUNTER 2019-06-29 21:16 | Emergency (ER) | payer OTHER ==
[2019-06-29 21:24] VITALS: BMI 41.0
--- NOTE | 2019-06-29 21:24 | PDOC ---
Rapid Medical Evaluation Chief Complaint: Pain Time Seen by Provider: 06/29/19 21:19 Medical Evaluation: Allergies Allergy/AdvReac Type Severity Reaction Status Date / Time Penicillins Allergy Verified 01/22/19 13:11 piperacillin sodium Allergy Verified 01/22/19 13:11 [From Zosyn] tazobactam sodium Allergy Verified 01/22/19 13:11 [From Zosyn] 06/29/19 21:20 I have performed a brief in-person evaluation of this patient. The patient presents with a chief complaint of: urinary frequency, dysuria and suprapubic discomfort for a week. Report saw PCP who did blood work few days ago which was normal. pt report he feels he has a fever checked by his family over an hour ago and has not taken anything for fever Pertinent physical exam findings: afebrile. A&O in NAD I have ordered the following: cbc, cmp, UA, UCx The patient will proceed to the ED for further evaluation. Discharge Disposition - Diagnosis Dysuria - Discharge Dispostion Condition at time of disposition: Stable - Referrals - Patient Instructions - Post Discharge Activity
[2019-06-29] MEDS ORDERED: SODIUM CHLORIDE 1,000 ML IV STA (23:27)
[2019-06-29] MEDS ORDERED: FAMOTIDINE 20 MG/50 ML IVPB 20 MG/50 ML MG IVPB ONE (23:27)
[2019-06-29] MEDS ORDERED: ACETAMINOPHEN 1000 MG/100 ML VIAL (NON FORMULARY) IVPB ONE (23:28)
[2019-06-29] MEDS ORDERED: ONDANSETRON 4 MG/2 ML VIAL IVPUSH ONE (23:41)
--- NOTE | 2019-06-29 23:43 | PDOC ---
History of Present Illness - General Chief Complaint: Pain Stated Complaint: DIZZY Time Seen by Provider: 06/29/19 21:19 History Source: Patient Exam Limitations: No Limitations - History of Present Illness Initial Comments: 06/29/19 23:37 44yo M with PMH of HTN, Kidney stones (bilateral stents), Lymphedema presenting to ED with complaints of abdominal pain, dysuria, bloating, nausea, decreased appetite for a few days. Abdominal pain started 2h ago and felt "like a punch to the stomach". Pain is in the lower abdomen, does not radiate, intermittent, no alleviating or aggravating factors. He has had the dysuria, bloating for the past few days. Also endorses chills and tactile fever. He has not had pain like this before. He has had UTI's in the past but this pain is different. He also states that his stool is darker than usual. Denies history of colon cancer or family history of colon cancer. Denies post prandial abdominal pain or pain with defecation. No sick contacts, recent travel, vomiting, diarrhea, constipation, chest pain, sob, headache, abdominal surgeries. PMD: Rosalinda Loyd Uro: Kishan Loyd PMH: see hpi PSH: stents Allergies: PCN (hives) Social: denies Meds: losartan, furosemide, tamsulosin, multivitamin Past History - Past Medical History Allergies/Adverse Reactions: Allergies Allergy/AdvReac Type Severity Reaction Status Date / Time Penicillins Allergy Verified 06/29/19 21:23 piperacillin sodium Allergy Verified 06/29/19 21:23 [From Zosyn] tazobactam sodium Allergy Verified 06/29/19 21:23 [From Zosyn] Home Medications: Ambulatory Orders Lisinopril 5 mg PO DAILY 01/22/19 Multivitamin [One-Daily Multi-Vitamin] 1 each PO DAILY 01/22/19 Sulfamethoxazole/Trimethoprim [Bactrim Ds -] 1 tab PO BID #14 tablet 06/30/19 Anemia: No Asthma: No Cancer: No Cardiac Disorders: Yes (HTN, HLD) CVA: No COPD: No CHF: No Dementia: No Diabetes: No (lost over 100 pounds) GI Disorders: Yes (OBESITY.) Disorders: Yes (stones, UTI) HTN: Yes Hypercholesterolemia: No Liver Disease: No Seizures: No Thyroid Disease: No - Surgical History Abdominal Surgery: No Appendectomy: No Cardiac Surgery: No Cholecystectomy: No Lung Surgery: No Neurologic Surgery: No Orthopedic Surgery: No - Immunization History Immunization Up to Date: Yes - Suicide/Smoking/Psychosocial Hx Smoking History: Never smoked Have you smoked in the past 12 months: No Hx Alcohol Use: No Drug/Substance Use Hx: No Substance Use Type: None Hx Substance Use Treatment: No Review of Systems - Review of Systems Constitutional: Yes: Chills, Fever, Weakness HEENTM: No: Symptoms Reported Respiratory: No: Symptoms reported Cardiac (ROS): No: Symptoms Reported ABD/GI: Yes: See HPI : Yes: See HPI. No: Flank Pain, Urgency, Testicular Swelling, Testicular Pain Musculoskeletal: No: Symptoms Reported Integumentary: No: Symptoms Reported Neurological: No: Symptoms reported *Physical Exam - Vital Signs Last Vital Signs Temp Pulse Resp BP Pulse Ox 98.3 F 93 H 18 108/66 98 06/29/19 21:19 06/29/19 21:19 06/29/19 21:19 06/29/19 21:19 06/29/19 21:19 - Physical Exam General Appearance: Yes: Appropriately Dressed, Obese. No: Apparent Distress HEENT: positive: EOMI, CARRI, Normal ENT Inspection Neck: positive: Trachea midline, Supple Respiratory/Chest: positive: Lungs Clear, Normal Breath Sounds. negative: Accessory Muscle Use Cardiovascular: positive: Regular Rhythm, Regular Rate, S1, S2. negative: Edema , JVD, Murmur Vascular Pulses: Dorsalis-Pedis (R): 2+, Doralis-Pedis (L): 2+ Gastrointestinal/Abdominal: positive: Normal Bowel Sounds, Soft. negative: Tender, Guarding, Rebound, Tenderness, Hernia Rectal Exam: positive: NL Prostate, normal rectal tone. negative: heme negative stool, melena Musculoskeletal: negative: CVA Tenderness, CVA Tenderness (R), CVA Tenderness (L ) Extremity: positive: Normal Capillary Refill, Pelvis Stable Integumentary: positive: Normal Color, Dry, Warm Neurologic: positive: oncology navigator II-XII NML intact, Fully Oriented, Alert, Normal Mood/ Affect, Normal Response, Motor Strength 5/5 ED Treatment Course - LABORATORY CBC & Chemistry Diagram: 06/30/19 00:59 06/30/19 00:59 Medical Decision Making - Medical Decision Making 06/29/19 23:42 44yo M with PMH of HTN, Kidney stones (bilateral stents), Lymphedema presenting to ED with complaints of abdominal pain, dysuria, bloating, nausea, decreased appetite for a few days. Abdominal pain started 2h ago and felt "like a punch to the stomach". Pain is in the lower abdomen, does not radiate, intermittent, no alleviating or aggravating factors. He has had the dysuria, bloating for the past few days. Also endorses chills and tactile fever. He has not had pain like this before. He has had UTI's in the past but this pain is different. He also states that his stool is darker than usual. Denies history of colon cancer or family history of colon cancer. Denies post prandial abdominal pain or pain with defecation. No sick contacts, recent travel, vomiting, diarrhea, constipation, chest pain, sob, headache, abdominal surgeries. Vitals: wnl PE: obese, soft abdomen, no tenderness. no cva tenderness. appears pale ddx includes but not limted to uti, pyelo, ulcer, gi bleed, stone low suspicion for stone. with abdominal pain, pt appearing pale and stating stool is darker than usual, will order guaiac, ts, and coags along with cbc, cmp , lipase, ua, ucx. -iv fluids, pepcid, zofran, tylenol 06/30/19 02:38 chemistires hemolyzed. chem wnl. ua positive for infection without hematuria and protenuria. pt stating pain is better. No flank tenderness. WBC 14. has had uti in the past with elevated wbc. pt is afebrile, normotensive and normocardic. Will give bactrim (prior ucx grew ecoli sensitive to bactrim) pt cannot have pcn. Has pmd and urology f/u. safe for dc home. given rx for bactrim and given return precautions. *DC/Admit/Observation/Transfer Diagnosis at time of Disposition: Dysuria UTI (urinary tract infection) Qualifiers: Urinary tract infection type: site unspecified Hematuria presence: without hematuria Qualified Code(s): N39.0 - Urinary tract infection, site not specified - Discharge Dispostion Disposition: HOME Condition at time of disposition: Good Decision to Admit order: No - Prescriptions Prescriptions: Sulfamethoxazole/Trimethoprim [Bactrim Ds -] 1 tab PO BID #14 tablet - Referrals Referrals: [facility] [Primary Care Provider] - Gisella Loyd MD [Staff Physician] - - Patient Instructions Printed Discharge Instructions: DI for Urinary Tract Infection (UTI) Additional Instructions: You were seen in the emergency room today for abdominal pain and burning with urination. You have a urinary tract infection. A prescription was sent to your pharmacy. Take it twice a day for 7 days. I highly recommend that you follow up with your primary care doctor and your urologist. Keep yourself well hydrated! Drink plenty of fluids. You can take Tylenol or ibuprofen for the pain as needed. Come back to the emergency room if you have worsening symptoms, have worsening flank pain, have fevers or if any new concerning symptom develops. Thank you - Post Discharge Activity
[2019-06-30] MEDS ORDERED: ACETAMINOPHEN INJECTION 100 ML IVPB ONE (00:01)
[2019-06-30] MEDS ORDERED: FAMOTIDINE 20 MG/50 ML IVPB 20 MG/50 ML MG IVPB ONE (00:02)
[2019-06-30] MEDS ORDERED: ONDANSETRON 4 MG/2 ML VIAL ONE (00:02)
[2019-06-30 00:37] LABS: EPI CELLS 0.4 /HPF (0-5/HPF); HYALINE CASTS 4 /lpf (0-8); URINE APPEARANCE CLOUDY; URINE BACTERIA 300.5 /hpf (NEGATIVE); URINE BILIRUBIN NEGATIVE (NEGATIVE); URINE COLOR YELLOW; URINE GLUCOSE (UA) NEGATIVE (NEGATIVE); URINE KETONE NEGATIVE (NEGATIVE); URINE LEUK ESTERASE 3+ (NEGATIVE); URINE NITRITE NEGATIVE (NEGATIVE); URINE PROTEIN NEGATIVE (NEGATIVE); URINE RBC 3 /hpf (0-4); URINE WBC 162 /hpf (0-5)
[2019-06-30] MEDS ORDERED: SULFAMETHOXAZOLE/TRIMETHOPRIM 800MG/160MG D.S. TABLET PO ONE (01:01)
--- NOTE | 2019-06-30 01:08 | PDOC ---
Documentation entered by Nain Rosado SCRIBE, acting as scribe for Lyudmila Ma MD. Lyudmila Ma MD: This documentation has been prepared by the Ashlee fleming Elijah, SCRIBE, under my direction and personally reviewed by me in its entirety. I confirm that the documentation accurately reflects all work, treatment, procedures, and medical decision making performed by me. Attending Attestation - Resident Resident Name: Renee Holland - ED Attending Attestation I have performed the following: I have examined & evaluated the patient, The case was reviewed & discussed with the resident, I agree w/resident's findings & plan - HPI HPI: 06/30/19 00:48 Patient is a 44 year old male with a significant past medical history HTN and Bilateral Urethral Stents who presents to the ED with lower abdominal pain beginning x2 hours ago. The patient notes that his pain is intermittent, lasts for 30 minutes at a time and is worse than "any pain he has experienced before. " Patient associates fever and chills with his pain. Patient also notes he has experienced some dysuria, nausea, dark stool and bloating over the last couple of days prior. Denies vomiting. Allergies: Penicillins, Piperacillin Sodium, tazobactam sodium PCP: Dr. Loyd - Physicial Exam PE: 06/30/19 01:00 GENERAL: +Morbidly Obese Awake, alert, and fully oriented, in no acute distress HEAD: No signs of trauma EYES: PERRLA, EOMI, sclera anicteric, conjunctiva clear ENT: +Tissue in Right nares. Auricles normal inspection, hearing grossly normal , nares patent, oropharynx clear without exudates. Moist mucosa NECK: Normal ROM, supple, no lymphadenopathy, JVD, or masses LUNGS: Breath sounds equal, clear to auscultation bilaterally. No wheezes, and no crackles HEART: Regular rate and rhythm, normal S1 and S2, no murmurs, rubs or gallops ABDOMEN: +Protuberant Belly. Soft, nontender, normoactive bowel sounds. No guarding, no rebound. No masses EXTREMITIES: +Lower Extremity Edema w/ skin wrapped for chronic lymphedema according to the patient NEUROLOGICAL: Cranial nerves II through XII grossly intact. Normal speech SKIN: Warm, Dry 07/30/19 01:02 - Medical Decision Making 06/30/19 01:04 PMH chronic b/l lymphedema, leg ulcers,UTI,morbid obesity Labs reviewed :chemistries unremarkable UA++ infection noted 06/30/19 01:07 stool culture for occult blood is NEGATIVE 06/30/19 01:46
[2019-06-30 01:36] LABS: BASO % 0.5 % (0-2.0); EOS % 0.2 % (0-4.5); RDW 14.5 % (11.9-15.9)
[2019-06-30] MEDS ORDERED: SULFAMETHOXAZOLE/TRIMETHOPRIM 800MG/160MG D.S. TABLET ONE (01:40)
[2019-06-30 01:44] LABS: ALBUMIN 2.4 g/dl (3.4-5.0); BILIRUBIN,TOTAL 0.5 mg/dL (0.2-1); CALCIUM 7.9 mg/dL (8.5-10.1); CREATININE 1.2 mg/dL (0.55-1.3); POTASSIUM 3.5 mmol/L (3.5-5.1)
[2019-06-30 01:45] LABS: LIPASE 122 U/L (73-393)
[2019-06-30 01:50] LABS: HEMATOCRIT 29.5 % (35.4-49); HEMOGLOBIN 10.1 GM/dL (11.7-16.9); MCH 29.4 pg (25.7-33.7); MCHC 34.1 g/dl (32.0-35.9); MEAN CELL VOLUME 86.1 fl (80-96); MEAN PLT VOLUME 8.2 fl (7.5-11.1); NEUT % 71.3 % (42.8-82.8); PLATELET COUNT 312 K/MM3 (134-434); RBC 3.43 M/mm3 (4.00-5.60)
[2019-06-30 02:36] LABS: INR 1.39 (0.83-1.09); PROTHROMBIN TIME (PATIENT) 16.4 SEC (9.7-13.0)
[2019-06-30 02:59] VITALS: BP 109/57; PULSE 88; TEMP 98.2
--- NOTE | 2019-06-30 09:28 | EKG ---
Test Reason : Blood Pressure : / mmHG Vent. Rate : 080 BPM Atrial Rate : 080 BPM P-R Int : 110 ms QRS Dur : 114 ms QT Int : 410 ms P-R-T Axes : -02 027 016 degrees QTc Int : 472 ms SINUS RHYTHM WITH SHORT AL INCOMPLETE RIGHT BUNDLE BRANCH BLOCK BORDERLINE ECG WHEN COMPARED WITH ECG OF 15-SEP-2018 11:23, INCOMPLETE RIGHT BUNDLE BRANCH BLOCK IS NOW PRESENT Confirmed by Karl Orellana MD ([id number]) on 06/30/2019 9:28:10 AM Referred By: Confirmed By:Karl Orellana MD
== END 2019-06-30 03:03 | disposition home or self-care (01) ==
LOC: JER 21:16
PROC: 3E033GC Introduction of Other Therapeutic Substance into Peripheral Vein, Percutaneous Approach (ICD-10-PCS; principal; 2019-06-29)
PROC: 3E033NZ Introduction of Analgesics, Hypnotics, Sedatives into Peripheral Vein, Percutaneous Approach (ICD-10-PCS; 2019-06-29)
PROC: 3E033GC Introduction of Other Therapeutic Substance into Peripheral Vein, Percutaneous Approach (ICD-10-PCS; 2019-06-29)
DX: N39.0 Urinary tract infection, site not specified (principal); I10 Essential (primary) hypertension; Z87.440 Personal history of urinary (tract) infections; E66.01 Morbid (severe) obesity due to excess calories; Z68.41 Body mass index [BMI] 40.0-44.9, adult
CPT/HCPCS: 36415; 80053; 81003; 82272; 83690; 84484; 85025; 85610; 85730; 86850; 86900; 86901; 87086; 93005; 93010; 96365; 96375; 99283-25; J0131; J7030

== ENCOUNTER 2019-08-14 08:52 | Day surgery (SDC) | payer OTHER ==
[2019-08-12 18:19] VITALS: BMI 41.5
[2019-08-14] MEDS ORDERED: SODIUM CHLORIDE 0.9% P/F 10 ML VIAL IJ ONE (10:16)
[2019-08-14] MEDS ORDERED: ceFAZolin SODIUM 1 GM VIAL ONE (10:16)
[2019-08-14] MEDS ORDERED: EPHEDRINE SULFATE/0.9% NACL/PF 50 MG/10 ML SYRINGE NR ONE (10:16)
[2019-08-14] MEDS ORDERED: PROPOFOL 20 ML ONE ×2 (10:16)
[2019-08-14] MEDS ORDERED: SUCCINYLCHOLINE CHLORIDE 200 MG/10 ML SYRINGE ONE (10:17)
[2019-08-14] MEDS ORDERED: MIDAZOLAM HCL 2 MG/2 ML SINGLE DOSE VIAL ONE (10:17)
[2019-08-14] MEDS ORDERED: IOHEXOL 300 MG/ML INFUS..BTL IV ONE (10:21)
[2019-08-14] MEDS ORDERED: DEXAMETHASONE SOD PHOSPHATE 4 MG/1 ML VIAL ONE (10:22)
--- NOTE | 2019-08-14 10:30 | HP ---
DATE OF ADMISSION: 08/14/2019 Patient is a 43-year-old male with history of bilateral renal stones. He had bilateral hydroureteronephrosis, and on April 20, 2019, underwent bilateral JJ stent insertion. Patient developed urosepsis and was in the hospital for IV imipenem. He has undergone several treatments of extracorporeal shock wave lithotripsy. Patient is morbidly obese with bilateral lymphedema of the lower extremities. He is a hypertensive and a dyslipidemic. He does take lisinopril for his high blood pressure. ALLERGIES: He is allergic to PENICILLIN. An ultrasound revealed bilateral upper pole renal stones and bilateral JJ stents. The plan is to do cystoscopy, remove the stents, do bilateral retrograde pyelograms, and make sure that the drainage is adequate. If there is a delay in drainage, we will reinsert new stents. ZOË DEAL M.D. [id number]
[2019-08-14] MEDS ORDERED: ceFAZolin SODIUM 1 GM VIAL IVPB ONE (10:31)
--- NOTE | 2019-08-14 10:50 | OP ---
Operative Note - Note: Operative Date: 08/14/19 Pre-Operative Diagnosis: corina. hydroureteral nephrosis and corina. renal stones, s/ p corina. jj stents
[2019-08-14] MEDS ORDERED: KETOROLAC TROMETHAMINE 30 MG/1 ML VIAL ONE (11:00)
--- NOTE | 2019-08-14 11:15 | OP ---
Operative Note - Note: Operative Date: 08/14/19 Pre-Operative Diagnosis: corina. jj stents and corina. renal stones Operation: cysto and corina. stent exchange Post-Operative Diagnosis: Same as Pre-op Surgeon: Elisabet Loyd Anesthesia: General Specimens Removed: corina. jj stents Estimated Blood Loss (mls): 0 Drains, Volume Out (mls): 0 Blood Volume Replaced (mls): 0 Fluid Volume Replaced (mls): 0 Operative Report Dictated: Yes
[2019-08-14] MEDS ORDERED: ONDANSETRON 4 MG/2 ML VIAL IVPUSH PRN (11:32)
[2019-08-14] MEDS ORDERED: oxyCODONE HCL 5 MG TABLET PO PRN (11:32)
[2019-08-14] MEDS ORDERED: LACTATED RINGERS SOLUTION 1,000 ML IV SCH (11:45)
[2019-08-14] MEDS ORDERED: oxyCODONE HCL 5 MG TABLET ONE (12:03)
[2019-08-14 12:37] VITALS: TEMP 97.8
[2019-08-14 15:58] VITALS: BP 131/67; PULSE 62
--- NOTE | 2019-08-17 18:46 | PATH ---
Surgical Pathology Report Patient Name: MARISA PACHECO Med. Rec. #: [id number] /Age/Gender: 1975 (Age: 44) / M Account: [id number] Location: [facility] SUR[facility]ICAL Taken: 08/14/2019 Received: 08/14/2019 Reported: 08/17/2019 Physicians: Elisabet Loyd M.D. Specimen(s) Received A: RIGHT URETERAL STENT B: LEFT URETERAL STENT Clinical History Hydronephrosis, renal and ureteral calculus, bilateral ureteral stent removal Final Diagnosis A. URETERAL STENT, RIGHT, REMOVAL: URETERAL STENT. MACROSCOPIC DIAGNOSIS. B. URETERAL STENT, LEFT, REMOVAL: URETERAL STENT. MACROSCOPIC DIAGNOSIS. Electronically Signed Denise Perez M.D. Gross Description A. Received fresh "right ureteral stent" is a light blue stent consistent with a ureteral stent, coiled in both ends, which measures 30 cm in length and 0.1 cm diameter. No soft tissue present, for gross examination only. B. Received fresh "left ureteral stent" is a light blue stent consistent with a ureteral stent, coiled in both ends, which measures 30 cm in length and 0.1 cm diameter. No soft tissue present, for gross examination only. MLSZ/08/14/2019 sanml/08/14/2019
--- NOTE | 2019-09-11 11:25 | OP ---
DATE OF OPERATION: 08/14/2019 PREOPERATIVE DIAGNOSIS: Bilateral hydronephrosis, status post bilateral JJ stents, history of bilateral nephrolithiasis. OPERATIVE PROCEDURE: Cystourethroscopy, bilateral stent exchange, bilateral retrograde pyelograms. ANESTHESIA: General. Under above-stated anesthesia, patient is prepped and draped in the usual sterile manner. He is placed in the dorsal lithotomy position. Cystoscopy revealed mild prostatic hypertrophy. No lesions were noted. The bladder was entered. Urine was collected for culture and sensitivity. Inspection of the bladder revealed bilateral JJ stents. They were both removed with biopsy forceps atraumatically. Bilateral retrograde pyelograms were then performed. This revealed mild bilateral hydroureteronephrosis with mild bilateral stones. Therefore, 2 JJ stents were placed, one on the right, one on the left. They were 24-cm, 6-[place]. X-rays confirmed good position of the stents. The bladder was emptied. Scope was removed. Patient tolerated the procedure well. He returned to the recovery room in good condition. Kelsey [id number]
== END 2019-08-14 14:40 | disposition home or self-care (01) ==
LOC: JASU-SURG 08:52
PROVIDERS: ATTEND Urology
PROC: 0TW Urinary System, Revision (ICD-10-PCS; 2019-08-14)
PROC: 0T7D8DZ Dilation of Urethra with Intraluminal Device, Via Natural or Artificial Opening Endoscopic (ICD-10-PCS; principal; 2019-08-14 10:00)
PROC: 0T7D8DZ Dilation of Urethra with Intraluminal Device, Via Natural or Artificial Opening Endoscopic (ICD-10-PCS; 2019-08-14 10:00)
DX: N13.39 Other hydronephrosis (principal); Z87.442 Personal history of urinary calculi
CPT/HCPCS: 76000-TC-FY; 87086; 88300-TC; 94760

== ENCOUNTER 2022-02-07 04:21 | Emergency (ER) | payer OTHER ==
[2022-02-07 05:27] VITALS: TEMP 97.9; BMI 40.4
[2022-02-07] MEDS ORDERED: ONDANSETRON 4 MG/2 ML VIAL IVPUSH ONE (05:57)
[2022-02-07] MEDS ORDERED: SODIUM CHLORIDE 0.9% 1000 ML INFUS.BAG IV ONE (05:57)
[2022-02-07] MEDS ORDERED: ACETAMINOPHEN 1000 MG/100 ML BAG IVPB ONE (05:57)
[2022-02-07] MEDS ORDERED: ACETAMINOPHEN INJECTION 100 ML IVPB ONE (06:21)
[2022-02-07] MEDS ORDERED: ONDANSETRON 4 MG/2 ML VIAL ONE (06:22)
[2022-02-07 07:00] LABS: HEMATOCRIT 42.1 % (35.4-49); HEMOGLOBIN 14.3 GM/dL (11.7-16.9); MCH 29.7 pg (25.7-33.7); MEAN CELL VOLUME 87.5 fl (80-96); MEAN PLT VOLUME 8.4 fl (7.5-11.1); PLATELET COUNT 158 10^3/uL (134-434); RBC 4.81 M/mm3 (4.00-5.60); RDW 13.7 % (11.9-15.9); WHITE BLOOD COUNT 7.6 K/mm3 (4.0-10.0)
[2022-02-07 07:11] LABS: ALBUMIN 3.6 g/dl (3.4-5.0); CALCIUM 8.8 mg/dL (8.5-10.1)
[2022-02-07 07:12] LABS: MAGNESIUM 1.8 mg/dL (1.8-2.4)
[2022-02-07 07:14] LABS: CREATININE 1.2 mg/dL (0.55-1.3)
[2022-02-07 07:16] LABS: BILIRUBIN,TOTAL 0.8 mg/dL (0.2-1); TOT PROT 6.7 g/dl (6.4-8.2)
[2022-02-07] MEDS ORDERED: SODIUM CHLORIDE 1,000 ML IV STA (09:27)
[2022-02-07 09:40] LABS: URINE APPEARANCE CLEAR; URINE BILIRUBIN NEGATIVE (NEGATIVE); URINE COLOR YELLOW; URINE GLUCOSE (UA) NEGATIVE (NEGATIVE); URINE KETONE 1+ (NEGATIVE); URINE LEUK ESTERASE NEGATIVE (NEGATIVE); URINE NITRITE NEGATIVE (NEGATIVE); URINE PROTEIN NEGATIVE (NEGATIVE); URINE UROBILINOGEN 0.2 mg/dL (0.2-1.0)
[2022-02-07 09:46] LABS: ANISOCYTOSIS 0; HELMET CELLS 0; HOWELL-JOLLY BODIES 0; MACROCYTOSIS 0; OVALOCYTE 0; ROULEAU 0; SICKELED CELLS 0; TARGET CELLS 0; TEAR DROP CELLS 0; TOXIC GRANULATION 0
[2022-02-07 11:43] VITALS: BP 113/59; PULSE 78
== END 2022-02-07 15:18 | disposition home or self-care (01) ==
LOC: JER 04:21
PROC: 3E033GC Introduction of Other Therapeutic Substance into Peripheral Vein, Percutaneous Approach (ICD-10-PCS; principal; 2022-02-07)
DX: R11.2 Nausea with vomiting, unspecified (principal); R19.7 Diarrhea, unspecified; R14.0 Abdominal distension (gaseous)
CPT/HCPCS: 36415; 74177-TC; 80053; 81003; 83690; 83735; 84484; 85025; 87086; 93005; 93010; 99285-25; Q9967

== ENCOUNTER 2023-04-07 08:50 | Emergency (ER) | payer OTHER ==
[2023-04-07 08:58] VITALS: BP 131/78; PULSE 98; RESP 18; TEMP 98; BMI 37.6
== END 2023-04-07 10:15 | disposition home or self-care (01) ==
LOC: JERFT 08:50 → JER 08:50 → JERFT 10:15
DX: S80.02XA Contusion of left knee, initial encounter (principal); M25.562 Pain in left knee; W22.8XXA Striking against or struck by other objects, initial encounter
CPT/HCPCS: 73562-TC-LT-FY; 99283-25

== ENCOUNTER 2023-07-28 11:06 | Emergency (ER) | payer OTHER ==
[2023-07-28 11:15] VITALS: BP 135/90; PULSE 98; RESP 18; TEMP 97.8; BMI 36.2
[2023-07-28] MEDS ORDERED: OXYMETAZOLINE 0.05% NASAL SOLUTION 15 ML BOTTLE NS ONE (12:02)
[2023-07-28] MEDS ORDERED: LIDOCAINE HCL 2% JELLY 10 ML CARTRIDGE NGT ONE (14:09)
[2023-07-28] MEDS ORDERED: LIDOCAINE HCL 2% JELLY 11 ML TP ONE (14:21)
[2023-07-28] MEDS ORDERED: CLINDAMYCIN HCL 150 MG CAPSULE (FP) PO ONE (14:39)
[2023-07-28] MEDS ORDERED: CLINDAMYCIN HCL 150 MG CAPSULE (FP) ONE (14:50)
== END 2023-07-28 15:19 | disposition home or self-care (01) ==
LOC: JER 11:06
PROC: 093K7ZZ Control Bleeding in Nasal Mucosa and Soft Tissue, Via Natural or Artificial Opening (ICD-10-PCS; principal; 2023-07-28)
DX: R04.0 Epistaxis (principal)
CPT/HCPCS: 99283-25

== ENCOUNTER 2024-03-09 08:21 | Emergency (ER) | payer OTHER ==
[2024-03-09 08:37] VITALS: BMI 36.2
[2024-03-09 09:48] VITALS: RESP 18
[2024-03-09] MEDS ORDERED: ONDANSETRON 4 MG/2 ML VIAL ONE (10:21)
[2024-03-09] MEDS ORDERED: FAMOTIDINE 20 MG/50 ML IVPB 20 MG/50 ML MG IVPB ONE (10:21)
[2024-03-09] MEDS ORDERED: ACETAMINOPHEN INJECTION 100 ML IVPB ONE (10:21)
[2024-03-09] MEDS: ONDANSETRON 4 MG/2 ML VIAL IVPUSH ONE (10:30)
[2024-03-09] MEDS: ACETAMINOPHEN 1000 MG/100 ML BAG IVPB ONE (10:36)
[2024-03-09 10:40] LABS: BASO % 0.4 % (0-2.0); HEMATOCRIT 42.7 % (35.4-49); HEMOGLOBIN 14.1 GM/dL (11.7-16.9); LYMPH % 3.6 % (8-40); MEAN PLT VOLUME 7.8 fl (7.5-11.1); MONO % 6.4 % (3.8-10.2); NEUT % 89.6 % (42.8-82.8); PLATELET COUNT 190 10^3/uL (134-434); RBC 4.86 M/mm3 (4.00-5.60); RDW 15.5 % (11.9-15.9); WHITE BLOOD COUNT 5.2 K/mm3 (4.0-10.0)
[2024-03-09 11:00] LABS: CALCIUM 8.8 mg/dL (8.5-10.1)
[2024-03-09] MEDS: FAMOTIDINE 20 MG/50 ML IVPB 20 MG/50 ML MG IVPB ONE (11:00)
[2024-03-09 11:01] LABS: ALBUMIN 3.1 g/dl (3.4-5.0); BLOOD UREA NITROGEN 32.2 mg/dL (7-18); MAGNESIUM 2.3 mg/dL (1.8-2.4)
[2024-03-09 11:05] LABS: BILIRUBIN,TOTAL 0.6 mg/dL (0.2-1)
[2024-03-09 11:06] LABS: TOT PROT 6.4 g/dl (6.4-8.2)
[2024-03-09 12:42] VITALS: BP 110/65; PULSE 89; TEMP 98.2
== END 2024-03-09 12:42 | disposition home or self-care (01) ==
LOC: JER 08:21
PROC: 3E033GC Introduction of Other Therapeutic Substance into Peripheral Vein, Percutaneous Approach (ICD-10-PCS; principal; 2024-03-09)
PROC: 3E030NZ Introduction of Analgesics, Hypnotics, Sedatives into Peripheral Vein, Open Approach (ICD-10-PCS; 2024-03-09)
PROC: 3E030GC Introduction of Other Therapeutic Substance into Peripheral Vein, Open Approach (ICD-10-PCS; 2024-03-09)
DX: R11.2 Nausea with vomiting, unspecified (principal); R10.9 Unspecified abdominal pain; R42 Dizziness and giddiness; R53.83 Other fatigue; R68.83 Chills (without fever); Z20.822 Contact with and (suspected) exposure to COVID-19
CPT/HCPCS: 0241U-QW; 36415; 71046-TC-FY; 80053; 82962; 83690; 83735; 84484; 85025; 93005; 93010; 99285-25; J0131